=== PATIENT | female | born 1930 | race Caucasian/White ===

== ENCOUNTER 2016-12-23 07:20 | Emergency (ER) | payer MEDICARE, MEDICAID ==
[2016-12-23 08:11] LABS: Urine Bilirubin Negative (NEGATIVE); Urine Ketone 5 mg/dL (NEGATIVE); Urine Nitrite Negative (NEGATIVE); Urine Protein Negative (NEGATIVE); Urine Specific Gravity 1.015 SP.GR. (1.005-1.010); Urine Urobilinogen Normal (NORMAL)
[2016-12-23 08:12] LABS: Hematocrit 51.5 % (37.0-47.0); Hemoglobin 16.8 gm/dL (12.5-16.0); Mean Cell Volume 90.4 fl (78-100); Mean Corpuscular Hemoglobin 29.5 pg (27-31); Mean Corpuscular Hgb Conc 32.6 g/dl (32-36); Mean Platelet Volume 11.5 fl (6.0-9.5); Neutrophil # 8.2 K/mm3 (1.3-6.0); Neutrophil % 77.2 % (42-75.0); Platelet Count 228 K/mm3 (150-450); Red Cell Distribution Width 13.8 % (11.5-14.0); White Blood Count 10.6 K/mm3 (4.0-10.5)
[2016-12-23 08:23] LABS: INR 1.03 INR (0.90-1.10); Partial Thrombolplastin Time 27.4 Seconds (24-32); Prothrombin Time (Patient) 10.7 Seconds (9.4-11.4)
[2016-12-23 08:26] LABS: Albumin * 4.6 gm/dl (3.4-5.0); Anion Gap 12.8 mmol/L (6.8-13.8); BUN/Creatinine Ratio 13.7 (9.0-21.6); Bilirubin, Total 1.1 mg/dL (0.0-1.1); Ca. Corrected For Albumin 8.7 mg/dL (8.4-10.2); Calcium * 9.5 mg/dL (7.9-10.9); Potassium 3.8 mmol/L (3.4-4.6); Total Protein 9.1 gm/dL (6.2-8.2)
[2016-12-23 08:29] LABS: Urine Appearance Clear; Urine Bacteria None Seen; Urine Blood 10 /ul (NEGATIVE); Urine Color Yellow; Urine RBC 0-5 /hpf (0-5); Urine WBC TRACE /hpf (0-5)
--- NOTE | 2016-12-23 08:39 | ERNOTE ---
GI Bleeding/Rectal Pain ER Date of Service: 12/23/16 Presenting Symptoms: rectal bleeding Time Seen by Provider: 12/23/16 08:24 Source: patient, family Exam Limitations: no limitations Immunizations: IMMUNIZATION HX Immunizations Up to Date Yes History of Influenza Vaccine Yes Hx Pneumococcal Vaccination Yes Allergies/Adverse Reactions: Allergies aspirin Allergy (Verified 12/23/16 07:35) ciprofloxacin Allergy (Verified 12/23/16 07:35) codeine Allergy (Verified 12/23/16 07:35) levofloxacin Allergy (Verified 12/23/16 07:35) morphine Allergy (Verified 12/23/16 07:35) Sulfa (Sulfonamide Antibiotics) Allergy (Verified 12/23/16 07:35) amoxicillin trihydrate [From Augmentin] Adverse Reaction (Verified 12/23/16 07: 35) cephalexin Adverse Reaction (Verified 12/23/16 07:35) potassium clavulanate [From Augmentin] Adverse Reaction (Verified 12/23/16 07:35 ) Home Medications: HOME MEDICATIONS Levothyroxine Sodium [Synthroid] 50 mcg PO DAILY 12/11/15 [Last Taken 12/11/15 07:00] Nifedipine [Adalat cc] 60 mg PO DAILY 12/11/15 [Last Taken 12/11/15 07:00] Acetaminophen [Tylenol] 650 mg PO QID PRN #0 tablet 12/16/15 [Last Taken Unknown ] Polyethylene Glycol 3350 [Miralax] 17 gm PO BID #1 btl 12/16/15 [Last Taken Unknown] Promethazine HCl 12.5 mg PO QID PRN #12 tablet 12/23/16 [Last Taken Unknown] Narrative: At about 1400 yesterday began having bowel movements. To begin, normal texture , then became loose and several in number. This morning, three loose bowel movements, each with gross bright red blood. None in the [facility] ER so far. Also , left sided lower abdominal cramps, waxing and waning. No vomiting. No fever. Last colonoscopy over ten years ago. Previous PUD with part of her stomach removed because of it. Timing: intermittent Quality/Severity: Present: moderate Nausea/Vomiting: Present: none Abdominal Pain: Present: LLQ Rectal Bleeding: Present: blood mixed with stool Associated Symptoms: Denies: fainting, dizziness, light headedness, rectal pain Prior Treament: Denies: recently seen, similar symptoms before, currently on antibiotics Review of Systems - Review of Systems Constitutional: Present: no symptoms reported EYE: Present: no symptoms reported ENT: Present: other - chronic post nasal drip and sinus problems. Respiratory: Present: no symptoms reported Cardiology: Present: no symptoms reported Gastrointestinal/Abdominal: Present: See HPI Genitourinary: Present: no symptoms reported Musculoskeletal: Present: no symptoms reported Skin: Present: no symptoms reported Neurological: Present: no symptoms reported Endocrine: Present: no symptoms reported Hematologic/Lymphatic: Present: no symptoms reported Psych: Present: no symptoms reported All Other Systems: All systems neg except as marked - Patient's Past Medical History Patient History - Medical: Cataracts, Headache, Hypothyroidism, UTI'S Patient History - Cardiac/Respiratory: COPD, Hypertension Patient History - Cancer: No Hx of Cancer Patient History - Surgical Procedures: Hysterectomy, Other Patient History - Other: None - Family History Mother Family History - Medical: , Diabetes Type 2 Insulin Dependent Father Family History - Medical: - Social History Living Situations: alone Abuse History: No History of abuse Psych History: No pertinent hx Smoking Status: Former smoker Have you smoked in the past 12 months: No Do you dip or chew tobacco: No Alcohol Use: none Drug Use: none - Immunizations Immunizations Up to Date: Yes Hx Pneumococcal Vaccination: Yes History of Influenza Vaccine: Yes Physical Exam - Physical Exam General Appearance: Present: wd/wn, alert, no apparent distress Eye Exam: Normal inspection: bilateral, PERRL: bilateral, EOMI: bilateral Ears, Nose, Throat: Present: normal ENT inspection, hearing grossly normal Neck: Present: normal inspection, nontender Respiratory: Present: no respiratory distress, normal breath sounds Cardiovascular/Chest: Present: regular rate, rhythm, no murmur Gastrointestinal/Abdominal: Present: normal bowel sounds, nondistended, soft, no organomegaly, tenderness - left colon Back Exam: Present: normal inspection, no CVA tenderness, no vertebral tenderness Extremity Exam: Present: normal inspection, no edema Neurological Exam: Present: alert, oriented, normal mood/affect Skin Exam: Present: normal color, warm/dry ED Progress - Results and Orders Patient's Lab Results:: I have reviewed the patient's lab results. - Vital Signs Patient's Vital Signs:: I have reviewed the patient's vital signs. Vital Signs: Vital Signs 12/23/16 07:24 Temperature 36.0 C L Pulse Rate 99 Respiratory 15 Rate Blood Pressure 164/84 O2 Sat by Pulse 93 Oximetry - CT/Ultrasound CT/Ultrasound Narrative: I have reviewed the CT scan report. COPD lung bases. Pectus Excavatum.. Mild fatty infiltration of liver. Renal cysts. 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 Possible colitis. - Progress/Reassessment Chief Complaint: GI Bleed Progress Note-Subjective: 12/23/16 12:53 Patient in no distress whatsoever. Desats to less than 90% on room air, most likely related to chronic emphysematous change lung, and chronic. Possible colitis from splenic flexure distal. Departure Clinical Impression: Rectal bleeding - Departure Disposition: Home self-care Condition: Good Instructions: Bloody Diarrhea, Clear Liquid Diet, [id number] Additional Instructions: Tomorrow morning call your doctor, see her tomorrow or the next day. Rest. Clear liquids only for 72 hours. Referrals: Ria Schofield MD [Primary Care Provider] - Prescriptions: Promethazine HCl 12.5 mg PO QID PRN #12 tablet PRN Reason: cramps
[2016-12-23] MEDS ORDERED: DIATRIZOATE MEGLU/DIATRIZO SOD 30 ML BTL ONE (09:37)
[2016-12-23] MEDS ORDERED: DIATRIZOATE MEGLU/DIATRIZO SOD 30 ML BTL PO ONE (09:44)
[2016-12-23 12:54] VITALS: BP 164/71
== END 2016-12-23 13:16 | disposition home or self-care (01) ==
LOC: ER 07:20
DX: K62.5 Hemorrhage of anus and rectum (principal); E03.9 Hypothyroidism, unspecified; Z87.891 Personal history of nicotine dependence

== ENCOUNTER 2017-03-21 09:15 | Inpatient (IN) | payer MEDICARE, MEDICAID ==
--- NOTE | 2017-03-21 09:54 | ERNOTE ---
Dyspnea - Date Date of Service: 03/21/17 - General Presenting Symptoms: shortness of breath, difficulty of breathing Time Seen by Provider: 03/21/17 09:43 Source: patient - Immun/Allergies/Home Medications Immunizations: IMMUNIZATION HX Immunizations Up to Date Yes History of Influenza Vaccine Yes Hx Pneumococcal Vaccination Yes Allergies/Adverse Reactions: Allergies aspirin Allergy (Verified 03/21/17 14:54) ciprofloxacin Allergy (Verified 03/21/17 14:54) codeine Allergy (Verified 03/21/17 14:54) levofloxacin Allergy (Verified 03/21/17 14:54) morphine Allergy (Verified 03/21/17 14:54) Sulfa (Sulfonamide Antibiotics) Allergy (Verified 03/21/17 14:54) amoxicillin trihydrate [From Augmentin] Adverse Reaction (Verified 03/21/17 14: 54) cephalexin Adverse Reaction (Verified 03/21/17 14:54) potassium clavulanate [From Augmentin] Adverse Reaction (Verified 03/21/17 14:54 ) Home Medications: HOME MEDICATIONS Levothyroxine Sodium [Synthroid] 50 mcg PO DAILY 12/11/15 [Last Taken 12/11/15 07:00] NIFEdipine [Adalat cc] 60 mg PO DAILY 12/11/15 [Last Taken 12/11/15 07:00] Acetaminophen [Tylenol] 650 mg PO QID PRN #0 tablet 12/16/15 [Last Taken Unknown ] Albuterol Sulfate [Ventolin Hfa] 1 puff IH PRN PRN 03/21/17 [Last Taken Unknown] Atorvastatin Calcium 10 mg PO DAILY 03/21/17 [Last Taken Unknown] Fluticasone Propionate [Flovent Diskus] 100 mcg IH PRN PRN 03/21/17 [Last Taken Unknown] Polyethylene Glycol 3350 [Miralax] 17 gm PO BID PRN 03/21/17 [Last Taken Unknown ] - History of Present Illness Narrative: increased sob x 2 weeks, EVANS, increase BLE swelling last few days Date (Duration): 03/21/17 Severity: mild Treatment [employer]: by patient Initiating event: Reports: none Frequency of episodes: Reports: frequent episodes Modifying Factors - (Improves): Reports: nothing Modifying Factors (Worsens): Reports: nothing Associated Symptoms-Dyspnea: Reports: sweating, cough, ankle/leg swelling, weakness. Denies: fever/chills, muscle spasms, loss of appetite Review of Systems - Review of Systems Constitutional: Present: weakness, fatigue. Absent: recent illness, fever, chills EYE: Present: no symptoms reported ENT: Present: nose congestion, nasal drainage Respiratory: Present: shortness of breath, cough, orthopnea, wheezing Cardiology: Present: edema. Absent: chest pain Gastrointestinal/Abdominal: Present: no symptoms reported Genitourinary: Present: no symptoms reported Musculoskeletal: Present: no symptoms reported Skin: Present: no symptoms reported Neurological: Present: no symptoms reported Endocrine: Present: intolerance to heat Hematologic/Lymphatic: Present: no symptoms reported Psych: Present: no symptoms reported - Patient's Past Medical History Patient History - Medical: Cataracts, Headache, Hypothyroidism, UTI'S Patient History - Cardiac/Respiratory: COPD, Hypertension Patient History - Cancer: No Hx of Cancer Patient History - Surgical Procedures: Hysterectomy, Other Patient History - Other: None - Family History Mother Family History - Medical: , Diabetes Type 2 Insulin Dependent Father Family History - Medical: - Social History Living Situations: home Abuse History: No History of abuse Psych History: No pertinent hx Smoking Status: Former smoker Alcohol Use: none Drug Use: none - Immunizations Immunizations Up to Date: Yes Hx Pneumococcal Vaccination: Yes History of Influenza Vaccine: Yes Physical Exam - Physical Exam Narrative: patient resp rate 30, [id number] retracting, lung sounds diminished. exp wheezing. dropping SPO2 with movement down to 85% on room air, walking and talking at times. General Appearance: Present: wd/wn, alert, mild distress Eye Exam: Normal inspection: bilateral Ears, Nose, Throat: Present: normal ENT inspection, normal pharynx Neck: Present: normal inspection, nontender Respiratory: Present: chest nontender, decreased breath sounds Cardiovascular/Chest: Present: regular rate, rhythm, normal peripheral pulses Gastrointestinal/Abdominal: Present: normal bowel sounds, nontender, soft Back Exam: Present: normal inspection, normal range of motion, no CVA tenderness Extremity Exam: Present: pedal edema Neurological Exam: Present: alert, oriented, normal mood/affect, normal cerebellar test Skin Exam: Present: normal color, warm/dry Lymphatic Exam: Present: no adenopathy ED Progress - Results and Orders Patient's Lab Results:: I have reviewed the patient's lab results. Results and Orders: patient being admitted - Vital Signs Vital Signs: Vital Signs 03/21/17 09:25 Temperature 37.1 C Pulse Rate 92 Respiratory 16 Rate Blood Pressure 145/73 O2 Sat by Pulse 96 Oximetry - X-Ray X-Ray #1 X-Ray: chest Interpretation: Reviewed by me X-ray Comments: Technique: PA and lateral views of the chest are compared to prior dated November 06, 2016 Findings: Diffuse hyperinflation of the lungs bilaterally with flattening of the hemidiaphragm. Extensive chronic scarring and calcified granulomas. The lungs are clear bilaterally. There is no consolidation, pleural effusion or pneumothorax. Cardiac silhouette and pulmonary vasculature are normal. Severe atherosclerosis and elongation of the thoracic aorta. The osseous structures demonstrate degenerative changes of the spine and shoulders. IMPRESSION: NO ACUTE CARDIOPULMONARY ABNORMALITY IDENTIFIED. Electronically signed by Emmanuel Cordero D.O.. - CT/Ultrasound CT/Ultrasound Narrative: Indication: Shortness of breath. COPD. Emphysema. Elevated d-dimer. Technique: Contiguous axial CT images through the chest after administration of intravenous contrast with subsequent coronal reformatted images, utilizing the standard CT pulmonary angiogram protocol. Comparison: Prior chest CT dated December 03, 2011. Findings: There is adequate opacification of the pulmonary arterial system. No intraluminal filling defects to suggest pulmonary embolism. The aorta shows diffuse atherosclerosis but is normal caliber and course without aneurysmal dilation or evidence for dissection. There is extensive severe hyperinflation lungs bilaterally. There is extensive severe centrilobular emphysematous changes and bulla formation. Scattered calcified granulomas. The lungs are clear bilaterally. No consolidation, pleural effusion or pneumothorax. No mediastinal or hilar lymphadenopathy. Calcified mediastinal and hilar lymph nodes are seen. The osseous structures demonstrate extensive degenerative change of the spine and shoulders. Major pectus excavatum deformity. Associated mass effect on the heart. IMPRESSION: NO EVIDENCE FOR PULMONARY EMBOLISM OR ACUTE INTRATHORACIC ABNORMALITY IDENTIFIED. Electronically signed by Emmanuel Cordero D.O.. - Progress/Reassessment Chief Complaint: Dyspnea Progress:: Unchanged Plan - Plan Plan: admission Departure Clinical Impression: Acute exacerbation of chronic obstructive pulmonary disease (COPD) - Departure Disposition: [facility] Condition: Good
[2017-03-21] MEDS ORDERED: ALBUTEROL SULFATE/IPRATROPIUM 3 ML NEBU IH ONE ×2 (09:58→10:25)
[2017-03-21] MEDS ORDERED: ALBUTEROL SULFATE 2.5 MG/0.5 ML VIAL.NEB IH ONE (10:11)
[2017-03-21 10:16] LABS: Urine Appearance Clear; Urine Bacteria TRACE; Urine Bilirubin Negative (NEGATIVE); Urine Blood Negative /ul (NEGATIVE); Urine Color Yellow; Urine Ketone 5 mg/dL (NEGATIVE); Urine Nitrite Negative (NEGATIVE); Urine Protein Negative (NEGATIVE); Urine RBC 0-5 /hpf (0-5); Urine Urobilinogen Normal (NORMAL)
[2017-03-21 10:17] LABS: Hematocrit 42.8 % (37.0-47.0); Hemoglobin 14.1 gm/dL (12.5-16.0); Mean Cell Volume 89.2 fl (78-100); Mean Corpuscular Hemoglobin 29.4 pg (27-31); Mean Corpuscular Hgb Conc 32.9 g/dl (32-36); Mean Platelet Volume 11.3 fl (6.0-9.5); Neutrophil # 4.8 K/mm3 (1.3-6.0); Neutrophil % 73.5 % (42-75.0); Platelet Count 256 K/mm3 (150-450); Red Cell Distribution Width 13.9 % (11.5-14.0); White Blood Count 6.5 K/mm3 (4.0-10.5)
[2017-03-21 10:42] LABS: ALT 45 U/L (19-67); AST 47 U/L (0-48); Alkaline Phosphatase * 164 U/L (50-170); Anion Gap 11.2 mmol/L (6.8-13.8); BNP * 1697 pg/mL (5-550); BUN/Creatinine Ratio 11.4 (9.0-21.6); Bilirubin, Total 0.9 mg/dL (0.0-1.1); Blood Urea Nitrogen 10 mg/dL (3-23); Ca. Corrected For Albumin 8.8 mg/dL (8.4-10.2); Calcium * 9.1 mg/dL (7.9-10.9); Carbon Dioxide 30.6 mmol/L (24-32.6); Chloride 100 mmol/L (97-106); Glucose * 97 mg/dL (70-110); Potassium 3.8 mmol/L (3.4-4.6); Sodium 138 mmol/L (132-142); Troponin I Less than 0.017 ng/ml (0.00-0.10)
[2017-03-21] MEDS ORDERED: FUROSEMIDE 10 MG/ML VIAL IV ONE ×2 (13:00→15:50)
[2017-03-21] MEDS ORDERED: FUROSEMIDE 10 MG/ML VIAL ONE (14:12)
[2017-03-21] MEDS ORDERED: guaiFENesin 100 MG/5 ML BTL PO PRN (15:54)
[2017-03-21] MEDS ORDERED: ACETAMINOPHEN 325 MG TABLET PO PRN (16:06)
[2017-03-21] MEDS ORDERED: POLYETHYLENE GLYCOL 3350 119 GM BTL PO PRN (16:06)
[2017-03-21] MEDS ORDERED: ALBUTEROL SULFATE 2.5 MG/3 ML VIAL.NEB IH PRN (16:11)
[2017-03-21] MEDS ORDERED: BUDESONIDE 0.5 MG/2 ML VIAL.NEB IH PRN (16:15)
[2017-03-21] MEDS: ALBUTEROL SULFATE/IPRATROPIUM 3 ML NEBU IH SCH ×2 (16:18→19:43)
--- NOTE | 2017-03-21 16:27 | HP ---
<Dee Rush - Last Filed: 03/21/17 16:29> Chief Complaint - Chief Complaint Date of Service: 03/21/17 Time of Service: 14:50 Chief Complaint: dyspnea, respiratory failure, lower extremity edema History of Present Illness: Alba is an 86 year old female with a PMH of COPD (not on home O2, on inhaled steroid chronically), hypothyroidism, pulm HTN, HTN, heart murmur who presented to the ER with c/o of severe dyspnea x2 weeks with increasing lower extremity edema x2 days. also c/o weakness, fatigue, body aches, no fever, and productive cough with yellow sputum. ambulation in the ER dropped patient's saturations to 86% on RA. ER eval indicated cxr with hyperinflated lungs but no acute changes. elevated bnp at 1697, negative troponin, UA with positive leukocyte esterase, positive wbc and trace bacteria with culture pending. recent echo 01/15/17 showed normal ef with moderate LVH, mild MV disease, trace AR and pulm HTN with RVSP 38 - 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 Patient will be admitted with copd exac and acute respiratory failure with hypoxia - this constitutes an inpatient admission. - Patient's Past Medical History Patient History - Medical: Cataracts, Headache, Hypothyroidism, UTI'S Patient History - Cardiac/Respiratory: COPD, Hypertension Patient History - Cancer: No Hx of Cancer Patient History - Surgical Procedures: Hysterectomy, Other Patient History - Other: None LMP (females 10-50): Menopausal - Family History Mother Family History - Medical: , Diabetes Type 2 Insulin Dependent Family History - Cardiac/Respiratory: CHF Family History - Cancer: No pertinent family hx Father Family History - Medical: Family History - Cardiac/Respiratory: CHF Family History - Cancer: No pertinent family hx - Social History Living Situations: home Abuse History: No History of abuse Psych History: No pertinent hx Smoking Status: Former smoker Have you smoked in the past 12 months: No Alcohol Use: none Drug Use: none - Immunizations Immunizations Up to Date: Yes Hx Pneumococcal Vaccination: Yes History of Influenza Vaccine: Yes Review Of Systems (GEN) - Review of Systems Generalized/Overall Review: Present: Weakness, Malaise, Fatigue EENTM: Present: No Symptoms Reported Respiratory: Present: Cough, Shortness of Breath Cardiac: Present: Edema. Absent: Chest Pain, Syncope Abdominal: Present: No Symptoms Reported Genitourinary: Present: No Symptoms Reported Musculoskeletal: Present: No Symptoms Reported Neurological: Present: No Symptoms Reported Skin: Present: No Symptoms Reported Endocrine: Present: No Symptoms Reported Misc: All systems neg except as marked Immunizations: IMMUNIZATION HX Immunizations Up to Date Yes History of Influenza Vaccine Yes Hx Pneumococcal Vaccination Yes Allergies/Adverse Reactions: Allergies Allergy/AdvReac Type Severity Reaction Status Date / Time aspirin Allergy Verified 03/21/17 14:54 ciprofloxacin Allergy Verified 03/21/17 14:54 codeine Allergy Verified 03/21/17 14:54 levofloxacin Allergy Verified 03/21/17 14:54 morphine Allergy Verified 03/21/17 14:54 Sulfa (Sulfonamide Allergy Verified 03/21/17 14:54 Antibiotics) amoxicillin trihydrate AdvReac Verified 03/21/17 14:54 [From Augmentin] cephalexin AdvReac Verified 03/21/17 14:54 potassium clavulanate AdvReac Verified 03/21/17 14:54 [From Augmentin] Home Medications: HOME MEDICATIONS Levothyroxine Sodium [Synthroid] 50 mcg PO DAILY 12/11/15 [Last Taken 12/11/15 07:00] NIFEdipine [Adalat cc] 60 mg PO DAILY 12/11/15 [Last Taken 12/11/15 07:00] Acetaminophen [Tylenol] 650 mg PO QID PRN #0 tablet 12/16/15 [Last Taken Unknown ] Albuterol Sulfate [Ventolin Hfa] 1 puff IH PRN PRN 03/21/17 [Last Taken Unknown] Atorvastatin Calcium 10 mg PO DAILY 03/21/17 [Last Taken Unknown] Fluticasone Propionate [Flovent Diskus] 100 mcg IH PRN PRN 03/21/17 [Last Taken Unknown] Polyethylene Glycol 3350 [Miralax] 17 gm PO BID PRN 03/21/17 [Last Taken Unknown ] Exam - Exam Vital Signs: Vital Signs - Last Taken Temp 37.2 C 03/21/17 14:45 Pulse 85 03/21/17 16:18 Resp 20 03/21/17 16:18 BP 145/71 03/21/17 14:45 Pulse Ox 90 03/21/17 16:18 Constitutional: Present: Alert, Oriented x3, Cooperative, No distress - on O2 via nc, Elderly, Thin and frail ENT Exam: Present: hearing grossly normal Eye Exam: bilateral eye: normal inspection Neck: Present: full range of motion, supple Back Exam: Present: no vertebral tenderness Breasts: Present: Exam deferred Respiratory: Present: no respiratory distress, no accessory muscle use, decreased breath sounds Cardiovascular/Chest: Present: normal peripheral pulses, regular rate, rhythm, no chest tenderness, systolic murmur - faint blowing murmur noted, other - pectus ecatvum, edema - +1 lower leg edema bilat; +2 ankle and foot edema bilat. Absent: friction rub Peripheral Pulses: dorsalis-pedis (R): 2+, dorsalis-pedis (L): 2+, radial (R): 2 +, radial (L): 2+ Abdomen: Present: soft, nontender, nondistended /Rectal: Present: Exam deferred Extremity: Present: non-tender, pedal edema - +2 bilat Skin Exam: Present: normal color, warm/dry, no cyanosis Neurologic: Present: alert, oriented x 3 Diagnostic Studies: Laboratory Results WBC 6.5 K/mm3 (4.0-10.5) 03/21/17 10:04 RBC 4.80 M/mm3 (4.2-5.4) 03/21/17 10:04 Hgb 14.1 gm/dL (12.5-16.0) 03/21/17 10:04 Hct 42.8 % (37.0-47.0) 03/21/17 10:04 MCV 89.2 fl (78-100) 03/21/17 10:04 MCH 29.4 pg (27-31) 03/21/17 10:04 MCHC 32.9 g/dl (32-36) 03/21/17 10:04 RDW 13.9 % (11.5-14.0) 03/21/17 10:04 Plt Count 256 K/mm3 (150-450) 03/21/17 10:04 MPV 11.3 fl (6.0-9.5) H 03/21/17 10:04 Immature Gran % (Auto) 0.20 % (0.001-0.429) 03/21/17 10:04 Immature Gran # (Auto) 0.01 K/mm3 (0.000-0.0310) 03/21/17 10:04 Neutrophils % 73.5 % (42-75.0) 03/21/17 10:04 Lymphocytes % 16.3 % (20-51) L 03/21/17 10:04 Monocytes % 8.1 % (0.0-9) 03/21/17 10:04 Eosinophils % 0.8 % (0.0-3.0) 03/21/17 10:04 Basophils % 1.1 % (0.0-1.0) H 03/21/17 10:04 Nucleated RBC % 0.0 k/mm3 (0-1) 03/21/17 10:04 Neutrophils # 4.8 K/mm3 (1.3-6.0) 03/21/17 10:04 Lymphocytes # 1.1 k/mm3 (1.5-3.5) L 03/21/17 10:04 Monocytes # 0.5 k/mm3 (0.0-1.0) 03/21/17 10:04 Eosinophils # 0.1 k/mm3 (0.0-0.7) 03/21/17 10:04 Absolute Basophils 0.1 k/mm3 (0.0-0.1) 03/21/17 10:04 ESR 16 mm/hr (0-15) H 03/21/17 10:04 D-Dimer 1.06 mg/L (0.19-0.49) H 03/21/17 10:04 pCO2 33.4 mmHg (32.0-45.0) 03/21/17 11:33 pO2 51.0 mmHg (83.0-108.0) L 03/21/17 11:33 HCO3 23.2 mmol/L (21.0-28.0) 03/21/17 11:33 Total CO2 24.2 mmol/L (19.0-24.0) H 03/21/17 11:33 Base Excess 0.1 mmol/L (-2.0-3.0) 03/21/17 11:33 ABG pH 7.46 (7.35-7.45) H 03/21/17 11:33 ABG O2 Sat (Measured) 88.4 % (94.0-98.0) L 03/21/17 11:33 Sodium 138 mmol/L (132-142) 03/21/17 10:04 Plasma Sodium 138 mmol/L (130-142) 03/21/17 10:04 Potassium 3.8 mmol/L (3.4-4.6) 03/21/17 10:04 Chloride 100 mmol/L (97-106) 03/21/17 10:04 Carbon Dioxide 30.6 mmol/L (24-32.6) 03/21/17 10:04 Anion Gap 11.2 mmol/L (6.8-13.8) 03/21/17 10:04 BUN 10 mg/dL (3-23) 03/21/17 10:04 Creatinine 0.88 mg/dL (0.4-1.4) 03/21/17 10:04 Est GFR (Non-Af Amer) 65 mL/min (60-130) 03/21/17 10:04 BUN/Creatinine Ratio 11.4 (9.0-21.6) 03/21/17 10:04 Random Glucose 97 mg/dL (70-110) 03/21/17 10:04 Calcium 9.1 mg/dL (7.9-10.9) 03/21/17 10:04 Calcium Adj for Albumin 8.8 mg/dL (8.4-10.2) 03/21/17 10:04 Total Bilirubin 0.9 mg/dL (0.0-1.1) 03/21/17 10:04 AST 47 U/L (0-48) 03/21/17 10:04 ALT 45 U/L (19-67) 03/21/17 10:04 Alkaline Phosphatase 164 U/L (50-170) 03/21/17 10:04 Troponin I Less than 0.017 ng/ml (0.00-0.10) 03/21/17 10:04 B-Natriuretic Peptide 1697 pg/mL (5-550) H 03/21/17 10:04 Total Protein 8.0 gm/dL (6.2-8.2) 03/21/17 10:04 Albumin 4.0 gm/dl (3.4-5.0) 03/21/17 10:04 Procalcitonin Less than 0.05 ng/mL (0.05-0.50) L 03/21/17 10:04 Urine Color Yellow 03/21/17 10:09 Urine Appearance Clear 03/21/17 10:09 Urine pH 7.0 pH (5.0-7.0) 03/21/17 10:09 Ur Specific Leland 1.010 SP.GR. (1.005-1.010) 03/21/17 10:09 Urine Protein Negative mg/dL (NEGATIVE) 03/21/17 10:09 Urine Glucose (UA) Negative mg/dL (NEGATIVE) 03/21/17 10:09 Urine Ketones 5 mg/dL (NEGATIVE) 03/21/17 10:09 Urine Blood Negative /ul (NEGATIVE) 03/21/17 10:09 Urine Nitrate Negative (NEGATIVE) 03/21/17 10:09 Urine Bilirubin Negative mg/dl (NEGATIVE) 03/21/17 10:09 Urine Urobilinogen Normal EU/dl (NORMAL) 03/21/17 10:09 Ur Leukocyte Esterase 100 /ul (NEGATIVE) H 03/21/17 10:09 Urine RBC 0-5 /hpf (0-5) 03/21/17 10:09 Urine WBC 5-10 /hpf (0-5) H 03/21/17 10:09 Ur Epithelial Cells 0-5 /hpf (0-5) 03/21/17 10:09 Urine Bacteria Trace (NONE) 03/21/17 10:09 Urine Culture Comments Culture to follow 03/21/17 10:09 Assessment/Plan - Narrative Narrative: COPD exacerbation - start solumedrol 60 mg iv q 6 hours - Day #1 - Duoneb tx QID - Incentive spirometer q1 hour while awake - cornet q 2 hours while awake - Cover with abx given hypoxia and comorbidities - Rocephin 1 gm iv q 24 hours - Day #1 - Azithromycin 500 mg iv q 24 hours - Day #1 - add probiotic. - check labs in the am. Respiratory failure with hypoxia - likely due to COPD exacerbation - likely to improve with: - iv steroids, iv abx and duoneb treatments - wean O2 as able Pulm Htn - likely contributing to patient's lower extremity edema. - will give pt a total of 80 mg lasix iv x1 today 03/21/17. - daily weights - strict I&Os lower extremity edema - likely due to pulm htn and suspected diastolic dysfunction, which is unable to be fully assessed due to chest abnormality - total of 80 mg lasix iv x1 today 03/21/17 - add KCl 40 mEq PO x1 03/21/17 - bilat lexi hose - strict I&Os - daily weights - CHF teaching - will need to weigh self daily at home and monitor weight at home. - check labs in the am Diastolic dysfunction, suspected - see above UTI, suspected - urine culture pending - await final culture - has been started on rocephin iv for copd exac, which will cover for uti as well. HTN, chronic - cont home meds hypothyroidism, stable - cont home meds - recent tsh check outpatient wnl. Code status: full code VTE: lovenox / knee high lexi hose GI proph: protonix po. - Assessment/Plan (1) Acute exacerbation of chronic obstructive pulmonary disease (COPD) Problem: Acute (2) Acute respiratory failure with hypoxia Problem: Acute (3) Pulmonary HTN Problem: Acute (4) Lower extremity edema Problem: Acute (5) Diastolic dysfunction Problem: Suspected (6) UTI (urinary tract infection) Problem: Suspected QualifierTitle: Urinary tract infection type: acute cystitis Hematuria presence: without hematuria Qualified Code(s): N30.00 - Acute cystitis without hematuria (7) Aortic heart murmur Problem: Chronic (8) HTN (hypertension) Problem: Chronic QualifierTitle: Hypertension type: essential hypertension Qualified Code( s): I10 - Essential (primary) hypertension (9) Hypothyroidism Problem: Chronic QualifierTitle: Hypothyroidism type: acquired Qualified Code(s): E03.9 - Hypothyroidism, unspecified <Jignesh Barragan - Last Filed: 03/21/17 18:50> Immunizations: IMMUNIZATION HX Immunizations Up to Date Yes History of Influenza Vaccine Yes Hx Pneumococcal Vaccination Yes Exam - Exam Vital Signs: Vital Signs - Last Taken Temp 37.2 C 03/21/17 14:45 Pulse 82 03/21/17 16:39 Resp 20 03/21/17 16:28 BP 145/71 03/21/17 16:39 Pulse Ox 90 03/21/17 16:18 Diagnostic Studies: Laboratory Results WBC 6.5 K/mm3 (4.0-10.5) 03/21/17 10:04 RBC 4.80 M/mm3 (4.2-5.4) 03/21/17 10:04 Hgb 14.1 gm/dL (12.5-16.0) 03/21/17 10:04 Hct 42.8 % (37.0-47.0) 03/21/17 10:04 MCV 89.2 fl (78-100) 03/21/17 10:04 MCH 29.4 pg (27-31) 03/21/17 10:04 MCHC 32.9 g/dl (32-36) 03/21/17 10:04 RDW 13.9 % (11.5-14.0) 03/21/17 10:04 Plt Count 256 K/mm3 (150-450) 03/21/17 10:04 MPV 11.3 fl (6.0-9.5) H 03/21/17 10:04 Immature Gran % (Auto) 0.20 % (0.001-0.429) 03/21/17 10:04 Immature Gran # (Auto) 0.01 K/mm3 (0.000-0.0310) 03/21/17 10:04 Neutrophils % 73.5 % (42-75.0) 03/21/17 10:04 Lymphocytes % 16.3 % (20-51) L 03/21/17 10:04 Monocytes % 8.1 % (0.0-9) 03/21/17 10:04 Eosinophils % 0.8 % (0.0-3.0) 03/21/17 10:04 Basophils % 1.1 % (0.0-1.0) H 03/21/17 10:04 Nucleated RBC % 0.0 k/mm3 (0-1) 03/21/17 10:04 Neutrophils # 4.8 K/mm3 (1.3-6.0) 03/21/17 10:04 Lymphocytes # 1.1 k/mm3 (1.5-3.5) L 03/21/17 10:04 Monocytes # 0.5 k/mm3 (0.0-1.0) 03/21/17 10:04 Eosinophils # 0.1 k/mm3 (0.0-0.7) 03/21/17 10:04 Absolute Basophils 0.1 k/mm3 (0.0-0.1) 03/21/17 10:04 ESR 16 mm/hr (0-15) H 03/21/17 10:04 D-Dimer 1.06 mg/L (0.19-0.49) H 03/21/17 10:04 pCO2 33.4 mmHg (32.0-45.0) 03/21/17 11:33 pO2 51.0 mmHg (83.0-108.0) L 03/21/17 11:33 HCO3 23.2 mmol/L (21.0-28.0) 03/21/17 11:33 Total CO2 24.2 mmol/L (19.0-24.0) H 03/21/17 11:33 Base Excess 0.1 mmol/L (-2.0-3.0) 03/21/17 11:33 ABG pH 7.46 (7.35-7.45) H 03/21/17 11:33 ABG O2 Sat (Measured) 88.4 % (94.0-98.0) L 03/21/17 11:33 Sodium 138 mmol/L (132-142) 03/21/17 10:04 Plasma Sodium 138 mmol/L (130-142) 03/21/17 10:04 Potassium 3.8 mmol/L (3.4-4.6) 03/21/17 10:04 Chloride 100 mmol/L (97-106) 03/21/17 10:04 Carbon Dioxide 30.6 mmol/L (24-32.6) 03/21/17 10:04 Anion Gap 11.2 mmol/L (6.8-13.8) 03/21/17 10:04 BUN 10 mg/dL (3-23) 03/21/17 10:04 Creatinine 0.88 mg/dL (0.4-1.4) 03/21/17 10:04 Est GFR (Non-Af Amer) 65 mL/min (60-130) 03/21/17 10:04 BUN/Creatinine Ratio 11.4 (9.0-21.6) 03/21/17 10:04 Random Glucose 97 mg/dL (70-110) 03/21/17 10:04 Calcium 9.1 mg/dL (7.9-10.9) 03/21/17 10:04 Calcium Adj for Albumin 8.8 mg/dL (8.4-10.2) 03/21/17 10:04 Total Bilirubin 0.9 mg/dL (0.0-1.1) 03/21/17 10:04 AST 47 U/L (0-48) 03/21/17 10:04 ALT 45 U/L (19-67) 03/21/17 10:04 Alkaline Phosphatase 164 U/L (50-170) 03/21/17 10:04 Troponin I Less than 0.017 ng/ml (0.00-0.10) 03/21/17 10:04 B-Natriuretic Peptide 1697 pg/mL (5-550) H 03/21/17 10:04 Total Protein 8.0 gm/dL (6.2-8.2) 03/21/17 10:04 Albumin 4.0 gm/dl (3.4-5.0) 03/21/17 10:04 Procalcitonin Less than 0.05 ng/mL (0.05-0.50) L 03/21/17 10:04 Urine Color Yellow 03/21/17 10:09 Urine Appearance Clear 03/21/17 10:09 Urine pH 7.0 pH (5.0-7.0) 03/21/17 10:09 Ur Specific Leland 1.010 SP.GR. (1.005-1.010) 03/21/17 10:09 Urine Protein Negative mg/dL (NEGATIVE) 03/21/17 10:09 Urine Glucose (UA) Negative mg/dL (NEGATIVE) 03/21/17 10:09 Urine Ketones 5 mg/dL (NEGATIVE) 03/21/17 10:09 Urine Blood Negative /ul (NEGATIVE) 03/21/17 10:09 Urine Nitrate Negative (NEGATIVE) 03/21/17 10:09 Urine Bilirubin Negative mg/dl (NEGATIVE) 03/21/17 10:09 Urine Urobilinogen Normal EU/dl (NORMAL) 03/21/17 10:09 Ur Leukocyte Esterase 100 /ul (NEGATIVE) H 03/21/17 10:09 Urine RBC 0-5 /hpf (0-5) 03/21/17 10:09 Urine WBC 5-10 /hpf (0-5) H 03/21/17 10:09 Ur Epithelial Cells 0-5 /hpf (0-5) 03/21/17 10:09 Urine Bacteria Trace (NONE) 03/21/17 10:09 Urine Culture Comments Culture to follow 03/21/17 10:09 Assessment/Plan - Procedures Results: Will treat more as acute exacerbation of COPD with acute hypoxic respiratory failure. I personally directed all of the care provided by our nurse practitioner hospitalist for this patient.
[2017-03-21] MEDS: ENOXAPARIN SODIUM 40 MG/0.4 ML SYRG SC SCH (16:33)
[2017-03-21] MEDS: PANTOPRAZOLE SODIUM 40 MG TABLET.EC PO SCH (16:38)
[2017-03-21] MEDS ORDERED: POTASSIUM CHLORIDE 40 MEQ/15 ML BTL PO ONE (16:45)
[2017-03-21] MEDS: METHYLPREDNISOLONE SOD SUCC 60 MG in WATER FOR INJ.,BACTERIOSTATIC 0 ML IV SCH ×2 (16:45→21:09)
[2017-03-21] MEDS: AZITHROMYCIN 500 MG in DEXTROSE 5 % IN WATER 250 ML IV SCH ×2 (17:30)
[2017-03-21] MEDS: SACCHAROMYCES BOULARDII 250 MG CAPSULE PO SCH (20:29)
[2017-03-21] MEDS ORDERED: KETOROLAC TROMETHAMINE 15 MG/ML VIAL IV PRN (22:33)
[2017-03-22] MEDS: METHYLPREDNISOLONE SOD SUCC 60 MG in WATER FOR INJ.,BACTERIOSTATIC 0 ML IV SCH ×4 (04:36→21:25)
[2017-03-22] MEDS: ALBUTEROL SULFATE/IPRATROPIUM 3 ML NEBU IH SCH ×4 (06:07→18:12)
[2017-03-22 06:22] LABS: Hemoglobin 13.7 gm/dL (12.5-16.0); Mean Cell Volume 88.7 fl (78-100); Mean Corpuscular Hemoglobin 29.7 pg (27-31); Mean Corpuscular Hgb Conc 33.4 g/dl (32-36); Mean Platelet Volume 11.9 fl (6.0-9.5); Neutrophil # 3.4 K/mm3 (1.3-6.0); Neutrophil % 83.6 % (42-75.0); Platelet Count 268 K/mm3 (150-450); Red Blood Count 4.62 M/mm3 (4.2-5.4); Red Cell Distribution Width 13.8 % (11.5-14.0)
[2017-03-22 06:31] LABS: Albumin * 3.5 gm/dl (3.4-5.0); Anion Gap 13.2 mmol/L (6.8-13.8); Bilirubin, Total 0.5 mg/dL (0.0-1.1); Ca. Corrected For Albumin 9.1 mg/dL (8.4-10.2); Carbon Dioxide 28.1 mmol/L (24-32.6); Potassium 4.3 mmol/L (3.4-4.6); Total Protein 7.4 gm/dL (6.2-8.2)
[2017-03-22] MEDS: LEVOTHYROXINE SODIUM 50 MCG TABLET PO SCH (07:03)
[2017-03-22] MEDS: PANTOPRAZOLE SODIUM 40 MG TABLET.EC PO SCH (07:07)
[2017-03-22] MEDS ORDERED: CALCIUM CARBONATE 500 MG TAB.CHEW PO PRN (08:06)
--- NOTE | 2017-03-22 08:40 | PN ---
<Dee Rush - Last Filed: 03/22/17 08:40> Subjective - Date and Time Seen Date: 03/22/17 Time: 07:35 Subjective Narrative: c/o bilat leg cramps overnight. feels that breating is better. still on O2 at 1L via nc. denies any pain with walking. Objective - Review of Systems Generalized/Overall Review: Reports: Weakness, Malaise, Fatigue EENTM: Reports: No Symptoms Reported Respiratory: Reports: Cough, Shortness of Breath, Wheezing Cardiac: Reports: No Symptoms Reported Abdominal: Reports: No Symptoms Reported Genitourinary Symptoms: Reports: No Symptoms Reported Musculoskeletal Complaints: Reports: Muscle Pain Neurological: Reports: No Symptoms Reported Skin: Reports: No Symptoms Reported Endocrine: Reports: No Symptoms Reported Misc: All systems neg except as marked - Vitals Vitals: Last Vital Signs Temp 36.8 C 03/22/17 02:18 Pulse 115 H 03/22/17 06:17 Resp 20 03/22/17 06:17 BP 122/69 03/22/17 02:18 Pulse Ox 95 03/22/17 06:55 - Abnormal Lab Findings Abnormal Lab Findings: Abnormal Lab Results 03/22/17 03/22/17 Range/Units 05:38 05:38 MPV 11.9 H (6.0-9.5) fl Immature Gran % (Auto) 0.00 L (0.001-0.429) % Neutrophils % 83.6 H (42-75.0) % Lymphocytes % 13.9 L (20-51) % Lymphocytes # 0.6 L (1.5-3.5) k/mm3 Est GFR (Non-Af Amer) 46 L D (60-130) mL/min Random Glucose 152 H D (70-110) mg/dL - Exam Constitutional: Present: Alert, Cooperative, No distress ENT Exam: Present: hearing grossly normal Neck: Present: full range of motion, supple Breasts: Present: Exam deferred Respiratory: Present: chest non-tender, no respiratory distress, decreased breath sounds, wheezing Cardiovascular/Chest: Present: normal peripheral pulses, regular rate, rhythm, no chest tenderness, no edema, no JVD, other - pectus excavatum noted; faint blowing aortic murmur noted; slow cap refill in bilat toes Abdomen: Present: Normal bowel sounds, soft, nontender, nondistended /Rectal: Present: Exam deferred Extremity: Present: non-tender, no calf tenderness Skin Exam: Present: normal color, warm/dry, no cyanosis Assessment/Plan Plan Narrative: COPD exacerbation - solumedrol 60 mg iv q 6 hours - Day #2 - Duoneb tx QID - Incentive spirometer q1 hour while awake - cornet q 2 hours while awake - Cover with abx given hypoxia and comorbidities - Rocephin 1 gm iv q 24 hours - Day #2 - Azithromycin 500 mg iv q 24 hours - Day #2 - probiotics ordered as well - check labs in the am. - wean off O2 as able - walk with O2 sat monitor to make sure pt can maintain her sats with ambulation Respiratory failure with hypoxia - likely due to COPD exacerbation - see treatment plan above - likely to improve with: - iv steroids, iv abx and duoneb treatments - wean O2 as able Pulm Htn - likely contributing to patient's lower extremity edema. - Lasix 80 mg given iv x1 03/21/17 - weight down 3.1 kg in 24 hours - lower extremity edema significantly improved lower extremity edema - likely due to pulm htn and suspected diastolic dysfunction, which is unable to be fully assessed due to chest abnormality - lasix 80 mg iv given x1 03/21/17 - KCl 40 mEq PO x1 03/21/17 - bilat lexi hose - strict I&Os - daily weights - CHF teaching - will need to weigh self daily at home and monitor weight at home. - check labs in the am Diastolic dysfunction, suspected - see above UTI - urine culture pending - prelim culture growing gram negative bacilli - Rocephin 1 gm iv q 24 hours - Day #2 - await final urine culture weakness - PT/OT ordered - ensure/boost supplements ordered TID leg cramps - Ca2+ 500 mg QID start 03/22/17 - Mg2+ oxide 400 mg daily start 03/22/17 - aqua K pad as needed for comfort hyperglycemia - likely due to IV steroids - monitor for now - if continues to climb above 200, will need to order sliding scale insulin HTN, chronic - cont home meds hypothyroidism, stable - cont home meds - recent tsh check outpatient wnl. Code status: full code VTE: lovenox / knee high lexi hose GI proph: protonix po. - Problems/Diagnosis (1) Acute exacerbation of chronic obstructive pulmonary disease (COPD) Problem: Acute (2) Acute respiratory failure with hypoxia Problem: Acute (3) Pulmonary HTN Problem: Acute (4) Lower extremity edema Problem: Acute (5) Diastolic dysfunction Problem: Suspected (6) UTI (urinary tract infection) Problem: Acute QualifierTitle: Urinary tract infection type: acute cystitis Hematuria presence: without hematuria Qualified Code(s): N30.00 - Acute cystitis without hematuria (7) Aortic heart murmur Problem: Chronic (8) HTN (hypertension) Problem: Chronic QualifierTitle: Hypertension type: essential hypertension Qualified Code( s): I10 - Essential (primary) hypertension (9) Hypothyroidism Problem: Chronic QualifierTitle: Hypothyroidism type: acquired Qualified Code(s): E03.9 - Hypothyroidism, unspecified (10) Weakness generalized Problem: Acute (11) Bilateral leg cramps Problem: Acute (12) Hyperglycemia Problem: Acute <Jignesh Barragan - Last Filed: 03/22/17 13:03> Subjective Subjective Narrative: Poor cap fill legs and feet. absent pedal pulses. good diuresis since yesterday. calcium and magnesium for cramps. bmp in am. continue current treatment. I personally directed all of our nurse practitioner hospitalist's care for this patient. Objective - Vitals Vitals: Last Vital Signs Temp 37.4 C 03/22/17 10:00 Pulse 94 03/22/17 10:11 Resp 20 03/22/17 10:11 BP 123/65 03/22/17 10:00 Pulse Ox 97 03/22/17 10:46 - Abnormal Lab Findings Abnormal Lab Findings: Abnormal Lab Results 03/22/17 03/22/17 Range/Units 05:38 05:38 MPV 11.9 H (6.0-9.5) fl Immature Gran % (Auto) 0.00 L (0.001-0.429) % Neutrophils % 83.6 H (42-75.0) % Lymphocytes % 13.9 L (20-51) % Lymphocytes # 0.6 L (1.5-3.5) k/mm3 Est GFR (Non-Af Amer) 46 L D (60-130) mL/min Random Glucose 152 H D (70-110) mg/dL
[2017-03-22] MEDS: MAGNESIUM OXIDE 400 MG TABLET PO SCH (09:00)
[2017-03-22] MEDS: NIFEdipine 30 MG TAB.SR.24H PO SCH (09:00)
[2017-03-22] MEDS: SACCHAROMYCES BOULARDII 250 MG CAPSULE PO SCH ×2 (09:01→21:25)
[2017-03-22] MEDS: ROSUVASTATIN CALCIUM 10 MG TABLET PO SCH (09:01)
[2017-03-22] MEDS: ENOXAPARIN SODIUM 40 MG/0.4 ML SYRG SC SCH (15:09)
[2017-03-22] MEDS: AZITHROMYCIN 500 MG in DEXTROSE 5 % IN WATER 250 ML IV SCH ×2 (16:34)
[2017-03-23] MEDS: METHYLPREDNISOLONE SOD SUCC 60 MG in WATER FOR INJ.,BACTERIOSTATIC 0 ML IV SCH ×3 (04:22→20:41)
[2017-03-23 04:32] LABS: Anion Gap 11.3 mmol/L (6.8-13.8); Calcium * 8.7 mg/dL (7.9-10.9); Carbon Dioxide 30.1 mmol/L (24-32.6); Estimated Creat Clear 26.7; Potassium 4.4 mmol/L (3.4-4.6)
[2017-03-23] MEDS: ALBUTEROL SULFATE/IPRATROPIUM 3 ML NEBU IH SCH ×4 (06:10→18:19)
[2017-03-23] MEDS: PANTOPRAZOLE SODIUM 40 MG TABLET.EC PO SCH (06:38)
[2017-03-23] MEDS: LEVOTHYROXINE SODIUM 50 MCG TABLET PO SCH (06:38)
[2017-03-23 07:30] LABS: Hematocrit 37.4 % (37.0-47.0); Hemoglobin 12.6 gm/dL (12.5-16.0); Mean Corpuscular Hgb Conc 33.7 g/dl (32-36); Mean Platelet Volume 12.1 fl (6.0-9.5); Platelet Count 246 K/mm3 (150-450); Red Cell Distribution Width 13.9 % (11.5-14.0); White Blood Count 23.6 K/mm3 (4.0-10.5)
[2017-03-23 07:32] LABS: Total Cells Counted 100
[2017-03-23 07:49] LABS: Lymphocyte 5 % (20-51); Monocyte 2 % (0-9); Neutrophil 93 % (42-75); Neutrophil # 21.9 K/mm3 (1.3-6.0)
[2017-03-23 07:51] LABS: Platelet Estimate Normal (NORMAL)
[2017-03-23] MEDS: MAGNESIUM OXIDE 400 MG TABLET PO SCH (08:56)
[2017-03-23] MEDS: ROSUVASTATIN CALCIUM 10 MG TABLET PO SCH (08:56)
[2017-03-23] MEDS: NIFEdipine 30 MG TAB.SR.24H PO SCH (08:56)
[2017-03-23] MEDS: SACCHAROMYCES BOULARDII 250 MG CAPSULE PO SCH ×2 (08:56→20:41)
[2017-03-23] MEDS: CEFEPIME HCL 2 GM in DEXTROSE 5 % IN WATER 100 ML IV SCH ×2 (08:57)
--- NOTE | 2017-03-23 09:17 | PN ---
<Dee Rush - Last Filed: 03/23/17 08:58> Subjective - Date and Time Seen Date: 03/23/17 Time: 08:34 Subjective Narrative: feeling better. on ra while resting. maintained O2 sats till end of ambulation per PT then dropped to 88% on RA. leg cramps better Objective - Review of Systems Generalized/Overall Review: Reports: Weakness, Fatigue EENTM: Reports: No Symptoms Reported Respiratory: Reports: Cough, Shortness of Breath Cardiac: Reports: No Symptoms Reported Abdominal: Reports: No Symptoms Reported Genitourinary Symptoms: Reports: No Symptoms Reported Musculoskeletal Complaints: Reports: No Symptoms Reported Neurological: Reports: No Symptoms Reported Skin: Reports: No Symptoms Reported Endocrine: Reports: No Symptoms Reported Misc: All systems neg except as marked - Vitals Vitals: Last Vital Signs Temp 36.9 C 03/23/17 06:07 Pulse 90 03/23/17 06:19 Resp 18 03/23/17 06:19 BP 129/59 03/23/17 06:07 Pulse Ox 97 03/23/17 06:10 - Abnormal Lab Findings Abnormal Lab Findings: Abnormal Lab Results 03/23/17 03/23/17 Range/Units 04:21 05:00 WBC 23.6 H D (4.0-10.5) K/mm3 MPV 12.1 H (6.0-9.5) fl Neutrophils % (Manual) 93 H (42-75) % Lymphocytes % (Manual) 5 L (20-51) % Neutrophils # (Manual) 21.9 H (1.3-6.0) K/mm3 Lymphocytes # (Manual) 1.2 L (1.5-3.5) k/mm3 Sodium 131 L (132-142) mmol/L Chloride 94 L (97-106) mmol/L BUN 31 H D (3-23) mg/dL Est GFR (Non-Af Amer) 44 L (60-130) mL/min BUN/Creatinine Ratio 25.0 H (9.0-21.6) Random Glucose 140 H (70-110) mg/dL - Exam Constitutional: Present: Alert, Cooperative, No distress ENT Exam: Present: hearing grossly normal Neck: Present: full range of motion, supple Breasts: Present: Exam deferred Respiratory: Present: chest non-tender, no accessory muscle use, decreased breath sounds Cardiovascular/Chest: Present: regular rate, rhythm, no chest tenderness, no edema Abdomen: Present: Normal bowel sounds, soft, nontender, nondistended /Rectal: Present: Exam deferred Extremity: Present: non-tender, no calf tenderness, other - decreased pedal cap refill Skin Exam: Present: warm/dry, no cyanosis, cool/dry Assessment/Plan Plan Narrative: COPD exacerbation - solumedrol 60 mg iv q 6 hours - stop 03/23/17 after 2 days - wean to 60 mg iv q 8 hours 03/23/17 - Duoneb tx QID - Incentive spirometer q1 hour while awake - cornet q 2 hours while awake - Cover with abx given hypoxia and comorbidities - Rocephin 1 gm iv q 24 hours - stopped 03/23/17 after 2 days - start Cefepime 2 gm iv q 24 hours - Day #1 (Due to UTI sensitivity) - Azithromycin 500 mg iv q 24 hours - Day #3 - probiotics ordered as well - check labs in the am. - wean off O2 as able - walk with O2 sat monitor to make sure pt can maintain her sats with ambulation Respiratory failure with hypoxia - likely due to COPD exacerbation - see treatment plan above - likely to improve with: - iv steroids, iv abx and duoneb treatments - wean O2 as able Pulm Htn - likely contributing to patient's lower extremity edema. - Lasix 80 mg given iv x1 03/21/17 - weight down 3.1 kg in 24 hours - no additional lasix ordered - lower extremity edema significantly improved lower extremity edema - likely due to pulm htn and suspected diastolic dysfunction, which is unable to be fully assessed due to chest abnormality - lasix 80 mg iv given x1 03/21/17 - KCl 40 mEq PO x1 03/21/17 - bilat lexi hose - strict I&Os - daily weights - CHF teaching - will need to weigh self daily at home and monitor weight at home. - check labs in the am Diastolic dysfunction, suspected - see above UTI - urine culture final - grew pseudomonas - Rocephin 1 gm iv q 24 hours - stopped 03/23/17 after 2 days due to indeterminate sensitivity - start cefepime 2 gm iv q 24 hours 03/23/17 - Day #1 - wbc: 4.0 -->23.0 (03/22/17 -->03/23/17) - neutrophils: 73.5 --> 83.6 --> 93 (03/21/17 --> 03/22/17 -->03/23/17) weakness - PT/OT ordered - ensure/boost supplements ordered TID leg cramps - Ca2+ 500 mg QID start 03/22/17 - Mg2+ oxide 400 mg daily start 03/22/17 - aqua K pad as needed for comfort hyperglycemia - likely due to IV steroids - monitor for now - if continues to climb above 200, will need to order sliding scale insulin HTN, chronic - cont home meds hypothyroidism, stable - cont home meds - recent tsh check outpatient wnl. Code status: full code VTE: lovenox / knee high lexi hose GI proph: protonix po. - Problems/Diagnosis (1) Acute exacerbation of chronic obstructive pulmonary disease (COPD) Problem: Acute (2) Acute respiratory failure with hypoxia Problem: Acute (3) Pulmonary HTN Problem: Acute (4) Lower extremity edema Problem: Acute (5) Diastolic dysfunction Problem: Suspected (6) UTI (urinary tract infection) Problem: Acute QualifierTitle: Urinary tract infection type: acute cystitis Hematuria presence: without hematuria Qualified Code(s): N30.00 - Acute cystitis without hematuria (7) Aortic heart murmur Problem: Chronic (8) HTN (hypertension) Problem: Chronic QualifierTitle: Hypertension type: essential hypertension Qualified Code( s): I10 - Essential (primary) hypertension (9) Hypothyroidism Problem: Chronic QualifierTitle: Hypothyroidism type: acquired Qualified Code(s): E03.9 - Hypothyroidism, unspecified (10) Weakness generalized Problem: Acute (11) Bilateral leg cramps Problem: Acute (12) Hyperglycemia Problem: Acute <Jignesh Barragan - Last Filed: 03/23/17 16:39> Subjective Subjective Narrative: In fact, no pain or cramps in her legs at all since starting minerals yesterday. Not very happy about 10 days of IV antibiotics for her Pseudomonas UTI, but she understands the situation, and is willing to take a philosophical accepting approach to the issue. Because of her low sodium on labs today, we will libralize her low salt diet. I personally directed all of our nurse practitioner hospitalist's care for this patient. Objective - Vitals Vitals: Last Vital Signs Temp 36.5 C 03/23/17 14:52 Pulse 95 03/23/17 14:52 Resp 16 03/23/17 14:52 BP 110/54 03/23/17 14:52 Pulse Ox 92 03/23/17 14:52 - Abnormal Lab Findings Abnormal Lab Findings: Abnormal Lab Results 03/23/17 03/23/17 Range/Units 04:21 05:00 WBC 23.6 H D (4.0-10.5) K/mm3 MPV 12.1 H (6.0-9.5) fl Neutrophils % (Manual) 93 H (42-75) % Lymphocytes % (Manual) 5 L (20-51) % Neutrophils # (Manual) 21.9 H (1.3-6.0) K/mm3 Lymphocytes # (Manual) 1.2 L (1.5-3.5) k/mm3 Sodium 131 L (132-142) mmol/L Chloride 94 L (97-106) mmol/L BUN 31 H D (3-23) mg/dL Est GFR (Non-Af Amer) 44 L (60-130) mL/min BUN/Creatinine Ratio 25.0 H (9.0-21.6) Random Glucose 140 H (70-110) mg/dL Assessment/Plan - Problems/Diagnosis (1) Hyponatremia Problem: Acute
[2017-03-23] MEDS: ENOXAPARIN SODIUM 40 MG/0.4 ML SYRG SC SCH (15:39)
[2017-03-23] MEDS: AZITHROMYCIN 500 MG in DEXTROSE 5 % IN WATER 250 ML IV SCH ×2 (16:43)
[2017-03-24] MEDS: METHYLPREDNISOLONE SOD SUCC 60 MG in WATER FOR INJ.,BACTERIOSTATIC 0 ML IV SCH ×3 (03:34→19:13)
[2017-03-24 05:37] LABS: Hematocrit 36.9 % (37.0-47.0); Hemoglobin 12.4 gm/dL (12.5-16.0); Mean Cell Volume 87.4 fl (78-100); Mean Corpuscular Hemoglobin 29.4 pg (27-31); Mean Corpuscular Hgb Conc 33.6 g/dl (32-36); Mean Platelet Volume 11.8 fl (6.0-9.5); Neutrophil # 18.2 K/mm3 (1.3-6.0); Neutrophil % 94.6 % (42-75.0); Platelet Count 169 K/mm3 (150-450); Red Blood Count 4.22 M/mm3 (4.2-5.4); Red Cell Distribution Width 13.8 % (11.5-14.0); White Blood Count 19.2 K/mm3 (4.0-10.5)
[2017-03-24 05:57] LABS: Anion Gap 12.6 mmol/L (6.8-13.8); BUN/Creatinine Ratio 30.9 (9.0-21.6); Calcium * 8.5 mg/dL (7.9-10.9); Carbon Dioxide 28.3 mmol/L (24-32.6); Estimated Creat Clear 26.9; Potassium 4.9 mmol/L (3.4-4.6)
[2017-03-24] MEDS: ALBUTEROL SULFATE/IPRATROPIUM 3 ML NEBU IH SCH ×4 (06:04→18:51)
[2017-03-24] MEDS: PANTOPRAZOLE SODIUM 40 MG TABLET.EC PO SCH (06:22)
[2017-03-24] MEDS: LEVOTHYROXINE SODIUM 50 MCG TABLET PO SCH (06:22)
[2017-03-24] MEDS: CEFEPIME HCL 2 GM in DEXTROSE 5 % IN WATER 100 ML IV SCH ×2 (08:46)
[2017-03-24] MEDS: NIFEdipine 30 MG TAB.SR.24H PO SCH (08:48)
[2017-03-24] MEDS: SACCHAROMYCES BOULARDII 250 MG CAPSULE PO SCH ×2 (08:48→21:27)
[2017-03-24] MEDS: MAGNESIUM OXIDE 400 MG TABLET PO SCH (08:48)
[2017-03-24] MEDS: ROSUVASTATIN CALCIUM 10 MG TABLET PO SCH (08:58)
[2017-03-24] MEDS ORDERED: FUROSEMIDE 10 MG/ML VIAL IV ONE (12:29)
--- NOTE | 2017-03-24 12:41 | PN ---
<Dee Rush - Last Filed: 03/24/17 12:42> Subjective - Date and Time Seen Date: 03/24/17 Time: 08:10 Subjective Narrative: feeling better. bored. gets weak when walking. Objective - Review of Systems Generalized/Overall Review: Reports: Weakness, Fatigue EENTM: Reports: No Symptoms Reported Respiratory: Reports: Shortness of Breath Cardiac: Reports: No Symptoms Reported Abdominal: Reports: No Symptoms Reported Genitourinary Symptoms: Reports: No Symptoms Reported Musculoskeletal Complaints: Reports: No Symptoms Reported Neurological: Reports: No Symptoms Reported Skin: Reports: No Symptoms Reported Endocrine: Reports: No Symptoms Reported Misc: All systems neg except as marked - Vitals Vitals: Last Vital Signs Temp 36.4 C L 03/24/17 09:52 Pulse 84 03/24/17 10:25 Resp 18 03/24/17 10:25 BP 137/66 03/24/17 09:52 Pulse Ox 91 03/24/17 10:25 - Abnormal Lab Findings Abnormal Lab Findings: Abnormal Lab Results 03/24/17 03/24/17 Range/Units 05:05 05:05 WBC 19.2 H (4.0-10.5) K/mm3 Hgb 12.4 L (12.5-16.0) gm/dL Hct 36.9 L (37.0-47.0) % MPV 11.8 H (6.0-9.5) fl Immature Gran % (Auto) 0.50 H (0.001-0.429) % Immature Gran # (Auto) 0.10 H (0.000-0.0310) K/mm3 Neutrophils % 94.6 H (42-75.0) % Lymphocytes % 2.8 L (20-51) % Neutrophils # 18.2 H (1.3-6.0) K/mm3 Lymphocytes # 0.5 L (1.5-3.5) k/mm3 Sodium 127 L (132-142) mmol/L Plasma Sodium 127 L (130-142) mmol/L Potassium 4.9 H (3.4-4.6) mmol/L Chloride 91 L (97-106) mmol/L BUN 38 H (3-23) mg/dL Est GFR (Non-Af Amer) 44 L (60-130) mL/min BUN/Creatinine Ratio 30.9 H (9.0-21.6) Random Glucose 119 H (70-110) mg/dL - Exam Constitutional: Present: Alert, Cooperative, No distress ENT Exam: Present: hearing grossly normal Neck: Present: full range of motion, supple Breasts: Present: Exam deferred Respiratory: Present: no respiratory distress, decreased breath sounds Cardiovascular/Chest: Present: regular rate, rhythm, no chest tenderness, edema - +1 lower extremity edema bilat Abdomen: Present: soft, nontender, nondistended /Rectal: Present: Exam deferred Extremity: Present: non-tender, no calf tenderness Skin Exam: Present: warm/dry, no cyanosis, cool/dry Assessment/Plan Plan Narrative: COPD exacerbation - solumedrol 60 mg iv q 6 hours - stop 03/23/17 after 2 days - currently 60 mg iv q 8 hours - started 03/23/17 - Duoneb tx QID - Incentive spirometer q1 hour while awake - cornet q 2 hours while awake - Cover with abx given hypoxia and comorbidities - Rocephin 1 gm iv q 24 hours - stopped 03/23/17 after 2 days - start Cefepime 2 gm iv q 24 hours - Day #2 (Due to UTI sensitivity) - Azithromycin 500 mg iv q 24 hours - Day #4 - probiotics ordered as well - check labs in the am. - wean off O2 as able - walk with O2 sat monitor to make sure pt can maintain her sats with ambulation - increased need for O2 with ambulation - likely from fluid overload as weight is up 2 kg in 48 hours - lasix 40 mg iv x1 today 03/24/17 Respiratory failure with hypoxia - likely due to COPD exacerbation - see treatment plan above - likely to improve with: - iv steroids, iv abx and duoneb treatments - wean O2 as able Pulm Htn - likely contributing to patient's lower extremity edema. - Lasix 80 mg given iv x1 03/21/17 - weight down 3.1 kg in 24 hours - lower extremity edema significantly improved - weight up 2 kg from 03/22/17 to 03/24/17 - lasix 40 mg iv x1 given 03/24/17 - strict I&Os, daily weights lower extremity edema - likely due to pulm htn and suspected diastolic dysfunction, which is unable to be fully assessed due to chest abnormality - lasix 80 mg iv given x1 03/21/17 - KCl 40 mEq PO x1 03/21/17 - lasix 40 mg iv given x1 03/24/17 - bilat lexi hose - strict I&Os - daily weights - CHF teaching - will need to weigh self daily at home and monitor weight at home. - check labs in the am Diastolic dysfunction, suspected - see above UTI - urine culture final - grew pseudomonas - Rocephin 1 gm iv q 24 hours - stopped 03/23/17 after 2 days due to indeterminate sensitivity - started cefepime 2 gm iv q 24 hours 03/23/17 - Day #2 - wbc: 23.6 -->19.2 (03/23/17 -->03/24/17) weakness - PT/OT ordered - ensure/boost supplements ordered TID leg cramps - Ca2+ 500 mg QID start 03/22/17 - Mg2+ oxide 400 mg daily start 03/22/17 - aqua K pad as needed for comfort hyperglycemia - likely due to IV steroids - monitor for now - if continues to climb above 200, will need to order sliding scale insulin HTN, chronic - cont home meds hypothyroidism, stable - cont home meds - recent tsh check outpatient wnl. Code status: full code VTE: lovenox / knee high lexi hose GI proph: protonix po. - Problems/Diagnosis (1) Acute exacerbation of chronic obstructive pulmonary disease (COPD) Problem: Acute (2) Acute respiratory failure with hypoxia Problem: Acute (3) Pulmonary HTN Problem: Acute (4) Lower extremity edema Problem: Acute (5) Diastolic dysfunction Problem: Suspected (6) UTI (urinary tract infection) Problem: Acute QualifierTitle: Urinary tract infection type: acute cystitis Hematuria presence: without hematuria Qualified Code(s): N30.00 - Acute cystitis without hematuria (7) Aortic heart murmur Problem: Chronic (8) HTN (hypertension) Problem: Chronic QualifierTitle: Hypertension type: essential hypertension Qualified Code( s): I10 - Essential (primary) hypertension (9) Hypothyroidism Problem: Chronic QualifierTitle: Hypothyroidism type: acquired Qualified Code(s): E03.9 - Hypothyroidism, unspecified (10) Weakness generalized Problem: Acute (11) Bilateral leg cramps Problem: Acute (12) Hyperglycemia Problem: Acute <Jignesh Barragan - Last Filed: 03/24/17 13:26> Subjective Subjective Narrative: Legs don't hurt, sob and cough are better, bladder symptoms are better, arms are weak. WBC count is slightly lower, but neutrophil percentage is slightly higher. Tailbone is slightly bruised, non tender, non painfule, cause is unknown. Objective - Vitals Vitals: Last Vital Signs Temp 36.4 C L 03/24/17 09:52 Pulse 84 03/24/17 10:25 Resp 18 03/24/17 10:25 BP 137/66 03/24/17 09:52 Pulse Ox 91 03/24/17 10:25 - Abnormal Lab Findings Abnormal Lab Findings: Abnormal Lab Results 03/24/17 03/24/17 Range/Units 05:05 05:05 WBC 19.2 H (4.0-10.5) K/mm3 Hgb 12.4 L (12.5-16.0) gm/dL Hct 36.9 L (37.0-47.0) % MPV 11.8 H (6.0-9.5) fl Immature Gran % (Auto) 0.50 H (0.001-0.429) % Immature Gran # (Auto) 0.10 H (0.000-0.0310) K/mm3 Neutrophils % 94.6 H (42-75.0) % Lymphocytes % 2.8 L (20-51) % Neutrophils # 18.2 H (1.3-6.0) K/mm3 Lymphocytes # 0.5 L (1.5-3.5) k/mm3 Sodium 127 L (132-142) mmol/L Plasma Sodium 127 L (130-142) mmol/L Potassium 4.9 H (3.4-4.6) mmol/L Chloride 91 L (97-106) mmol/L BUN 38 H (3-23) mg/dL Est GFR (Non-Af Amer) 44 L (60-130) mL/min BUN/Creatinine Ratio 30.9 H (9.0-21.6) Random Glucose 119 H (70-110) mg/dL Assessment/Plan - Problems/Diagnosis (1) Hyponatremia Problem: Acute
[2017-03-24] MEDS: ENOXAPARIN SODIUM 40 MG/0.4 ML SYRG SC SCH (17:08)
[2017-03-24] MEDS: AZITHROMYCIN 500 MG in DEXTROSE 5 % IN WATER 250 ML IV SCH ×2 (17:08)
[2017-03-25] MEDS: METHYLPREDNISOLONE SOD SUCC 60 MG in WATER FOR INJ.,BACTERIOSTATIC 0 ML IV SCH ×3 (04:01→19:55)
[2017-03-25 06:00] LABS: Hematocrit 36.8 % (37.0-47.0); Hemoglobin 12.5 gm/dL (12.5-16.0); Mean Cell Volume 90.2 fl (78-100); Mean Corpuscular Hemoglobin 30.6 pg (27-31); Platelet Count 236 K/mm3 (150-450); Red Blood Count 4.08 M/mm3 (4.2-5.4); Red Cell Distribution Width 13.7 % (11.5-14.0); White Blood Count 12.4 K/mm3 (4.0-10.5)
[2017-03-25] MEDS: ALBUTEROL SULFATE/IPRATROPIUM 3 ML NEBU IH SCH ×4 (06:10→18:23)
[2017-03-25 06:12] LABS: Total Cells Counted 100
[2017-03-25 06:14] LABS: Anion Gap 10.7 mmol/L (6.8-13.8); BUN/Creatinine Ratio 28.5 (9.0-21.6); Calcium * 8.6 mg/dL (7.9-10.9); Carbon Dioxide 30.3 mmol/L (24-32.6); Estimated Creat Clear 26.9
[2017-03-25 06:59] LABS: Lymphocyte 11 % (20-51); Monocyte 4 % (0-9); Neutrophil 85 % (42-75); Neutrophil # 10.5 K/mm3 (1.3-6.0); Platelet Estimate Normal (NORMAL)
[2017-03-25 07:00] LABS: RBC Morphology Normal (NORMAL)
[2017-03-25] MEDS: PANTOPRAZOLE SODIUM 40 MG TABLET.EC PO SCH (07:03)
[2017-03-25] MEDS: LEVOTHYROXINE SODIUM 50 MCG TABLET PO SCH (07:03)
[2017-03-25] MEDS: CEFEPIME HCL 2 GM in DEXTROSE 5 % IN WATER 100 ML IV SCH ×2 (07:03)
[2017-03-25] MEDS: NIFEdipine 30 MG TAB.SR.24H PO SCH (09:14)
[2017-03-25] MEDS: ROSUVASTATIN CALCIUM 10 MG TABLET PO SCH (09:14)
[2017-03-25] MEDS: MAGNESIUM OXIDE 400 MG TABLET PO SCH (09:14)
[2017-03-25] MEDS: SACCHAROMYCES BOULARDII 250 MG CAPSULE PO SCH ×2 (09:14→20:27)
[2017-03-25] MEDS ORDERED: FUROSEMIDE 10 MG/ML VIAL IV ONE (14:19)
--- NOTE | 2017-03-25 14:21 | PN ---
<Dee Rush - Last Filed: 03/25/17 14:40> Subjective - Date and Time Seen Date: 03/25/17 Time: 08:05 Subjective Narrative: c/o sinus headache. feels better when walking. Objective - Review of Systems Generalized/Overall Review: Reports: Fatigue EENTM: Reports: No Symptoms Reported Respiratory: Reports: Shortness of Breath Cardiac: Reports: No Symptoms Reported Abdominal: Reports: No Symptoms Reported Genitourinary Symptoms: Reports: No Symptoms Reported Musculoskeletal Complaints: Reports: No Symptoms Reported Neurological: Reports: Headache Skin: Reports: No Symptoms Reported Endocrine: Reports: No Symptoms Reported Misc: All systems neg except as marked - Vitals Vitals: Last Vital Signs Temp 36.8 C 03/25/17 11:17 Pulse 88 03/25/17 11:17 Resp 18 03/25/17 11:17 BP 134/76 03/25/17 11:17 Pulse Ox 91 03/25/17 11:17 - Abnormal Lab Findings Abnormal Lab Findings: Abnormal Lab Results 03/25/17 03/25/17 Range/Units 05:55 05:55 WBC 12.4 H D (4.0-10.5) K/mm3 RBC 4.08 L (4.2-5.4) M/mm3 Hct 36.8 L (37.0-47.0) % Neutrophils % (Manual) 85 H (42-75) % Lymphocytes % (Manual) 11 L (20-51) % Neutrophils # (Manual) 10.5 H (1.3-6.0) K/mm3 Lymphocytes # (Manual) 1.4 L (1.5-3.5) k/mm3 Sodium 130 L (132-142) mmol/L Potassium 5.0 H (3.4-4.6) mmol/L Chloride 94 L (97-106) mmol/L BUN 35 H (3-23) mg/dL Est GFR (Non-Af Amer) 44 L (60-130) mL/min BUN/Creatinine Ratio 28.5 H (9.0-21.6) - Exam Constitutional: Present: Alert, Cooperative, No distress ENT Exam: Present: hearing grossly normal Neck: Present: full range of motion, supple Breasts: Present: Exam deferred Respiratory: Present: lungs clear, normal breath sounds Cardiovascular/Chest: Present: normal peripheral pulses, regular rate, rhythm, no chest tenderness Abdomen: Present: soft, nontender, nondistended /Rectal: Present: Exam deferred Extremity: Present: non-tender, lower extremity edema - +1 lower extremity edema bilat Skin Exam: Present: warm/dry, no cyanosis, cool/dry Assessment/Plan Plan Narrative: COPD exacerbation - solumedrol 60 mg iv q 6 hours - stop 03/23/17 after 2 days - currently 60 mg iv q 8 hours - started 03/23/17 - Duoneb tx QID - Incentive spirometer q1 hour while awake - cornet q 2 hours while awake - Cover with abx given hypoxia and comorbidities - Rocephin 1 gm iv q 24 hours - stopped 03/23/17 after 2 days - start Cefepime 2 gm iv q 24 hours - Day #3 (Due to UTI sensitivity) - Azithromycin 500 mg iv q 24 hours - Day #5 - done as of Day #5 - probiotics ordered as well - check labs in the am. - wean off O2 as able - walk with O2 sat monitor to make sure pt can maintain her sats with ambulation - increased need for O2 with ambulation - likely from fluid overload as weight is up 2 kg in 48 hours - lasix 40 mg iv x1 today 03/24/17 - weight down 1 kg - lasix 40 mg iv x1 today 03/25/17 Respiratory failure with hypoxia - likely due to COPD exacerbation - see treatment plan above - likely to improve with: - iv steroids, iv abx and duoneb treatments - wean O2 as able Pulm Htn - likely contributing to patient's lower extremity edema. - Lasix 80 mg given iv x1 03/21/17 - weight down 3.1 kg in 24 hours - lower extremity edema significantly improved - weight up 2 kg from 03/22/17 to 03/24/17 - lasix 40 mg iv x1 given 03/24/17 - weight down 1 kg in 24 hours - lasix 40 mg iv x1 given 03/25/17 - strict I&Os, daily weights lower extremity edema - likely due to pulm htn and suspected diastolic dysfunction, which is unable to be fully assessed due to chest abnormality - lasix 80 mg iv given x1 03/21/17 - KCl 40 mEq PO x1 03/21/17 - lasix 40 mg iv given x1 03/24/17 - lasix 40 mg iv given x1 03/25/17 - bilat lexi hose - strict I&Os - daily weights - CHF teaching - will need to weigh self daily at home and monitor weight at home. - check labs in the am Diastolic dysfunction, suspected - see above UTI - urine culture final - grew pseudomonas - Rocephin 1 gm iv q 24 hours - stopped 03/23/17 after 2 days due to indeterminate sensitivity - started cefepime 2 gm iv q 24 hours 03/23/17 - Day #2 - wbc: 19.2-->12.4 (03/24/17 -->03/25/17) weakness - PT/OT ordered - ensure/boost supplements ordered TID leg cramps - Ca2+ 500 mg QID start 03/22/17 - Mg2+ oxide 400 mg daily start 03/22/17 - aqua K pad as needed for comfort hyperglycemia - likely due to IV steroids - monitor for now - if continues to climb above 200, will need to order sliding scale insulin HTN, chronic - cont home meds hypothyroidism, stable - cont home meds - recent tsh check outpatient wnl. Code status: full code VTE: lovenox / knee high lexi hose GI proph: protonix po. - Problems/Diagnosis (1) Acute exacerbation of chronic obstructive pulmonary disease (COPD) Problem: Acute (2) Acute respiratory failure with hypoxia Problem: Acute (3) Pulmonary HTN Problem: Acute (4) Lower extremity edema Problem: Acute (5) Diastolic dysfunction Problem: Suspected (6) UTI (urinary tract infection) Problem: Acute QualifierTitle: Urinary tract infection type: acute cystitis Hematuria presence: without hematuria Qualified Code(s): N30.00 - Acute cystitis without hematuria (7) Aortic heart murmur Problem: Chronic (8) HTN (hypertension) Problem: Chronic QualifierTitle: Hypertension type: essential hypertension Qualified Code( s): I10 - Essential (primary) hypertension (9) Hypothyroidism Problem: Chronic QualifierTitle: Hypothyroidism type: acquired Qualified Code(s): E03.9 - Hypothyroidism, unspecified (10) Weakness generalized Problem: Acute (11) Bilateral leg cramps Problem: Acute (12) Hyperglycemia Problem: Acute <Jignesh Barragan - Last Filed: 03/25/17 20:32> Subjective Subjective Narrative: Slow improvement. BMI is 16. Malnutrition, severe. Sodium better. Potassium on the high side. We will follow labs and continue with antibiotics. I directly supervised our nurse practitioner hospitalist's care for this patient. Objective - Vitals Vitals: Last Vital Signs Temp 36.5 C 03/25/17 18:47 Pulse 96 03/25/17 18:47 Resp 18 03/25/17 18:47 BP 129/53 03/25/17 18:47 Pulse Ox 96 03/25/17 18:47 - Abnormal Lab Findings Abnormal Lab Findings: Abnormal Lab Results 03/25/17 03/25/17 Range/Units 05:55 05:55 WBC 12.4 H D (4.0-10.5) K/mm3 RBC 4.08 L (4.2-5.4) M/mm3 Hct 36.8 L (37.0-47.0) % Neutrophils % (Manual) 85 H (42-75) % Lymphocytes % (Manual) 11 L (20-51) % Neutrophils # (Manual) 10.5 H (1.3-6.0) K/mm3 Lymphocytes # (Manual) 1.4 L (1.5-3.5) k/mm3 Sodium 130 L (132-142) mmol/L Potassium 5.0 H (3.4-4.6) mmol/L Chloride 94 L (97-106) mmol/L BUN 35 H (3-23) mg/dL Est GFR (Non-Af Amer) 44 L (60-130) mL/min BUN/Creatinine Ratio 28.5 H (9.0-21.6) Assessment/Plan - Problems/Diagnosis (1) Hyponatremia Problem: Acute
[2017-03-25] MEDS: ENOXAPARIN SODIUM 40 MG/0.4 ML SYRG SC SCH (14:46)
[2017-03-25] MEDS: FLUTICASONE PROPIONATE 120 SPRAY INHALER NS SCH (14:46)
[2017-03-25] MEDS: AZITHROMYCIN 500 MG in DEXTROSE 5 % IN WATER 250 ML IV SCH ×2 (16:57)
[2017-03-26] MEDS: METHYLPREDNISOLONE SOD SUCC 60 MG in WATER FOR INJ.,BACTERIOSTATIC 0 ML IV SCH ×2 (04:30→11:53)
[2017-03-26] MEDS: ALBUTEROL SULFATE/IPRATROPIUM 3 ML NEBU IH SCH ×4 (06:06→20:29)
[2017-03-26 06:15] LABS: Anion Gap 8.9 mmol/L (6.8-13.8); BUN/Creatinine Ratio 27.8 (9.0-21.6); Calcium * 8.8 mg/dL (7.9-10.9); Carbon Dioxide 32.1 mmol/L (24-32.6); Estimated Creat Clear 28.8
[2017-03-26 06:37] LABS: Hemoglobin 12.7 gm/dL (12.5-16.0); Mean Corpuscular Hemoglobin 30.1 pg (27-31); Mean Corpuscular Hgb Conc 33.4 g/dl (32-36); Platelet Count 238 K/mm3 (150-450); Red Blood Count 4.22 M/mm3 (4.2-5.4); Red Cell Distribution Width 13.7 % (11.5-14.0); White Blood Count 9.9 K/mm3 (4.0-10.5)
[2017-03-26] MEDS: PANTOPRAZOLE SODIUM 40 MG TABLET.EC PO SCH (06:38)
[2017-03-26] MEDS: LEVOTHYROXINE SODIUM 50 MCG TABLET PO SCH (06:39)
[2017-03-26 06:53] LABS: Total Cells Counted 100
[2017-03-26 07:12] LABS: Band 2 % (0-2.0); Lymphocyte 14 % (20-51); Monocyte 1 % (0-9); Neutrophil 83 % (42-75); Neutrophil # 8.2 K/mm3 (1.3-6.0); Platelet Estimate Normal (NORMAL); RBC Morphology Normal (NORMAL)
[2017-03-26] MEDS: CEFEPIME HCL 2 GM in DEXTROSE 5 % IN WATER 100 ML IV SCH ×2 (07:23)
[2017-03-26] MEDS: FLUTICASONE PROPIONATE 120 SPRAY INHALER NS SCH (09:13)
[2017-03-26] MEDS: SODIUM CHLORIDE 1 GM TABLET PO SCH ×3 (09:14→16:17)
[2017-03-26] MEDS: SACCHAROMYCES BOULARDII 250 MG CAPSULE PO SCH ×2 (09:14→20:32)
[2017-03-26] MEDS: ROSUVASTATIN CALCIUM 10 MG TABLET PO SCH (09:14)
[2017-03-26] MEDS: MAGNESIUM OXIDE 400 MG TABLET PO SCH (09:14)
[2017-03-26] MEDS: NIFEdipine 30 MG TAB.SR.24H PO SCH (09:14)
--- NOTE | 2017-03-26 13:00 | PN ---
Subjective - Date and Time Seen Date: 03/26/17 Time: 07:00 Subjective Narrative: Slow improvement. BMI is 16. Malnutrition, severe. Sodium better, but low. Potassium on the high side. We will follow labs and continue with antibiotics. I directly supervised our nurse practitioner hospitalist's care for this patient. Will add sodium tablets po. Plan is full 10 days of IV antibiotics. C /O hand weakness and stiffness, trouble grasping due to arthritis. PT OT also thinks, at least for a while, she might benefit at home from a simple two wheeled walker. Objective - Review of Systems Generalized/Overall Review: Reports: Weakness EENTM: Reports: No Symptoms Reported Respiratory: Reports: Shortness of Breath Cardiac: Reports: No Symptoms Reported Abdominal: Reports: No Symptoms Reported Genitourinary Symptoms: Reports: Hesitancy Musculoskeletal Complaints: Reports: Joint Pain Neurological: Reports: Weakness, Pre-existing Deficit Skin: Reports: No Symptoms Reported Endocrine: Reports: No Symptoms Reported Misc: All systems neg except as marked - Vitals Vitals: Last Vital Signs Selected Entries 03/26/17 03/26/17 03:15 06:16 Temperature 37.2 C Temperature Temporal Artery Source Scan Pulse Rate 89 84 Pulse Rhythm Regular Respiratory 18 20 Rate Respiratory Normal Depth Respiratory Normal Effort Non-Labored Blood Pressure 110/55 Blood Pressure Supine Position O2 Sat by Pulse 91 Oximetry Oxygen Delivery Room Air Room Air Method - Abnormal Lab Findings Abnormal Lab Findings: Abnormal Lab Results 03/26/17 03/26/17 Range/Units 06:01 06:01 Neutrophils % (Manual) 83 H (42-75) % Lymphocytes % (Manual) 14 L (20-51) % Neutrophils # (Manual) 8.2 H (1.3-6.0) K/mm3 Lymphocytes # (Manual) 1.4 L (1.5-3.5) k/mm3 Sodium 130 L (132-142) mmol/L Potassium 5.0 H (3.4-4.6) mmol/L Chloride 94 L (97-106) mmol/L BUN 32 H (3-23) mg/dL Est GFR (Non-Af Amer) 48 L (60-130) mL/min BUN/Creatinine Ratio 27.8 H (9.0-21.6) - Exam Constitutional: Present: Alert, Oriented x3, Cooperative, Well developed, No distress, Elderly, Thin and frail ENT Exam: Present: normal ENT inspection, hearing grossly normal Neck: Present: normal inspection Respiratory: Present: lungs clear, decreased breath sounds Cardiovascular/Chest: Present: regular rate, rhythm, no edema Abdomen: Present: Normal bowel sounds, soft, nontender, nondistended, no rebound tenderness, no hepatospenomegaly, no masses Extremity: Present: non-tender, no pedal edema Skin Exam: Present: no cyanosis, cool/dry Neurologic: Present: alert, oriented x 3 Appearance: Present: appropriate appearance, neat Eye contact: Present: cooperative, good eye contact, normal speech Thoughts: Present: normal thought pattern Assessment/Plan - Problems/Diagnosis (1) Hyponatremia Problem: Acute (2) Acute exacerbation of chronic obstructive pulmonary disease (COPD) Problem: Acute (3) Bilateral leg cramps Problem: Acute (4) Pulmonary HTN Problem: Chronic (5) UTI (urinary tract infection) Problem: Acute Qualifiers: Urinary tract infection type: acute cystitis Hematuria presence: without hematuria Qualified Code(s): N30.00 - Acute cystitis without hematuria (6) Weakness generalized Problem: Acute (7) HTN (hypertension) Problem: Chronic Qualifiers: Hypertension type: essential hypertension Qualified Code(s): I10 - Essential (primary) hypertension (8) Hypothyroidism Problem: Chronic Qualifiers: Hypothyroidism type: acquired Qualified Code(s): E03.9 - Hypothyroidism, unspecified (9) Diastolic dysfunction Problem: Suspected (10) Acute respiratory failure with hypoxia Problem: Acute (11) 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
[2017-03-26] MEDS: ENOXAPARIN SODIUM 40 MG/0.4 ML SYRG SC SCH (14:37)
[2017-03-27 06:05] LABS: Anion Gap 8.3 mmol/L (6.8-13.8); BUN/Creatinine Ratio 27.9 (9.0-21.6); Calcium * 8.7 mg/dL (7.9-10.9); Carbon Dioxide 31.6 mmol/L (24-32.6); Estimated Creat Clear 31.8; Potassium 4.9 mmol/L (3.4-4.6)
[2017-03-27] MEDS: ALBUTEROL SULFATE/IPRATROPIUM 3 ML NEBU IH SCH ×3 (06:14→14:20)
[2017-03-27] MEDS: PANTOPRAZOLE SODIUM 40 MG TABLET.EC PO SCH (06:26)
[2017-03-27] MEDS: LEVOTHYROXINE SODIUM 50 MCG TABLET PO SCH (06:27)
[2017-03-27] MEDS ORDERED: DIMETHICONE APPL TP PRN (08:36)
[2017-03-27] MEDS ORDERED: PSEUDOEPHEDRINE HCL 30 MG TAB PO PRN (08:38)
[2017-03-27] MEDS: SODIUM CHLORIDE 45 SPRAY BTL NS SCH ×7 (08:57→16:13)
[2017-03-27] MEDS: CEFEPIME HCL 2 GM in DEXTROSE 5 % IN WATER 100 ML IV SCH ×2 (08:57)
[2017-03-27] MEDS ORDERED: LORATADINE 10 MG TABLET PO SCH (09:00)
[2017-03-27] MEDS ORDERED: FLUTICASONE PROPIONATE 120 SPRAY INHALER NS SCH (09:00)
[2017-03-27] MEDS: MAGNESIUM OXIDE 400 MG TABLET PO SCH (09:01)
[2017-03-27] MEDS: ROSUVASTATIN CALCIUM 10 MG TABLET PO SCH (09:01)
[2017-03-27] MEDS: SACCHAROMYCES BOULARDII 250 MG CAPSULE PO SCH (09:01)
[2017-03-27] MEDS: NIFEdipine 30 MG TAB.SR.24H PO SCH (09:02)
[2017-03-27] MEDS: SODIUM CHLORIDE 1 GM TABLET PO SCH ×3 (09:02→16:13)
[2017-03-27 10:43] VITALS: BP 120/68
--- NOTE | 2017-03-27 12:50 | DS ---
(1) Hyponatremia Problem: Acute (2) Acute exacerbation of chronic obstructive pulmonary disease (COPD) Problem: Resolved (3) Bilateral leg cramps Problem: Resolved (4) Pulmonary HTN Problem: Chronic (5) UTI (urinary tract infection) Diagnosis(s): Pseudomonas Problem: Acute Qualifiers: Urinary tract infection type: acute cystitis Hematuria presence: without hematuria Qualified Code(s): N30.00 - Acute cystitis without hematuria (6) Weakness generalized Problem: Acute (7) HTN (hypertension) Problem: Chronic Qualifiers: Hypertension type: essential hypertension Qualified Code(s): I10 - Essential (primary) hypertension (8) Hypothyroidism Problem: Chronic Qualifiers: Hypothyroidism type: acquired Qualified Code(s): E03.9 - Hypothyroidism, unspecified (9) Diastolic dysfunction Problem: Suspected (10) Acute respiratory failure with hypoxia Problem: Resolved (11) Body mass index less than 16.5 Diagnosis(s): with severe malnutrition Problem: Chronic (12) Edema extremities Problem: Acute (13) Hyperkalemia Problem: Resolved (14) Osteoarthritis Problem: Chronic Qualifiers: Osteoarthritis location: unspecified site Osteoarthritis type: primary Qualified Code(s): M19.91 - Primary osteoarthritis, unspecified site Description of Stay: Slow improvement with respiratory flare, but Pseudomonas UTI identified. Pseudomonas required particular antibiotic treatment, further defined by patients antibiotic allergies. Is now doing quite well. Supplements given to also address her malnutritions. Prognosis is fair to good. Further treatment will be given in the annex as an outpatient. Electrolyte imbalance was also addressed while hospitalized. Procedures Performed: none Discharge Disposition: Home self care Disposition: Home self-care Condition: Good Discharge Activity: Activity as tolerated Referrals: Ria Schofield MD [Primary Care Provider] - Problem Oriented Discharge Instructions to Patient/Family: Chronic Obstructive Pulmonary Disease Exacerbation, [id number], Urinary Tract Infection, Adult, [id number], Lactose Intolerance, Adult Additional Patient Instructions (free text): TCM appt, please call Mariann at [phone]. IV antibiotics daily in the annex starting tomorrow, through SaturdayApril 01. Follow up with Ria Schofield 1 week. CBC and BMP blood test in 1 week. Eat three snacks daily between meals and at bedtime. Prescriptions (Any new or edited meds): Albuterol Sulfate/Ipratropium [Duoneb 2.5-0.5MG/3ML Soln] 3 ml IH QIDRT #120 dose Budesonide [Pulmicort Respules] 0.5 mg IH BID 30 Days Cefepime HCl [Maxipime] 2 gm IV Q24H #5 vial Dimethicone [Proshield Plus] 1 appl TP Q1H PRN #1 tube PRN Reason: Dry Lips Fluticasone Propionate [Flonase] 2 spray NS BID #1 inhaler Loratadine [Claritin] 10 mg PO DAILY #30 tablet Magnesium Oxide [Mag-Ox 400] 400 mg PO DAILY #30 tablet Pantoprazole Sodium [Protonix] 40 mg PO DAILY@0700 #30 tablet. Pseudoephedrine HCl [Sudafed] 30 mg PO Q6H PRN #120 tab PRN Reason: Congestion Saccharomyces Boulardii [Florastor] 250 mg PO BID #60 capsule Sodium Chloride [Saline Mist] 1 spray NS Q1H #1 btl Sodium Chloride 1 gm PO TID #90 tablet Complete Home Medications List: Complete Home Medication List: Levothyroxine Sodium [Synthroid] 50 mcg PO DAILY 12/11/15 NIFEdipine [Adalat cc] 60 mg PO DAILY 12/11/15 Acetaminophen [Tylenol] 650 mg PO QID PRN #0 tablet 12/16/15 Albuterol Sulfate [Ventolin Hfa] 1 puff IH PRN PRN 03/21/17 Atorvastatin Calcium 10 mg PO DAILY 03/21/17 Polyethylene Glycol 3350 [Miralax] 17 gm PO BID PRN 03/21/17 Albuterol Sulfate/Ipratropium [Duoneb 2.5-0.5MG/3ML Soln] 3 ml IH QIDRT #120 dose 03/27/17 Budesonide [Pulmicort Respules] 0.5 mg IH BID 30 Days 03/27/17 Cefepime HCl [Maxipime] 2 gm IV Q24H #5 vial 03/27/17 Dimethicone [Proshield Plus] 1 appl TP Q1H PRN #1 tube 03/27/17 Fluticasone Propionate [Flonase] 2 spray NS BID #1 inhaler 03/27/17 Loratadine [Claritin] 10 mg PO DAILY #30 tablet 03/27/17 Magnesium Oxide [Mag-Ox 400] 400 mg PO DAILY #30 tablet 03/27/17 Pantoprazole Sodium [Protonix] 40 mg PO DAILY@0700 #30 tablet. 03/27/17 Pseudoephedrine HCl [Sudafed] 30 mg PO Q6H PRN #120 tab 03/27/17 Saccharomyces Boulardii [Florastor] 250 mg PO BID #60 capsule 03/27/17 Sodium Chloride 1 gm PO TID #90 tablet 03/27/17 Sodium Chloride [Saline Mist] 1 spray NS Q1H #1 btl 03/27/17
[2017-03-27] MEDS: ENOXAPARIN SODIUM 40 MG/0.4 ML SYRG SC SCH (16:13)
== END 2017-03-27 18:00 | disposition home or self-care (01) | DRG 189 ==
LOC: ER 09:15 → MS 11:34
PROVIDERS: ADMIT Nurse Practitioner Critical Care Medicine; ATTEND Allergy & Immunology
PROC: 4A033R1 Measurement of Arterial Saturation, Peripheral, Percutaneous Approach (ICD-10-PCS; principal; 2017-03-21)
DX: J96.01 Acute respiratory failure with hypoxia (principal); E43 Unspecified severe protein-calorie malnutrition; J44.1 Chronic obstructive pulmonary disease with (acute) exacerbation; I50.32 Chronic diastolic (congestive) heart failure; N30.00 Acute cystitis without hematuria; E87.1 Hypo-osmolality and hyponatremia; Z68.1 Body mass index [BMI] 19.9 or less, adult; R53.1 Weakness; I27.2 Other secondary pulmonary hypertension; I10 Essential (primary) hypertension; E03.9 Hypothyroidism, unspecified

== ENCOUNTER 2017-09-26 21:11 | Inpatient (IN) | payer MEDICARE, MEDICAID ==
[2017-09-26] MEDS ORDERED: METHYLPREDNISOLONE SOD SUCC/PF 125 MG/2 ML VIAL IV ONE (21:28)
--- NOTE | 2017-09-26 21:28 | ERNOTE ---
Dyspnea - Date Date of Service: 09/26/17 - General Presenting Symptoms: shortness of breath, difficulty of breathing Time Seen by Provider: 09/26/17 21:23 Source: patient, family - Immun/Allergies/Home Medications Immunizations: IMMUNIZATION HX Immunizations Up to Date Yes History of Influenza Vaccine Yes Hx Pneumococcal Vaccination Yes Allergies/Adverse Reactions: Allergies aspirin Allergy (Verified 09/26/17 21:23) ciprofloxacin Allergy (Verified 09/26/17 21:23) codeine Allergy (Verified 09/26/17 21:23) levofloxacin Allergy (Verified 09/26/17 21:23) morphine Allergy (Verified 09/26/17 21:23) Sulfa (Sulfonamide Antibiotics) Allergy (Verified 09/26/17 21:23) amoxicillin trihydrate [From Augmentin] Adverse Reaction (Verified 09/26/17 21: 23) cephalexin Adverse Reaction (Verified 09/26/17 21:23) potassium clavulanate [From Augmentin] Adverse Reaction (Verified 09/26/17 21:23 ) Home Medications: HOME MEDICATIONS Levothyroxine Sodium [Synthroid] 25 mcg PO DAILY 12/11/15 [Last Taken 12/11/15 07:00] NIFEdipine [Adalat cc] 60 mg PO DAILY 12/11/15 [Last Taken 12/11/15 07:00] Albuterol Sulfate [Ventolin Hfa] 1 puff IH PRN PRN 03/21/17 [Last Taken Unknown] Albuterol Sulfate/Ipratropium [Duoneb 2.5-0.5MG/3ML Soln] 3 ml IH QIDRT #120 dose 03/27/17 [Last Taken Unknown] Loratadine [Claritin] 10 mg PO DAILY #30 tablet 03/27/17 [Last Taken Unknown] Magnesium Oxide [Mag-Ox 400] 400 mg PO DAILY #30 tablet 03/27/17 [Last Taken Unknown] Pantoprazole Sodium [Protonix] 40 mg PO DAILY@0700 #30 tablet. 03/27/17 [Last Taken Unknown] Ergocalciferol (Vitamin D2) [Vitamin D2] 50,000 unit PO Q7D 09/26/17 [Last Taken Unknown] Saccharomyces Boulardii [Florastor] 250 mg PO BID 09/26/17 [Last Taken Unknown] Atorvastatin Calcium 10 mg PO DAILY 09/27/17 [Last Taken Unknown] Fluticasone/Salmeterol [Advair 250-50 Diskus] 1 puff IH BID 09/27/17 [Last Taken Unknown] Trolamine Salicylate [Aspercreme] 1 appl TP Q2H PRN 09/27/17 [Last Taken Unknown ] - History of Present Illness Narrative: This is an 87-year-old female who was brought to the emergency department by her granddaughter. She was over at their house eating Thanksgiving dinner today. When she was getting ready to leave the granddaughter noted that the patient was exceptionally short of breath. She had to stop several times when walking less than 20 feet. The patient says that she's actually been like this for several weeks. She does have a history of COPD. She does not have oxygen for home. She has not had any fever. She has not had any coughing. Blood tests done by her family doctor a week ago showed that her thyroid was slightly elevated. The patient has developed some swelling in her legs over the last couple of weeks. She says that she has never been diagnosed with congestive heart failure. She has no other somatic complaints Review of Systems - Review of Systems Constitutional: Present: no symptoms reported EYE: Present: no symptoms reported ENT: Present: no symptoms reported Respiratory: Present: shortness of breath, other Cardiology: Present: no symptoms reported - dyspnea on exertion Gastrointestinal/Abdominal: Present: no symptoms reported Genitourinary: Present: no symptoms reported Musculoskeletal: Present: no symptoms reported Skin: Present: no symptoms reported Neurological: Present: no symptoms reported Endocrine: Present: no symptoms reported Hematologic/Lymphatic: Present: no symptoms reported Psych: Present: no symptoms reported All Other Systems: All systems neg except as marked - Patient's Past Medical History Patient History - Medical: Cataracts, Headache, Hypothyroidism, UTI'S Patient History - Cardiac/Respiratory: Coronary Heart Disease, COPD, Hypertension Patient History - Cancer: No Hx of Cancer Patient History - Surgical Procedures: Hysterectomy Patient History - Other: None - Family History Mother Family History - Medical: , Diabetes Type 2 Insulin Dependent Family History - Cardiac/Respiratory: CHF Family History - Cancer: No pertinent family hx Father Family History - Medical: Family History - Cardiac/Respiratory: CHF Family History - Cancer: No pertinent family hx - Social History Living Situations: home Abuse History: No History of abuse Psych History: No pertinent hx Smoking Status: Former smoker Alcohol Use: none Drug Use: none - Immunizations Immunizations Up to Date: Yes Hx Pneumococcal Vaccination: Yes History of Influenza Vaccine: Yes Physical Exam - Physical Exam General Appearance: Present: wd/wn, alert, other - patient is in mild respiratory distress. Tachypneic. Able to speak in 3 to forward sentences Head Exam: Present: normal inspection, no evidence of injury Eye Exam: Normal inspection: bilateral - arcus senilis bilateral, PERRL: bilateral Ears, Nose, Throat: Present: normal ENT inspection, normal pharynx Neck: Present: normal inspection, nontender Respiratory: Present: normal breath sounds, lungs clear, other - decreased breath sounds throughout Cardiovascular/Chest: Present: regular rate, rhythm, tachycardia, other - patient has a 2/6 systolic murmur in the right upper sternal border radiating to the right neck Gastrointestinal/Abdominal: Present: normal bowel sounds, nontender, nondistended, soft Back Exam: Present: normal inspection - pretibial to the knee, normal range of motion Extremity Exam: Present: non-tender, other - 1+ edema Skin Exam: Present: normal color, warm/dry Lymphatic Exam: Present: no adenopathy ED Progress - Results and Orders Patient's Lab Results:: I have reviewed the patient's lab results. - Vital Signs Patient's Vital Signs:: I have reviewed the patient's vital signs. Vital Signs: Vital Signs 09/26/17 21:17 Temperature 37.1 C Pulse Rate 95 Respiratory 29 H Rate Blood Pressure 166/64 O2 Sat by Pulse 71 L Oximetry - EKG EKG: NSR, other - normal sinus rhythm normal axis normal intervals no acute ST segment changes. Perhaps less than [address] segment depression in 2 and 3 and aVF EKG read: Interp. by me - X-Ray X-Ray #1 X-Ray: chest Interpretation: Interp. by me X-ray Comments: Hyperinflation granulomas - Progress/Reassessment Chief Complaint: Dyspnea Progress:: Improved Departure Clinical Impression: Hypoxemia - Departure Disposition: [facility] Condition: Fair
[2017-09-26] MEDS ORDERED: METHYLPREDNISOLONE SOD SUCC/PF 125 MG/2 ML VIAL ONE (21:38)
[2017-09-26 21:42] LABS: Hemoglobin 13.6 gm/dL (12.5-16.0); Mean Cell Volume 88.9 fl (78-100); Mean Corpuscular Hemoglobin 29.5 pg (27-31); Mean Corpuscular Hgb Conc 33.2 g/dl (32-36); Mean Platelet Volume 11.1 fl (6.0-9.5); Neutrophil % 64.6 % (42-75.0); Platelet Count 253 K/mm3 (150-450); Red Blood Count 4.61 M/mm3 (4.2-5.4); Red Cell Distribution Width 13.9 % (11.5-14.0); White Blood Count 7.8 K/mm3 (4.0-10.5)
[2017-09-26 21:58] LABS: Urine Bilirubin Negative (NEGATIVE); Urine Blood Negative /ul (NEGATIVE); Urine Ketone 5 mg/dL (NEGATIVE); Urine Nitrite Negative (NEGATIVE); Urine Protein Negative (NEGATIVE); Urine Urobilinogen Normal (NORMAL)
[2017-09-26 21:59] LABS: Urine Appearance Cloudy; Urine Color Yellow
[2017-09-26 22:03] LABS: ALT 37 U/L (19-67); AST 41 U/L (0-48); Alkaline Phosphatase * 148 U/L (50-170); Anion Gap 15.2 mmol/L (6.8-13.8); BNP * 2134 pg/mL (5-550); BUN/Creatinine Ratio 17.1 (9.0-21.6); Bilirubin, Total 0.5 mg/dL (0.0-1.1); Blood Urea Nitrogen 19 mg/dL (3-23); Ca. Corrected For Albumin 8.8 mg/dL (8.4-10.2); Calcium * 9.1 mg/dL (7.9-10.9); Carbon Dioxide 25.1 mmol/L (24-32.6); Chloride 95 mmol/L (97-106); Glucose * 109 mg/dL (70-110); Potassium 5.3 mmol/L (3.4-4.6); Sodium 130 mmol/L (132-142); TSH * 9.397 uIU/mL (0.358-3.74); Total Protein 7.8 gm/dL (6.2-8.2); Troponin I Less than 0.017 ng/ml (0.00-0.10)
[2017-09-26 22:06] LABS: Urine Bacteria TRACE; Urine RBC None Seen /hpf (0-5); Urine WBC None Seen /hpf (0-5)
[2017-09-26] MEDS: LEVOFLOXACIN/D5W 500 MG/100 ML BAG IV SCH (23:40)
--- NOTE | 2017-09-27 00:42 | HP ---
Chief Complaint - Chief Complaint Date of Service: 09/26/17 Time of Service: 23:45 Chief Complaint: Dyspnea, BLE edema History of Present Illness: 87 years old female adm to the hospital with reports of dyspnea, BLE pitting edema. PMH significant for COPD (not on home O2, on inhaled steroid chronically) , hypothyroidism, pulm HTN, HTN, recurrent UTI and sinusitis. pt stated she have noticed increased shortness of breath with exertions going on 2-3 weeks, BLE pitting edema that have gotten worst over the past 2-3 days and Orthopnea which forces her to use 3 pillows while sleeping. She denies chest pain, palpitation, cough, fever, chills. per family pt was visiting for the holidays and they noticed she have increased shortness of breath even with sitting. They were concerned and brought her to the hospital. In ER spo2 71% on RA, at 3L it gradually increased to 92%. CXR: No acute cardiopulmonary process. tropo negative. D-Dimer 0.84 and initiated on neb treatments and IV steriods. Plan of care discussed with pt ad family they verbalized understanding and agrees. - Patient's Past Medical History Patient History - Medical: Cataracts, Headache, Hypothyroidism, UTI'S, Other - sinusitis Patient History - Cardiac/Respiratory: Coronary Heart Disease, CHF, COPD, Hypertension Patient History - Cancer: No Hx of Cancer Patient History - Surgical Procedures: Hysterectomy Patient History - Other: None - Family History Mother Family History - Medical: , Diabetes Type 2 Insulin Dependent Family History - Cardiac/Respiratory: CHF Family History - Cancer: No pertinent family hx Father Family History - Medical: Family History - Cardiac/Respiratory: CHF Family History - Cancer: No pertinent family hx - Social History Living Situations: alone Abuse History: No History of abuse Psych History: No pertinent hx Smoking Status: Former smoker Alcohol Use: none Drug Use: none - Immunizations Immunizations Up to Date: Yes Hx Pneumococcal Vaccination: Yes History of Influenza Vaccine: Yes Review Of Systems (GEN) - Review of Systems Generalized/Overall Review: Present: No Symptoms Reported EENTM: Present: No Symptoms Reported Respiratory: Present: Shortness of Breath, Orthopnea Cardiac: Present: Edema Abdominal: Present: No Symptoms Reported Genitourinary: Present: No Symptoms Reported Musculoskeletal: Present: Other - BLLE edema Neurological: Present: No Symptoms Reported Skin: Present: No Symptoms Reported Endocrine: Present: No Symptoms Reported Allergies/Adverse Reactions: Allergies Allergy/AdvReac Type Severity Reaction Status Date / Time aspirin Allergy Verified 09/26/17 21:23 ciprofloxacin Allergy Verified 09/26/17 21:23 codeine Allergy Verified 09/26/17 21:23 levofloxacin Allergy Verified 09/26/17 21:23 morphine Allergy Verified 09/26/17 21:23 Sulfa (Sulfonamide Allergy Verified 09/26/17 21:23 Antibiotics) amoxicillin trihydrate AdvReac Verified 09/26/17 21:23 [From Augmentin] cephalexin AdvReac Verified 09/26/17 21:23 potassium clavulanate AdvReac Verified 09/26/17 21:23 [From Augmentin] Home Medications: HOME MEDICATIONS Levothyroxine Sodium [Synthroid] 25 mcg PO DAILY 12/11/15 [Last Taken 12/11/15 07:00] NIFEdipine [Adalat cc] 60 mg PO DAILY 12/11/15 [Last Taken 12/11/15 07:00] Albuterol Sulfate [Ventolin Hfa] 1 puff IH PRN PRN 03/21/17 [Last Taken Unknown] Albuterol Sulfate/Ipratropium [Duoneb 2.5-0.5MG/3ML Soln] 3 ml IH QIDRT #120 dose 03/27/17 [Last Taken Unknown] Loratadine [Claritin] 10 mg PO DAILY #30 tablet 03/27/17 [Last Taken Unknown] Magnesium Oxide [Mag-Ox 400] 400 mg PO DAILY #30 tablet 03/27/17 [Last Taken Unknown] Pantoprazole Sodium [Protonix] 40 mg PO DAILY@0700 #30 tablet. 03/27/17 [Last Taken Unknown] Ergocalciferol (Vitamin D2) [Vitamin D2] 50,000 unit PO Q7D 09/26/17 [Last Taken Unknown] Saccharomyces Boulardii [Florastor] 250 mg PO BID 09/26/17 [Last Taken Unknown] Atorvastatin Calcium 10 mg PO DAILY 09/27/17 [Last Taken Unknown] Fluticasone/Salmeterol [Advair 250-50 Diskus] 1 puff IH BID 09/27/17 [Last Taken Unknown] Exam - Exam Vital Signs: Vital Signs - Last Taken Temp 37.5 C 09/27/17 00:01 Pulse 107 H 09/27/17 00:01 Resp 28 H 09/27/17 00:01 BP 133/31 09/27/17 00:01 Pulse Ox 93 09/27/17 00:01 Constitutional: Present: Alert, Oriented x3, Cooperative, Well developed ENT Exam: Present: normal ENT inspection, hearing grossly normal Eye Exam: bilateral eye: normal inspection Neck: Present: full range of motion Back Exam: Present: normal inspection Breasts: Present: Exam deferred Respiratory: Present: chest non-tender, normal breath sounds, no respiratory distress, decreased breath sounds Cardiovascular/Chest: Present: normal peripheral pulses, regular rate, rhythm, no chest tenderness, systolic murmur, edema Peripheral Pulses: dorsalis-pedis (R): 2+, dorsalis-pedis (L): 2+ Abdomen: Present: Normal bowel sounds, soft, nontender, nondistended /Rectal: Present: Exam deferred Extremity: Present: normal range of motion, non-tender, lower extremity edema, slow capillary refill Skin Exam: Present: normal color, warm/dry Neurologic: Present: oriented x 3 Appearance: Present: appropriate appearance, appropriate insight Eye contact: Present: cooperative, good eye contact Thoughts: Present: normal thought pattern, no apparent hallucination Diagnostic Studies: Laboratory Results WBC 7.8 K/mm3 (4.0-10.5) 09/26/17 21:34 RBC 4.61 M/mm3 (4.2-5.4) 09/26/17 21:34 Hgb 13.6 gm/dL (12.5-16.0) 09/26/17 21:34 Hct 41.0 % (37.0-47.0) 09/26/17 21:34 MCV 88.9 fl (78-100) 09/26/17 21:34 MCH 29.5 pg (27-31) 09/26/17 21:34 MCHC 33.2 g/dl (32-36) 09/26/17 21:34 RDW 13.9 % (11.5-14.0) 09/26/17 21:34 Plt Count 253 K/mm3 (150-450) 09/26/17 21:34 MPV 11.1 fl (6.0-9.5) H 09/26/17 21:34 Immature Gran % (Auto) 0.40 % (0.001-0.429) 09/26/17 21:34 Immature Gran # (Auto) 0.03 K/mm3 (0.000-0.0310) 09/26/17 21:34 Neutrophils % 64.6 % (42-75.0) 09/26/17 21:34 Lymphocytes % 18.2 % (20-51) L 09/26/17 21:34 Monocytes % 12.9 % (0.0-9) H 09/26/17 21:34 Eosinophils % 2.7 % (0.0-3.0) 09/26/17 21:34 Basophils % 1.2 % (0.0-1.0) H 09/26/17 21:34 Nucleated RBC % 0.0 k/mm3 (0-1) 09/26/17 21:34 Neutrophils # 5.0 K/mm3 (1.3-6.0) 09/26/17 21:34 Lymphocytes # 1.4 k/mm3 (1.5-3.5) L 09/26/17 21:34 Monocytes # 1.0 k/mm3 (0.0-1.0) 09/26/17 21:34 Eosinophils # 0.2 k/mm3 (0.0-0.7) 09/26/17 21:34 Absolute Basophils 0.1 k/mm3 (0.0-0.1) 09/26/17 21:34 pCO2 40.5 mmHg (32.0-45.0) 09/26/17 21:40 pO2 52.4 mmHg (83.0-108.0) L 09/26/17 21:40 HCO3 24.4 mmol/L (21.0-28.0) 09/26/17 21:40 Total CO2 25.7 mmol/L (19.0-24.0) H 09/26/17 21:40 Base Excess -0.4 mmol/L (-2.0-3.0) 09/26/17 21:40 ABG pH 7.40 (7.35-7.45) 09/26/17 21:40 ABG O2 Sat (Measured) 87.1 % (94.0-98.0) L 09/26/17 21:40 Sodium 130 mmol/L (132-142) L 09/26/17 21:34 Plasma Sodium 130 mmol/L (130-142) 09/26/17 21:34 Potassium 5.3 mmol/L (3.4-4.6) H D 09/26/17 21:34 Chloride 95 mmol/L (97-106) L 09/26/17 21:34 Carbon Dioxide 25.1 mmol/L (24-32.6) 09/26/17 21:34 Anion Gap 15.2 mmol/L (6.8-13.8) H 09/26/17 21:34 BUN 19 mg/dL (3-23) D 09/26/17 21:34 Creatinine 1.11 mg/dL (0.4-1.4) 09/26/17 21:34 Est GFR (Non-Af Amer) 50 mL/min (60-130) L D 09/26/17 21:34 BUN/Creatinine Ratio 17.1 (9.0-21.6) 09/26/17 21:34 Random Glucose 109 mg/dL (70-110) 09/26/17 21:34 Calcium 9.1 mg/dL (7.9-10.9) 09/26/17 21:34 Calcium Adj for Albumin 8.8 mg/dL (8.4-10.2) 09/26/17 21:34 Total Bilirubin 0.5 mg/dL (0.0-1.1) 09/26/17 21:34 AST 41 U/L (0-48) 09/26/17 21:34 ALT 37 U/L (19-67) 09/26/17 21:34 Alkaline Phosphatase 148 U/L (50-170) 09/26/17 21:34 Troponin I Less than 0.017 ng/ml (0.00-0.10) 09/26/17 21:34 B-Natriuretic Peptide 2134 pg/mL (5-550) H 09/26/17 21:34 Total Protein 7.8 gm/dL (6.2-8.2) 09/26/17 21:34 Albumin 4.0 gm/dl (3.4-5.0) 09/26/17 21:34 TSH 9.397 uIU/mL (0.358-3.74) H 09/26/17 21:34 Urine Color Yellow 09/26/17 21:51 Urine Appearance Cloudy 09/26/17 21:51 Urine pH 6.0 pH (5.0-7.0) 09/26/17 21:51 Ur Specific Freeman 1.020 SP.GR. (1.005-1.010) 09/26/17 21:51 Urine Protein Negative mg/dL (NEGATIVE) 09/26/17 21:51 Urine Glucose (UA) Negative mg/dL (NEGATIVE) 09/26/17 21:51 Urine Ketones 5 mg/dL (NEGATIVE) 09/26/17 21:51 Urine Blood Negative /ul (NEGATIVE) 09/26/17 21:51 Urine Nitrate Negative (NEGATIVE) 09/26/17 21:51 Urine Bilirubin Negative mg/dl (NEGATIVE) 09/26/17 21:51 Urine Urobilinogen Normal EU/dl (NORMAL) 09/26/17 21:51 Ur Leukocyte Esterase Negative /ul (NEGATIVE) 09/26/17 21:51 Urine RBC None seen /hpf (0-5) 09/26/17 21:51 Urine WBC None seen /hpf (0-5) 09/26/17 21:51 Ur Epithelial Cells 0-5 /hpf (0-5) 09/26/17 21:51 Urine Bacteria Trace (NONE) 09/26/17 21:51 Urine Culture Comments Culture to follow 09/26/17 21:51 Assessment/Plan - Narrative Narrative: Acute on chronic COPD exacerbation pt stated she is having increased SOB with exertion Family stated pt have not been using her maintenance medications as prescribed Continue with Levaquin, duoneb treatment and solumedrol Per ERP CXR: No acute cardiopulmonary process ABG noted and will repeat in the [facility] Supplemented oxygen and plan for oxygen walk before discharge Encourage use of I/S and cornet D- Dimer 0.84 CT chest pending CHF pt stated he BLE edema has gotten worst over the past 2-3 days and uses 3 pillows to sleep 01/15/17 Echo:showed normal ef with moderate LVH, mild MV disease, trace AR and pulm HTN with RVSP 38 - 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 On ADM bnp >2134----> trending Lasix 20mg x1 CXR: No acute cardiopulmonary process Strict I/O Weight pt daily Low sodium diet Hypoxic On adm spo2 71% on RA Supplemented with 3L oxygen and improved 92% ABG noted and will repeated in the morning Continue with neb treatments and continue with home dose of medications Chronic conditions Hyponatremia- on adm Na+ 130, pt stated she has not been using the sodium tabs Hypokalemia- anticpating improving after lasix Hypertension- stable On adm BP 138/66 Recurrent UTI and sinusitis- pt was recently treated with antbx for sinusitis Hypothyroidism- TSH >9, pt on synthroid will repeat TSH and potentially adjust home dose of medication Code status: Full code with restrictions GI ppx: protonix VTE ppx: Ambulate and SCD Time 45 minutes and case discussed with Dr Rodarte - Assessment/Plan (1) Hypoxemia Problem: Acute (2) Edema extremities Problem: Chronic (3) Hyponatremia Problem: Chronic (4) HTN (hypertension) Problem: Chronic Qualifiers: Hypertension type: essential hypertension Qualified Code(s): I10 - Essential (primary) hypertension (5) Hypothyroidism Problem: Chronic Qualifiers: Hypothyroidism type: acquired Qualified Code(s): E03.9 - Hypothyroidism, unspecified (6) Acute exacerbation of chronic obstructive pulmonary disease (COPD) Problem: Acute (7) Hyperkalemia Problem: Acute
[2017-09-27] MEDS ORDERED: FUROSEMIDE 10 MG/ML VIAL IV ONE (01:15)
[2017-09-27] MEDS: METHYLPREDNISOLONE SOD SUCC 60 MG in WATER FOR INJ.,BACTERIOSTATIC 0 ML IV SCH ×4 (01:41→19:02)
[2017-09-27] MEDS: ALBUTEROL SULFATE/IPRATROPIUM 3 ML NEBU IH SCH ×5 (02:04→18:03)
[2017-09-27] MEDS ORDERED: ALBUTEROL SULFATE 2.5 MG/0.5 ML VIAL.NEB IH PRN (03:00)
[2017-09-27 07:04] LABS: Anion Gap 12.4 mmol/L (6.8-13.8); BUN/Creatinine Ratio 17.8 (9.0-21.6); Calcium * 8.9 mg/dL (7.9-10.9); Estimated Creat Clear 38.1; Potassium 4.4 mmol/L (3.4-4.6); TSH * 2.797 uIU/mL (0.358-3.74)
[2017-09-27] MEDS: LEVOTHYROXINE SODIUM 25 MCG TABLET PO SCH (07:06)
[2017-09-27] MEDS: PANTOPRAZOLE SODIUM 40 MG TABLET.EC PO SCH (07:06)
[2017-09-27] MEDS: FLUTICASONE/SALMETEROL 14 PUFF DISK.W.DEV IH SCH ×2 (07:40→19:02)
[2017-09-27] MEDS: LORATADINE 10 MG TABLET PO SCH (08:45)
[2017-09-27] MEDS: NIFEdipine 30 MG TAB.SR.24H PO SCH (08:45)
[2017-09-27] MEDS: MAGNESIUM OXIDE 400 MG TABLET PO SCH (08:45)
[2017-09-27] MEDS: SACCHAROMYCES BOULARDII 250 MG CAPSULE PO SCH ×2 (08:45→20:08)
[2017-09-27] MEDS ORDERED: FUROSEMIDE 40 MG TABLET PO ONE (14:12)
[2017-09-27] MEDS: ROSUVASTATIN CALCIUM 10 MG TABLET PO SCH (20:08)
[2017-09-27] MEDS: LEVOFLOXACIN/D5W 500 MG/100 ML BAG IV SCH (22:36)
[2017-09-28] MEDS: METHYLPREDNISOLONE SOD SUCC 60 MG in WATER FOR INJ.,BACTERIOSTATIC 0 ML IV SCH ×4 (02:34→19:19)
[2017-09-28 05:37] LABS: Hematocrit 37.7 % (37.0-47.0); Hemoglobin 12.7 gm/dL (12.5-16.0); Mean Cell Volume 87.3 fl (78-100); Mean Corpuscular Hemoglobin 29.4 pg (27-31); Mean Corpuscular Hgb Conc 33.7 g/dl (32-36); Neutrophil # 15.2 K/mm3 (1.3-6.0); Neutrophil % 93.9 % (42-75.0); Platelet Count 263 K/mm3 (150-450); Red Blood Count 4.32 M/mm3 (4.2-5.4); Red Cell Distribution Width 14.3 % (11.5-14.0); White Blood Count 16.2 K/mm3 (4.0-10.5)
[2017-09-28 05:56] LABS: Albumin * 3.3 gm/dl (3.4-5.0); Anion Gap 10.7 mmol/L (6.8-13.8); BUN/Creatinine Ratio 17.9 (9.0-21.6); Bilirubin, Total 0.4 mg/dL (0.0-1.1); Ca. Corrected For Albumin 9.1 mg/dL (8.4-10.2); Calcium * 8.9 mg/dL (7.9-10.9); Carbon Dioxide 28.9 mmol/L (24-32.6); Potassium 4.6 mmol/L (3.4-4.6); Total Protein 6.6 gm/dL (6.2-8.2)
[2017-09-28] MEDS: ALBUTEROL SULFATE/IPRATROPIUM 3 ML NEBU IH SCH ×4 (06:02→18:21)
--- NOTE | 2017-09-28 06:43 | PN ---
Subjective - Date and Time Seen Date: 09/28/17 Time: 06:34 Subjective Narrative: Patient seen today AOX3 no acute distress, pt stated swelling to BLE improved and she is able to breath comfortable without use of supplemented oxygen. However when she gets up to use the bathroom she get short of breath. Pt anticipate oxygen walk test later today.She denies cough, fever, chills, orthopnea and chest pain. Objective - Review of Systems Generalized/Overall Review: Reports: No Symptoms Reported EENTM: Reports: No Symptoms Reported Respiratory: Reports: Shortness of Breath Cardiac: Reports: No Symptoms Reported Abdominal: Reports: No Symptoms Reported Genitourinary Symptoms: Reports: No Symptoms Reported Musculoskeletal Complaints: Reports: No Symptoms Reported Neurological: Reports: No Symptoms Reported Skin: Reports: No Symptoms Reported - Vitals Vitals: Last Vital Signs Temp 36.7 C 09/28/17 01:00 Pulse 94 09/28/17 06:12 Resp 16 09/28/17 06:12 BP 106/48 09/28/17 01:00 Pulse Ox 94 09/28/17 06:02 - Abnormal Lab Findings Abnormal Lab Findings: Abnormal Lab Results 09/27/17 09/28/17 09/28/17 Range/Units 06:10 05:34 05:34 WBC 16.2 H D (4.0-10.5) K/mm3 RDW 14.3 H (11.5-14.0) % MPV 11.0 H (6.0-9.5) fl Immature Gran % (Auto) 0.60 H (0.001-0.429) % Immature Gran # (Auto) 0.10 H (0.000-0.0310) K/mm3 Neutrophils % 93.9 H (42-75.0) % Lymphocytes % 3.3 L (20-51) % Neutrophils # 15.2 H (1.3-6.0) K/mm3 Lymphocytes # 0.5 L (1.5-3.5) k/mm3 Sodium 131 L 131 L (132-142) mmol/L Chloride 96 L 96 L (97-106) mmol/L Est GFR (Non-Af Amer) 55 L 47 L (60-130) mL/min Random Glucose 133 H 129 H (70-110) mg/dL B-Natriuretic Peptide 2241 H (5-550) pg/mL Albumin 3.3 L (3.4-5.0) gm/dl - Exam Constitutional: Present: Alert, Oriented x3, Cooperative, Well developed, No distress, Thin and frail ENT Exam: Present: hard of hearing Neck: Present: full range of motion Respiratory: Present: chest non-tender, normal breath sounds, no respiratory distress, decreased breath sounds Cardiovascular/Chest: Present: normal peripheral pulses, regular rate, rhythm, no chest tenderness, no gallop, systolic murmur, edema Abdomen: Present: Normal bowel sounds, soft, nontender, nondistended, no rebound tenderness Extremity: Present: normal capillary refill Skin Exam: Present: normal color, warm/dry Neurologic: Present: oriented x 3 Appearance: Present: appropriate appearance Eye contact: Present: cooperative, good eye contact Thoughts: Present: normal thought pattern Assessment/Plan Plan Narrative: Acute on chronic COPD exacerbation- Improved Pt stated she feels much better since adm and only have the shortness of breath occasionally with exertion Continue with Levaquin, duoneb treatment and solumedrol Per ERP CXR: No acute cardiopulmonary process Pt was weaned off oxygen yesterday oxygen walk before discharge Encourage use of I/S and cornet D- Dimer 0.84 CT chest negative for PE CHF pt stated he BLE edema has gotten worst over the past 2-3 days and uses 3 pillows to sleep 01/15/17 Echo:showed normal ef with moderate LVH, mild MV disease, trace AR and pulm HTN with RVSP 38 - 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 On ADM bnp >2134----> >2200 Additional Lasix 40mg x1 was given and swelling in legs resolving CXR: No acute cardiopulmonary process, o pulmonary congestion Strict I/O Weight pt daily Low sodium diet Chronic conditions Hyponatremia- on adm Na+ 130, pt stated she has not been using the sodium tabs Hypokalemia- anticpating improving after lasix Hypertension- stable On adm BP 138/66 Recurrent UTI and sinusitis- pt was recently treated with antbx for sinusitis Hypothyroidism- TSH >9--->2 pt on synthroid will continue home dose of medication Hypoxic- resolved On adm spo2 71% on RA----> Today 94% on RA Pt weaned off oxygen Continue with neb treatments and continue with home dose of medications Code status: Full code with restrictions GI ppx: protonix VTE ppx: Ambulate and SCD Time 15 minutes and case discussed with Dr Calzada - Problems/Diagnosis (1) Hypoxemia Problem: Acute (2) Edema extremities Problem: Chronic (3) Hyponatremia Problem: Chronic (4) HTN (hypertension) Problem: Chronic Qualifiers: Hypertension type: essential hypertension Qualified Code(s): I10 - Essential (primary) hypertension (5) Hypothyroidism Problem: Chronic Qualifiers: Hypothyroidism type: acquired Qualified Code(s): E03.9 - Hypothyroidism, unspecified (6) Acute exacerbation of chronic obstructive pulmonary disease (COPD) Problem: Acute (7) Hyperkalemia Problem: Acute (8) CHF (congestive heart failure) Problem: Chronic Qualifiers: Congestive heart failure type: diastolic (9) Aortic heart murmur Problem: Chronic
[2017-09-28] MEDS: FLUTICASONE/SALMETEROL 14 PUFF DISK.W.DEV IH SCH ×2 (06:53→19:19)
[2017-09-28] MEDS: PANTOPRAZOLE SODIUM 40 MG TABLET.EC PO SCH (06:58)
[2017-09-28] MEDS: LEVOTHYROXINE SODIUM 25 MCG TABLET PO SCH (06:58)
[2017-09-28] MEDS: MAGNESIUM OXIDE 400 MG TABLET PO SCH (09:00)
[2017-09-28] MEDS: SACCHAROMYCES BOULARDII 250 MG CAPSULE PO SCH ×2 (09:00→20:06)
[2017-09-28] MEDS: NIFEdipine 30 MG TAB.SR.24H PO SCH (09:00)
[2017-09-28] MEDS: LORATADINE 10 MG TABLET PO SCH (09:01)
[2017-09-28] MEDS: ROSUVASTATIN CALCIUM 10 MG TABLET PO SCH (20:06)
[2017-09-28] MEDS: LEVOFLOXACIN/D5W 500 MG/100 ML BAG IV SCH (21:42)
[2017-09-29] MEDS: METHYLPREDNISOLONE SOD SUCC 60 MG in WATER FOR INJ.,BACTERIOSTATIC 0 ML IV SCH (01:31)
[2017-09-29] MEDS: ALBUTEROL SULFATE/IPRATROPIUM 3 ML NEBU IH SCH ×4 (06:01→18:14)
[2017-09-29] MEDS: FLUTICASONE/SALMETEROL 14 PUFF DISK.W.DEV IH SCH ×2 (06:30→18:29)
[2017-09-29] MEDS: LEVOTHYROXINE SODIUM 25 MCG TABLET PO SCH (06:31)
[2017-09-29] MEDS: PANTOPRAZOLE SODIUM 40 MG TABLET.EC PO SCH (06:31)
--- NOTE | 2017-09-29 08:23 | PN ---
Progess Note - Interim Narrative: 09/29/17 08:18 complaint of some tingling in both fingers and some PND discharge and stomach upset, otherwise feels good. PE: Thin, alert, no distress Fair AE haleigh, no accessory muscle use or signs of respiratory distress at rest. Stomach is soft NT, NABS. 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 A/P COPD with exacerbation - stable, ok for discharge - changed to PO prednisone today Acute respiratory failure - Sats ok at rest, awaiting ambulatory O2 to see if she needs O2. Yesterday did drop to 80% when ambulating with 90's being achieved 1 liter O2. Will see if things are same today. weakness - most likely due to COPD exacerbation and steroids. expect improvement, but can ambulate so does not need PT here. Discharge planning: anticipate d/c home later today.
[2017-09-29] MEDS: NIFEdipine 30 MG TAB.SR.24H PO SCH (09:04)
[2017-09-29] MEDS: LORATADINE 10 MG TABLET PO SCH (09:04)
[2017-09-29] MEDS: MAGNESIUM OXIDE 400 MG TABLET PO SCH (09:06)
[2017-09-29] MEDS: predniSONE 20 MG TABLET PO SCH (09:08)
[2017-09-29] MEDS: SACCHAROMYCES BOULARDII 250 MG CAPSULE PO SCH ×2 (09:08→20:43)
--- NOTE | 2017-09-29 15:21 | PN ---
Subjective - Date and Time Seen Date: 09/29/17 Time: 15:18 Subjective Narrative: pt. still having significant EVANS and dropping into the upper 70's with ambulation. 2 LNC required to keep sats in the low 90's, is 88-90 on 1LNC but acts very EVANS on 1LNC. Objective - Review of Systems Generalized/Overall Review: Reports: Weakness, Malaise, Fatigue. Denies: Chills , Fever EENTM: Reports: No Symptoms Reported Respiratory: Reports: Shortness of Breath, Wheezing Cardiac: Denies: Edema Abdominal: Reports: No Symptoms Reported Genitourinary Symptoms: Reports: No Symptoms Reported Musculoskeletal Complaints: Reports: No Symptoms Reported Neurological: Reports: Weakness Skin: Reports: No Symptoms Reported Endocrine: Reports: No Symptoms Reported - Vitals Vitals: Last Vital Signs Temp 37.1 C 09/29/17 10:32 Pulse 100 09/29/17 14:10 Resp 18 09/29/17 14:10 BP 122/48 09/29/17 10:32 Pulse Ox 93 09/29/17 14:10 - Exam Constitutional: Present: Alert, Oriented x3, Cooperative, Elderly, Thin and frail ENT Exam: Present: hearing grossly normal Neck: Present: supple Respiratory: Present: no respiratory distress - but was at rest, no accessory muscle use, decreased breath sounds, expiration (prolonged) Cardiovascular/Chest: Present: regular rate, rhythm, systolic murmur Abdomen: Present: Normal bowel sounds, soft, nontender, nondistended, no rebound tenderness, no hepatospenomegaly Extremity: Present: no calf tenderness. Absent: lower extremity edema Skin Exam: Present: normal color Neurologic: Present: normal mood/affect, oriented x 3 Appearance: Present: appropriate appearance, appropriate insight, neat Eye contact: Present: cooperative, good eye contact, normal speech Thoughts: Present: normal thought pattern, no apparent hallucination Assessment/Plan - Problems/Diagnosis (1) Hypoxemia Problem: Acute Narrative: ok off O2 at rest but needs O2 when ambulating. Due to needing O2 and inability to get it set up prior to d/c today will keep her here until tomorrow (2) Acute exacerbation of chronic obstructive pulmonary disease (COPD) Problem: Acute Narrative: improving. (3) Weakness generalized Problem: Acute Narrative: better (4) Osteoarthritis Problem: Chronic Qualifiers: Osteoarthritis location: unspecified site Osteoarthritis type: primary Qualified Code(s): M19.91 - Primary osteoarthritis, unspecified site Narrative: stable (5) Acute respiratory failure with hypoxia Problem: Acute Narrative: needing O2 at time of discharge, at least while ambulating. (6) Discharge planning issues Problem: Acute Narrative: Due to needing O2 and inability to get it set up today, she will have to remain in hospital until tomorrow.
[2017-09-29] MEDS: ROSUVASTATIN CALCIUM 10 MG TABLET PO SCH (20:43)
[2017-09-29] MEDS ORDERED: LEVOFLOXACIN/D5W 500 MG/100 ML BAG IV SCH (22:15)
[2017-09-30] MEDS: ALBUTEROL SULFATE/IPRATROPIUM 3 ML NEBU IH SCH ×2 (06:11→10:12)
[2017-09-30] MEDS: FLUTICASONE/SALMETEROL 14 PUFF DISK.W.DEV IH SCH (06:45)
[2017-09-30] MEDS: PANTOPRAZOLE SODIUM 40 MG TABLET.EC PO SCH (06:45)
[2017-09-30] MEDS: LEVOTHYROXINE SODIUM 25 MCG TABLET PO SCH (06:45)
[2017-09-30 06:55] VITALS: BP 148/72
[2017-09-30] MEDS: NIFEdipine 30 MG TAB.SR.24H PO SCH (08:32)
[2017-09-30] MEDS: LORATADINE 10 MG TABLET PO SCH (08:32)
[2017-09-30] MEDS: SACCHAROMYCES BOULARDII 250 MG CAPSULE PO SCH (08:32)
[2017-09-30] MEDS: MAGNESIUM OXIDE 400 MG TABLET PO SCH (08:32)
[2017-09-30] MEDS: predniSONE 20 MG TABLET PO SCH (08:32)
--- NOTE | 2017-09-30 09:13 | DS ---
(1) Hypoxemia Problem: Acute (2) Acute exacerbation of chronic obstructive pulmonary disease (COPD) Problem: Acute (3) Weakness generalized Problem: Acute (4) Osteoarthritis Problem: Chronic Qualifiers: Osteoarthritis location: unspecified site Osteoarthritis type: primary Qualified Code(s): M19.91 - Primary osteoarthritis, unspecified site (5) Acute respiratory failure with hypoxia Problem: Acute (6) Discharge planning issues Problem: Acute Description of Stay: Pt. admitted for COPD exacerbation with acute respiratory failure. Was tx with IV steroids and abx, transitioned to po meds and weaned off O2 at rest, but sats dropped to upper 70's, low 80's with ambulation, requiring O2 1-2 liters NC to keep sats > 88%. She will discharged home on O2 to use when ambulating and will continue Abx and steroid taper. Pt. had levaquin listed as allergy, but was given levaquin in hospital and tolerated well, so will continue outpt. Procedures Performed: none Discharge Disposition: Home self care Disposition: Home self-care Condition: Fair Discharge Activity: Activity as tolerated Discharge Diet: General/regular food Referrals: Ria Schofield MD [Primary Care Provider] - One Week Problem Oriented Discharge Instructions to Patient/Family: Chronic Obstructive Pulmonary Disease Exacerbation, [id number] Additional Patient Instructions (free text): Follow up with Dr. Schofield 10/07 at 1:30 Prescriptions (Any new or edited meds): Levofloxacin [Levaquin] 250 mg PO DAILY #7 tablet predniSONE [Prednisone] See Taper PO DAILY #21 tablet Complete Home Medications List: Complete Home Medication List: Levothyroxine Sodium [Synthroid] 25 mcg PO DAILY 12/11/15 NIFEdipine [Adalat cc] 60 mg PO DAILY 12/11/15 Albuterol Sulfate [Ventolin Hfa] 1 puff IH PRN PRN 03/21/17 Albuterol Sulfate/Ipratropium [Duoneb 2.5-0.5MG/3ML Soln] 3 ml IH QIDRT #120 dose 03/27/17 Loratadine [Claritin] 10 mg PO DAILY #30 tablet 03/27/17 Magnesium Oxide [Mag-Ox 400] 400 mg PO DAILY #30 tablet 03/27/17 Pantoprazole Sodium [Protonix] 40 mg PO DAILY@0700 #30 tablet. 03/27/17 Ergocalciferol (Vitamin D2) [Vitamin D2] 50,000 unit PO Q7D 09/26/17 Saccharomyces Boulardii [Florastor] 250 mg PO BID 09/26/17 Atorvastatin Calcium 10 mg PO DAILY 09/27/17 Fluticasone/Salmeterol [Advair 250-50 Diskus] 1 puff IH BID 09/27/17 Trolamine Salicylate [Aspercreme] 1 appl TP Q2H PRN 09/27/17 Levofloxacin [Levaquin] 250 mg PO DAILY #7 tablet 09/30/17 predniSONE [Prednisone] See Taper PO DAILY #21 tablet 09/30/17 Amb Orders for Discharge: Home Oxygen Discharge Order Time Frame: 1 Day, Location: Determined By Patient
[2017-09-30] MEDS ORDERED: LEVOFLOXACIN/D5W 250 MG/50 ML BAG IV SCH (22:00)
[2017-10-02] MEDS ORDERED: ERGOCALCIFEROL 50000 UNIT TABLET PO SCH (09:00)
== END 2017-09-30 13:15 | disposition home or self-care (01) | DRG 189 ==
LOC: ER 21:11 → MS 23:45 → OBSVTOIN 09-27 01:17
PROVIDERS: ADMIT Nurse Practitioner; ATTEND Allergy & Immunology
PROC: 4A033R1 Measurement of Arterial Saturation, Peripheral, Percutaneous Approach (ICD-10-PCS; principal; 2017-09-26)
DX: J96.01 Acute respiratory failure with hypoxia (principal); J44.1 Chronic obstructive pulmonary disease with (acute) exacerbation; E87.1 Hypo-osmolality and hyponatremia; I50.9 Heart failure, unspecified; E87.5 Hyperkalemia; I27.22 Pulmonary hypertension due to left heart disease; I08.0 Rheumatic disorders of both mitral and aortic valves; I10 Essential (primary) hypertension; E03.9 Hypothyroidism, unspecified; R53.1 Weakness; Z87.891 Personal history of nicotine dependence
CPT/HCPCS: 36415; 36600; 71010; 71275; 80048; 80053; 81001; 82803; 83880; 84443; 84484; 85025; 85379; 87086; 93005; 94640; 96374; 97116; 97162; 97165; 99285; G0378

== ENCOUNTER 2017-10-14 08:14 | Inpatient (IN) | payer MEDICARE, MEDICAID ==
[2017-10-14] MEDS ORDERED: ALBUTEROL SULFATE 2.5 MG/0.5 ML VIAL.NEB IH ONE ×2 (08:40→08:43)
--- NOTE | 2017-10-14 08:46 | ERNOTE ---
Dyspnea - General Presenting Symptoms: shortness of breath Time Seen by Provider: 10/14/17 08:26 Source: patient, family Exam Limitations: no limitations - Immun/Allergies/Home Medications Immunizations: IMMUNIZATION HX Immunizations Up to Date Yes History of Influenza Vaccine Yes Hx Pneumococcal Vaccination Yes Allergies/Adverse Reactions: Allergies aspirin Allergy (Verified 10/14/17 08:41) ciprofloxacin Allergy (Verified 10/14/17 08:41) codeine Allergy (Verified 10/14/17 08:41) levofloxacin Allergy (Verified 10/14/17 08:41) morphine Allergy (Verified 10/14/17 08:41) Sulfa (Sulfonamide Antibiotics) Allergy (Verified 10/14/17 08:41) amoxicillin trihydrate [From Augmentin] Adverse Reaction (Verified 10/14/17 08: 41) cephalexin Adverse Reaction (Verified 10/14/17 08:41) potassium clavulanate [From Augmentin] Adverse Reaction (Verified 10/14/17 08:41 ) Home Medications: HOME MEDICATIONS Albuterol Sulfate [Ventolin Hfa] 1 puff IH DAILY 10/14/17 [Last Taken Unknown] Budesonide [Pulmicort Flexhaler] 180 mcg IH DAILY 10/14/17 [Last Taken Unknown] Ergocalciferol (Vitamin D2) [Vitamin D2] 50,000 unit PO DAILY 10/14/17 [Last Taken Unknown] Levothyroxine Sodium [Synthroid] 25 mcg PO DAILY 10/14/17 [Last Taken Unknown] Magnesium Oxide [Magnesium] 400 mg PO BID 10/14/17 [Last Taken Unknown] NIFEdipine [Adalat cc] 60 mg PO DAILY 10/14/17 [Last Taken Unknown] RX: Atorvastatin Calcium 10 mg PO DAILY 10/14/17 [Last Taken Unknown] RX: Loratadine 10 mg PO DAILY 10/14/17 [Last Taken Unknown] RX: Pantoprazole Sodium 40 mg PO TID 10/14/17 [Last Taken Unknown] Saccharomyces Boulardii [Florastor] 250 mg PO BID 10/14/17 [Last Taken Unknown] - History of Present Illness Narrative: Patient has a history of COPD, was admitted to [facility] on 09/27/17 for COPD exacerbation, treated with levaquin and steroids and discharged on O2 as she continued to be hypoxic. She has not smoked in 17 years (50py), followed up with her PCP last week and states that she has been getting worse again, yellow sputum, worsening cough and shortness of breath, worse with exertion Initiating event: Denies: out of meds, exposure to smoke Frequency of episodes: Reports: chronic episodes Modifying Factors - (Improves): Reports: albuterol, rest Modifying Factors (Worsens): Reports: activity, coughing Associated Symptoms-Dyspnea: Reports: cough, wheezing. Denies: fever/chills, chest pain/discomfort Prior Treatment: Reports: recently seen, recently hospitalized. Denies: currently on antibiotics Review of Systems - Review of Systems Constitutional: Present: recent illness, malaise. Absent: fever ENT: Present: sore throat - occasionally. Absent: nose congestion, nasal drainage Respiratory: Present: See HPI, shortness of breath, cough Cardiology: Absent: chest pain Gastrointestinal/Abdominal: Absent: nausea, vomiting, abdominal pain Genitourinary: Present: no symptoms reported Skin: Absent: rash Neurological: Absent: headache, weakness, numbness - Patient's Past Medical History Patient History - Medical: Cataracts, Headache, Hypothyroidism, UTI'S Patient History - Cardiac/Respiratory: Coronary Heart Disease, COPD, Hypertension Patient History - Cancer: No Hx of Cancer Patient History - Surgical Procedures: Cholecystectomy, Hysterectomy Patient History - Other: None - Family History Mother Family History - Medical: , Diabetes Type 2 Insulin Dependent Family History - Cardiac/Respiratory: CHF Family History - Cancer: No pertinent family hx Father Family History - Medical: Family History - Cardiac/Respiratory: CHF Family History - Cancer: No pertinent family hx - Social History Living Situations: home Abuse History: No History of abuse Psych History: No pertinent hx Smoking Status: Former smoker - quit 1999 - Immunizations Immunizations Up to Date: Yes Hx Pneumococcal Vaccination: Yes History of Influenza Vaccine: Yes Physical Exam - Physical Exam General Appearance: Present: wd/wn, alert, mild distress, anxious, thin Head Exam: Present: normal inspection Eye Exam: Normal inspection: bilateral, PERRL: bilateral Ears, Nose, Throat: Present: normal pharynx Respiratory: Present: no respiratory distress, no accessory muscle use, lungs clear, decreased breath sounds, expiration (prolonged) Cardiovascular/Chest: Present: tachycardia, systolic murmur Gastrointestinal/Abdominal: Present: normal bowel sounds, nontender, nondistended, soft Extremity Exam: Present: pedal edema - trace Neurological Exam: Present: alert, oriented, normal mood/affect Skin Exam: Present: normal color, warm/dry ED Progress - Results and Orders Patient's Lab Results:: I have reviewed the patient's lab results. - Vital Signs Patient's Vital Signs:: I have reviewed the patient's vital signs. - O2 sat 80% on RA - EKG EKG: NSR, other - 1st degree AV block, poor quality EKG read: Interp. by me - X-Ray X-Ray #1 X-Ray: chest - chronic changes, no infiltrate Interpretation: Reviewed by me - Progress/Reassessment Progress Note-Subjective: 10/14/17 10:23 discussed test results with patient and family, recommended admission, patient agreed 10/14/17 10:33 discussed with pa Blanco to admit, start rocephin and zithromax ( aware of augmentin allergy), give steroids Departure Clinical Impression: Hyponatremia, Acute exacerbation of chronic obstructive pulmonary disease (COPD ) - Departure Disposition: [facility] Condition: Stable
[2017-10-14 09:14] LABS: Hemoglobin 14.1 gm/dL (12.5-16.0); Mean Cell Volume 86.8 fl (78-100); Mean Corpuscular Hemoglobin 29.1 pg (27-31); Mean Corpuscular Hgb Conc 33.6 g/dl (32-36); Mean Platelet Volume 11.7 fl (6.0-9.5); Neutrophil # 8.3 K/mm3 (1.3-6.0); Neutrophil % 84.1 % (42-75.0); Platelet Count 258 K/mm3 (150-450); Red Blood Count 4.84 M/mm3 (4.2-5.4); Red Cell Distribution Width 13.9 % (11.5-14.0); White Blood Count 9.8 K/mm3 (4.0-10.5)
[2017-10-14 09:20] LABS: ALT 39 U/L (19-67); AST 47 U/L (0-48); Albumin * 4.1 gm/dl (3.4-5.0); Alkaline Phosphatase * 152 U/L (50-170); Anion Gap 14.9 mmol/L (6.8-13.8); BNP * 1870 pg/mL (5-550); BUN/Creatinine Ratio 18.7 (9.0-21.6); Bilirubin, Total 1.5 mg/dL (0.0-1.1); Blood Urea Nitrogen 14 mg/dL (3-23); Ca. Corrected For Albumin 9.3 mg/dL (8.4-10.2); Calcium * 9.7 mg/dL (7.9-10.9); Carbon Dioxide 26.8 mmol/L (24-32.6); Chloride 89 mmol/L (97-106); Glucose * 83 mg/dL (70-110); Potassium 4.7 mmol/L (3.4-4.6); Sodium 126 mmol/L (132-142); Total Protein 8.4 gm/dL (6.2-8.2); Troponin I Less than 0.017 ng/ml (0.00-0.10)
[2017-10-14] MEDS ORDERED: METHYLPREDNISOLONE SOD SUCC/PF 125 MG/2 ML VIAL IV ONE (10:35)
[2017-10-14] MEDS ORDERED: METHYLPREDNISOLONE SOD SUCC/PF 40 MG/ML VIAL IV ONE (10:35)
[2017-10-14] MEDS ORDERED: METHYLPREDNISOLONE SOD SUCC/PF 40 MG/ML VIAL ONE (10:40)
[2017-10-14] MEDS ORDERED: AZITHROMYCIN 250 MG TABLET PO STA (10:48)
[2017-10-14] MEDS ORDERED: AZITHROMYCIN 250 MG TABLET ONE (11:00)
[2017-10-14] MEDS: NORMAL SALINE 1,000 ML IV PRN (11:56)
--- NOTE | 2017-10-14 12:48 | HP ---
Chief Complaint - Chief Complaint Date of Service: 10/14/17 Time of Service: 12:48 Chief Complaint: Shortness of breath History of Present Illness: Alba is an 87 yo female presenting to the [facility] ER with 1 week worsening shortness of breath. She was previously treated for COPD exacerbation and sent home on oxygen. She has been using 2lpm at home continuously but still getting short of breath. In the ER she was 70% and increased to 3lpm. She was also found to have a low sodium of 126. She believes she has been eating and drinking like normal. She has not changed any medications, no recent travel, and no sick contacts. - Patient's Past Medical History Patient History - Medical: Cataracts, Headache, Hypothyroidism, UTI'S Patient History - Cardiac/Respiratory: Coronary Heart Disease, COPD, Hypertension Patient History - Cancer: No Hx of Cancer Patient History - Surgical Procedures: Cholecystectomy, Hysterectomy Patient History - Other: None - Family History Mother Family History - Medical: , Diabetes Type 2 Insulin Dependent Family History - Cardiac/Respiratory: CHF Family History - Cancer: No pertinent family hx Father Family History - Medical: Family History - Cardiac/Respiratory: CHF Family History - Cancer: No pertinent family hx - Social History Living Situations: alone Abuse History: No History of abuse Psych History: No pertinent hx Smoking Status: Former smoker Have you smoked in the past 12 months: No Do you dip or chew tobacco: No Alcohol Use: none Drug Use: none - Immunizations Immunizations Up to Date: Yes Hx Pneumococcal Vaccination: Yes History of Influenza Vaccine: Yes Review Of Systems (GEN) - Review of Systems Generalized/Overall Review: Present: Weakness. Absent: Chills, Fever EENTM: Present: No Symptoms Reported Respiratory: Present: Cough, Shortness of Breath Cardiac: Absent: Chest Pain, Edema Abdominal: Absent: Nausea, Vomiting Genitourinary: Present: No Symptoms Reported Musculoskeletal: Present: No Symptoms Reported Neurological: Present: No Symptoms Reported Skin: Present: No Symptoms Reported Endocrine: Present: No Symptoms Reported Misc: All systems neg except as marked Immunizations: IMMUNIZATION HX Immunizations Up to Date Yes History of Influenza Vaccine Yes Hx Pneumococcal Vaccination Yes Allergies/Adverse Reactions: Allergies Allergy/AdvReac Type Severity Reaction Status Date / Time aspirin Allergy Verified 10/14/17 08:41 ciprofloxacin Allergy Verified 10/14/17 08:41 codeine Allergy Verified 10/14/17 08:41 levofloxacin Allergy Verified 10/14/17 08:41 morphine Allergy Verified 10/14/17 08:41 Sulfa (Sulfonamide Allergy Verified 10/14/17 08:41 Antibiotics) amoxicillin trihydrate AdvReac Verified 10/14/17 08:41 [From Augmentin] cephalexin AdvReac Verified 10/14/17 08:41 potassium clavulanate AdvReac Verified 10/14/17 08:41 [From Augmentin] Home Medications: HOME MEDICATIONS Albuterol Sulfate [Ventolin Hfa] 1 puff IH DAILY 10/14/17 [Last Taken Unknown] Atorvastatin Calcium 10 mg PO DAILY 10/14/17 [Last Taken Unknown] Budesonide [Pulmicort Flexhaler] 180 mcg IH BID 10/14/17 [Last Taken Unknown] Ergocalciferol (Vitamin D2) [Vitamin D2] 50,000 unit PO DAILY 10/14/17 [Last Taken Unknown] Levothyroxine Sodium [Synthroid] 25 mcg PO DAILY 10/14/17 [Last Taken Unknown] Loratadine 10 mg PO DAILY 10/14/17 [Last Taken Unknown] Magnesium Oxide [Magnesium] 400 mg PO BID 10/14/17 [Last Taken Unknown] NIFEdipine [Adalat cc] 60 mg PO DAILY 10/14/17 [Last Taken Unknown] Pantoprazole Sodium 40 mg PO DAILY 10/14/17 [Last Taken Unknown] Saccharomyces Boulardii [Florastor] 250 mg PO BID 10/14/17 [Last Taken Unknown] Exam - Exam Vital Signs: Vital Signs - Last Taken Temp 36.6 C 10/14/17 11:26 Pulse 70 10/14/17 11:26 Resp 21 H 10/14/17 11:26 BP 149/76 10/14/17 11:26 Pulse Ox 91 10/14/17 11:26 Constitutional: Present: Alert, Oriented x3, Cooperative ENT Exam: Present: hearing grossly normal Eye Exam: bilateral eye: normal inspection Respiratory: Present: decreased breath sounds - Bilateral bases Cardiovascular/Chest: Present: regular rate, rhythm, systolic murmur - 2+ Peripheral Pulses: dorsalis-pedis (R): 2+, dorsalis-pedis (L): 2+ Abdomen: Present: Normal bowel sounds, soft, nontender, nondistended Skin Exam: Present: normal color, warm/dry, no cyanosis Appearance: Present: appropriate appearance, appropriate insight Eye contact: Present: cooperative, good eye contact, normal speech Thoughts: Present: normal thought pattern, no apparent hallucination Diagnostic Studies: Laboratory Results WBC 9.8 K/mm3 (4.0-10.5) 10/14/17 09:00 RBC 4.84 M/mm3 (4.2-5.4) 10/14/17 09:00 Hgb 14.1 gm/dL (12.5-16.0) 10/14/17 09:00 Hct 42.0 % (37.0-47.0) 10/14/17 09:00 MCV 86.8 fl (78-100) 10/14/17 09:00 MCH 29.1 pg (27-31) 10/14/17 09:00 MCHC 33.6 g/dl (32-36) 10/14/17 09:00 RDW 13.9 % (11.5-14.0) 10/14/17 09:00 Plt Count 258 K/mm3 (150-450) 10/14/17 09:00 MPV 11.7 fl (6.0-9.5) H 10/14/17 09:00 Immature Gran % (Auto) 0.50 % (0.001-0.429) H 10/14/17 09:00 Immature Gran # (Auto) 0.05 K/mm3 (0.000-0.0310) H 10/14/17 09:00 Neutrophils % 84.1 % (42-75.0) H 10/14/17 09:00 Lymphocytes % 5.9 % (20-51) L 10/14/17 09:00 Monocytes % 7.8 % (0.0-9) 10/14/17 09:00 Eosinophils % 0.9 % (0.0-3.0) 10/14/17 09:00 Basophils % 0.8 % (0.0-1.0) 10/14/17 09:00 Nucleated RBC % 0.0 k/mm3 (0-1) 10/14/17 09:00 Neutrophils # 8.3 K/mm3 (1.3-6.0) H 10/14/17 09:00 Lymphocytes # 0.6 k/mm3 (1.5-3.5) L 10/14/17 09:00 Monocytes # 0.8 k/mm3 (0.0-1.0) 10/14/17 09:00 Eosinophils # 0.1 k/mm3 (0.0-0.7) 10/14/17 09:00 Absolute Basophils 0.1 k/mm3 (0.0-0.1) 10/14/17 09:00 pCO2 37.3 mmHg (32.0-45.0) 10/14/17 10:10 pO2 54.7 mmHg (83.0-108.0) L 10/14/17 10:10 HCO3 25.6 mmol/L (21.0-28.0) 10/14/17 10:10 Total CO2 26.8 mmol/L (19.0-24.0) H 10/14/17 10:10 Base Excess 1.9 mmol/L (-2.0-3.0) 10/14/17 10:10 ABG pH 7.46 (7.35-7.45) H 10/14/17 10:10 ABG O2 Sat (Measured) 90.1 % (94.0-98.0) L 10/14/17 10:10 Sodium 126 mmol/L (132-142) L 10/14/17 09:00 Plasma Sodium 126 mmol/L (130-142) L 10/14/17 09:00 Potassium 4.7 mmol/L (3.4-4.6) H 10/14/17 09:00 Chloride 89 mmol/L (97-106) L 10/14/17 09:00 Carbon Dioxide 26.8 mmol/L (24-32.6) 10/14/17 09:00 Anion Gap 14.9 mmol/L (6.8-13.8) H 10/14/17 09:00 BUN 14 mg/dL (3-23) 10/14/17 09:00 Creatinine 0.75 mg/dL (0.4-1.4) 10/14/17 09:00 Est GFR (Non-Af Amer) 78 mL/min (60-130) D 10/14/17 09:00 BUN/Creatinine Ratio 18.7 (9.0-21.6) 10/14/17 09:00 Random Glucose 83 mg/dL (70-110) 10/14/17 09:00 Calcium 9.7 mg/dL (7.9-10.9) 10/14/17 09:00 Calcium Adj for Albumin 9.3 mg/dL (8.4-10.2) 10/14/17 09:00 Total Bilirubin 1.5 mg/dL (0.0-1.1) H 10/14/17 09:00 AST 47 U/L (0-48) 10/14/17 09:00 ALT 39 U/L (19-67) 10/14/17 09:00 Alkaline Phosphatase 152 U/L (50-170) 10/14/17 09:00 Troponin I Less than 0.017 ng/ml (0.00-0.10) 10/14/17 09:00 B-Natriuretic Peptide 1870 pg/mL (5-550) H 10/14/17 09:00 Total Protein 8.4 gm/dL (6.2-8.2) H 10/14/17 09:00 Albumin 4.1 gm/dl (3.4-5.0) 10/14/17 09:00 Influenza Type A Ag Negative (NEGATIVE) 10/14/17 09:10 Influenza Type B Ag Negative (NEGATIVE) 10/14/17 09:10 Assessment/Plan - Narrative Narrative: Alba is an 87 yo female with: 1) Hyponatremia of 126 - No evidence of hypervolemia. Will give gentle fluids at normal saline at 75ml/hr. 2) Acute on chronic respiratory failure secondary to COPD exacerbation. She has been on 2lpm continuous at home. Requiring 3lpm in the ER to keep oxygen >90%. Will attempt to wean to baseline oxygen while we treat with nebulizers per RT, steroids, and rocephin/azithromycin. Expect >2 midnights for correction of sodium and treatment of COPD. - Assessment/Plan (1) Acute and chronic respiratory failure Problem: Acute (2) Acute exacerbation of chronic obstructive pulmonary disease (COPD) Problem: Acute (3) Hyponatremia Problem: Chronic
[2017-10-14] MEDS: LORATADINE 10 MG TABLET PO SCH (13:16)
[2017-10-14] MEDS: SACCHAROMYCES BOULARDII 250 MG CAPSULE PO SCH ×2 (13:16→20:25)
[2017-10-14] MEDS: NIFEdipine 30 MG TAB.SR.24H PO SCH (13:16)
[2017-10-14] MEDS: PANTOPRAZOLE SODIUM 40 MG TABLET.EC PO SCH (13:17)
[2017-10-14] MEDS: ALBUTEROL SULFATE/IPRATROPIUM 3 ML NEBU IH SCH (18:00)
[2017-10-14] MEDS: ROSUVASTATIN CALCIUM 10 MG TABLET PO SCH (20:25)
[2017-10-14] MEDS: MAGNESIUM OXIDE 400 MG TABLET PO SCH (20:25)
[2017-10-15] MEDS: NORMAL SALINE 1,000 ML IV PRN ×2 (01:58→15:28)
[2017-10-15] MEDS: ALBUTEROL SULFATE/IPRATROPIUM 3 ML NEBU IH SCH ×4 (06:11→18:29)
[2017-10-15] MEDS: LEVOTHYROXINE SODIUM 25 MCG TABLET PO SCH (07:20)
[2017-10-15] MEDS: PANTOPRAZOLE SODIUM 40 MG TABLET.EC PO SCH (07:22)
[2017-10-15 08:09] LABS: Hematocrit 40.9 % (37.0-47.0); Hemoglobin 13.7 gm/dL (12.5-16.0); Mean Cell Volume 86.5 fl (78-100); Mean Corpuscular Hgb Conc 33.5 g/dl (32-36); Mean Platelet Volume 11.2 fl (6.0-9.5); Neutrophil # 8.5 K/mm3 (1.3-6.0); Neutrophil % 81.9 % (42-75.0); Platelet Count 238 K/mm3 (150-450); Red Blood Count 4.73 M/mm3 (4.2-5.4); Red Cell Distribution Width 13.8 % (11.5-14.0); White Blood Count 10.4 K/mm3 (4.0-10.5)
[2017-10-15] MEDS: LORATADINE 10 MG TABLET PO SCH (08:19)
[2017-10-15] MEDS: SACCHAROMYCES BOULARDII 250 MG CAPSULE PO SCH ×2 (08:19→20:04)
[2017-10-15] MEDS: NIFEdipine 30 MG TAB.SR.24H PO SCH (08:20)
[2017-10-15] MEDS: MAGNESIUM OXIDE 400 MG TABLET PO SCH ×2 (08:20→20:04)
[2017-10-15 08:21] LABS: Albumin * 3.7 gm/dl (3.4-5.0); Anion Gap 11.6 mmol/L (6.8-13.8); BUN/Creatinine Ratio 13.5 (9.0-21.6); Bilirubin, Total 0.6 mg/dL (0.0-1.1); Calcium * 9.1 mg/dL (7.9-10.9); Carbon Dioxide 27.5 mmol/L (24-32.6); Potassium 4.1 mmol/L (3.4-4.6); Total Protein 7.8 gm/dL (6.2-8.2)
[2017-10-15] MEDS: AZITHROMYCIN 250 MG TABLET PO SCH (09:54)
[2017-10-15 12:21] LABS: BUN/Creatinine Ratio 14.3 (9.0-21.6); Calcium * 8.7 mg/dL (7.9-10.9); Estimated Creat Clear 45.8
[2017-10-15] MEDS ORDERED: predniSONE 20 MG TABLET PO ONE (16:20)
[2017-10-15] MEDS ORDERED: BENZONATATE 100 MG CAPSULE PO PRN (16:30)
[2017-10-15 18:35] LABS: Anion Gap 9.3 mmol/L (6.8-13.8); BUN/Creatinine Ratio 13.1 (9.0-21.6); Calcium * 8.5 mg/dL (7.9-10.9); Carbon Dioxide 27.1 mmol/L (24-32.6); Estimated Creat Clear 45.8; Potassium 4.4 mmol/L (3.4-4.6)
[2017-10-15] MEDS ORDERED: FUROSEMIDE 10 MG/ML VIAL IV ONE (19:27)
[2017-10-15] MEDS: ROSUVASTATIN CALCIUM 10 MG TABLET PO SCH (20:04)
[2017-10-16] MEDS: NORMAL SALINE 1,000 ML IV PRN ×2 (01:31→12:39)
--- NOTE | 2017-10-16 06:00 | PN ---
Subjective - Date and Time Seen Date: 10/16/17 Time: 05:58 Subjective Narrative: Pt seen this am. Complains of constant productive coughing. Has not ambulated much. Na level this am up to 130. No other issues according to nursing. Objective - Vitals Vitals: Last Vital Signs Temp 36.4 C L 10/16/17 03:01 Pulse 91 10/16/17 03:01 Resp 20 10/16/17 03:01 BP 129/61 10/16/17 03:01 Pulse Ox 94 10/16/17 03:01 - Abnormal Lab Findings Abnormal Lab Findings: Abnormal Lab Results 10/15/17 10/15/17 10/15/17 Range/Units 08:05 08:05 12:05 MPV 11.2 H (6.0-9.5) fl Immature Gran # (Auto) 0.04 H (0.000-0.0310) K/mm3 Neutrophils % 81.9 H (42-75.0) % Lymphocytes % 9.9 L (20-51) % Neutrophils # 8.5 H (1.3-6.0) K/mm3 Lymphocytes # 1.0 L (1.5-3.5) k/mm3 Sodium 125 L 126 L (132-142) mmol/L Plasma Sodium 125 L 126 L (130-142) mmol/L Chloride 90 L 91 L (97-106) mmol/L 10/15/17 Range/Units 18:15 MPV (6.0-9.5) fl Immature Gran # (Auto) (0.000-0.0310) K/mm3 Neutrophils % (42-75.0) % Lymphocytes % (20-51) % Neutrophils # (1.3-6.0) K/mm3 Lymphocytes # (1.5-3.5) k/mm3 Sodium 125 L (132-142) mmol/L Plasma Sodium 125 L (130-142) mmol/L Chloride 93 L (97-106) mmol/L - Exam Constitutional: Present: Alert, Oriented x3, Cooperative, No distress, Elderly, Thin and frail ENT Exam: Present: muffled/hoarse voice Neck: Present: non-tender, full range of motion, supple Breasts: Present: Exam deferred Respiratory: Present: decreased breath sounds, No wheezing Cardiovascular/Chest: Present: normal peripheral pulses, regular rate, rhythm, no chest tenderness Abdomen: Present: Normal bowel sounds, soft, nontender /Rectal: Present: Exam deferred Extremity: Present: normal range of motion, non-tender, normal inspection, no pedal edema Skin Exam: Present: normal color, warm/dry, no cyanosis Lymphatic: Present: no adenopathy Neurologic: Present: no motor/sensory deficits, alert, normal mood/affect, oriented x 3 Appearance: Present: appropriate appearance, appropriate insight Eye contact: Present: cooperative, good eye contact, normal speech Thoughts: Present: normal thought pattern, no apparent hallucination Assessment/Plan - Problems/Diagnosis (1) Acute and chronic respiratory failure Problem: Acute Narrative: She is O2 dependent at home and requires 2 L of Oxygen 24/. Pt presented with POX level in the 70s on admission, and required 3 L to maintain > 90%. Has been weaned to her usual oxygen. Continue nebs, antibiotics and steroids. (2) Hyponatremia Problem: Acute Narrative: Likely Euvolemic hyponatremia. Received treatment with Loop diuretics on 10/15 to help excrete free water. Laboratory Tests 10/14/17 10/15/17 10/16/17 09:00 08:05 05:53 Sodium 126 L 125 L 130 L (3) COPD exacerbation Problem: Acute Narrative: Plan as above. steroids, nebs, IV ax.
[2017-10-16 06:08] LABS: Anion Gap 10.5 mmol/L (6.8-13.8); BUN/Creatinine Ratio 13.4 (9.0-21.6); Calcium * 8.6 mg/dL (7.9-10.9); Carbon Dioxide 27.8 mmol/L (24-32.6); Potassium 4.3 mmol/L (3.4-4.6)
[2017-10-16] MEDS: ALBUTEROL SULFATE/IPRATROPIUM 3 ML NEBU IH SCH ×4 (06:08→19:58)
[2017-10-16] MEDS: PANTOPRAZOLE SODIUM 40 MG TABLET.EC PO SCH (06:35)
[2017-10-16] MEDS: LEVOTHYROXINE SODIUM 25 MCG TABLET PO SCH (06:35)
--- NOTE | 2017-10-16 07:43 | PN ---
Subjective - Date and Time Seen Date: 10/15/17 Time: 18:00 Subjective Narrative: Alba reports a little better. Still weak and short of breath with movement. Sodium remains low at 126. No fever, chills, n/v. Objective - Vitals Vitals: Last Vital Signs Temp 37.1 C 10/16/17 07:08 Pulse 87 10/16/17 07:08 Resp 22 H 10/16/17 07:08 BP 109/49 10/16/17 07:08 Pulse Ox 96 10/16/17 07:08 - Abnormal Lab Findings Abnormal Lab Findings: Abnormal Lab Results 10/15/17 10/15/17 10/15/17 Range/Units 08:05 08:05 12:05 MPV 11.2 H (6.0-9.5) fl Immature Gran # (Auto) 0.04 H (0.000-0.0310) K/mm3 Neutrophils % 81.9 H (42-75.0) % Lymphocytes % 9.9 L (20-51) % Neutrophils # 8.5 H (1.3-6.0) K/mm3 Lymphocytes # 1.0 L (1.5-3.5) k/mm3 Sodium 125 L 126 L (132-142) mmol/L Plasma Sodium 125 L 126 L (130-142) mmol/L Chloride 90 L 91 L (97-106) mmol/L Random Glucose (70-110) mg/dL 10/15/17 10/16/17 Range/Units 18:15 05:53 MPV (6.0-9.5) fl Immature Gran # (Auto) (0.000-0.0310) K/mm3 Neutrophils % (42-75.0) % Lymphocytes % (20-51) % Neutrophils # (1.3-6.0) K/mm3 Lymphocytes # (1.5-3.5) k/mm3 Sodium 125 L 130 L (132-142) mmol/L Plasma Sodium 125 L (130-142) mmol/L Chloride 93 L 96 L (97-106) mmol/L Random Glucose 126 H (70-110) mg/dL - Exam Constitutional: Present: Alert, Oriented x3, Cooperative ENT Exam: Present: hearing grossly normal Respiratory: Present: decreased breath sounds - bilateral base Cardiovascular/Chest: Present: regular rate, rhythm, systolic murmur - 2+ Abdomen: Present: Normal bowel sounds, soft, nontender, nondistended Skin Exam: Present: normal color, warm/dry, no cyanosis Assessment/Plan Plan Narrative: Alba is an 87 yo female with: 1) Hyponatremia of 126 - Will continue IVF of NS 100ml/hr but give lasix to diurese free water. 2) Acute on chronic respiratory failure secondary to COPD exacerbation. She was sent home on 2lpm with activity. Admitted on 3lpm continuous, but has now been weaned down to 2lpm continuous to keep sats >90%. Will attempt to wean to baseline oxygen while we treat with nebulizers per RT, steroids, and rocephin/ azithromycin. 3) Will work on strengthening. - Problems/Diagnosis (1) Acute and chronic respiratory failure Problem: Acute (2) Acute exacerbation of chronic obstructive pulmonary disease (COPD) Problem: Acute (3) Hyponatremia Problem: Acute
[2017-10-16] MEDS: AZITHROMYCIN 250 MG TABLET PO SCH (08:12)
[2017-10-16] MEDS: LORATADINE 10 MG TABLET PO SCH (08:13)
[2017-10-16] MEDS: SACCHAROMYCES BOULARDII 250 MG CAPSULE PO SCH ×2 (08:13→20:33)
[2017-10-16] MEDS: predniSONE 20 MG TABLET PO SCH (08:14)
[2017-10-16] MEDS: MAGNESIUM OXIDE 400 MG TABLET PO SCH ×2 (08:14→20:33)
[2017-10-16] MEDS: NIFEdipine 30 MG TAB.SR.24H PO SCH (08:45)
[2017-10-16] MEDS ORDERED: FUROSEMIDE 20 MG TABLET PO ONE (16:29)
[2017-10-16] MEDS: CEFDINIR 300 MG CAPSULE PO SCH (20:33)
[2017-10-16] MEDS: ROSUVASTATIN CALCIUM 10 MG TABLET PO SCH (20:33)
[2017-10-17 05:57] LABS: Hematocrit 40.3 % (37.0-47.0); Hemoglobin 13.4 gm/dL (12.5-16.0); Mean Cell Volume 85.6 fl (78-100); Mean Corpuscular Hemoglobin 28.5 pg (27-31); Mean Corpuscular Hgb Conc 33.3 g/dl (32-36); Mean Platelet Volume 10.3 fl (6.0-9.5); Neutrophil # 8.1 K/mm3 (1.3-6.0); Neutrophil % 80.4 % (42-75.0); Platelet Count 299 K/mm3 (150-450); Red Blood Count 4.71 M/mm3 (4.2-5.4); White Blood Count 10.1 K/mm3 (4.0-10.5)
[2017-10-17] MEDS: ALBUTEROL SULFATE/IPRATROPIUM 3 ML NEBU IH SCH ×2 (06:05→11:16)
[2017-10-17 06:21] LABS: Albumin * 3.3 gm/dl (3.4-5.0); Anion Gap 9.5 mmol/L (6.8-13.8); BUN/Creatinine Ratio 12.3 (9.0-21.6); Bilirubin, Total 0.3 mg/dL (0.0-1.1); Ca. Corrected For Albumin 9.4 mg/dL (8.4-10.2); Calcium * 9.2 mg/dL (7.9-10.9); Carbon Dioxide 29.6 mmol/L (24-32.6); Potassium 4.1 mmol/L (3.4-4.6); Total Protein 6.8 gm/dL (6.2-8.2)
[2017-10-17] MEDS: LEVOTHYROXINE SODIUM 25 MCG TABLET PO SCH (07:34)
[2017-10-17] MEDS: PANTOPRAZOLE SODIUM 40 MG TABLET.EC PO SCH (07:34)
[2017-10-17] MEDS: LORATADINE 10 MG TABLET PO SCH (08:44)
[2017-10-17] MEDS: AZITHROMYCIN 250 MG TABLET PO SCH (08:45)
[2017-10-17] MEDS: MAGNESIUM OXIDE 400 MG TABLET PO SCH (08:45)
[2017-10-17] MEDS: SACCHAROMYCES BOULARDII 250 MG CAPSULE PO SCH (08:45)
[2017-10-17] MEDS: predniSONE 20 MG TABLET PO SCH (08:45)
[2017-10-17] MEDS: CEFDINIR 300 MG CAPSULE PO SCH (08:45)
[2017-10-17] MEDS: NIFEdipine 30 MG TAB.SR.24H PO SCH (08:45)
[2017-10-17 10:12] VITALS: BP 138/75
--- NOTE | 2017-10-17 10:32 | DS ---
(1) Acute and chronic respiratory failure Problem: Resolved (2) Acute exacerbation of chronic obstructive pulmonary disease (COPD) Problem: Acute (3) Hyponatremia Problem: Resolved (4) Malnutrition Problem: Acute (5) Lower extremity edema Problem: Acute Description of Stay: Alba is an 87 yo female with chronic respiratory failure on a baseline of 2lpm. She was admitted with acute on chronic respiratory failure as she was 70% initially and required increase oxygen need to 3lpm to keep sats >90 % She was treated with breathing treatments, antibiotics, and steroid. Her oxygen was gradually weaned back to her baseline. She also had hyponatremia due to hypovolemia. This was corrected with fluid replacement and normalized. She was discharged to home. Procedures Performed: none Discharge Disposition: Home self care Disposition: Home self-care Condition: Stable Discharge Activity: Activity as tolerated Discharge Diet: General/regular food Referrals: Ria Schofield MD [Primary Care Provider] - One Week Problem Oriented Discharge Instructions to Patient/Family: Hyponatremia, Chronic Obstructive Pulmonary Disease, [id number] Additional Patient Instructions (free text): [facility]. Please fax orders upon discharge [phone]. [facility] will see you Saturday at 10-10:30am. Please call Gayatri @ [phone] prior to discharge. Thank you! (Possible CCM candidate) Follow up appointment with Edwin Arnett on 10/22/17 at 1:00pm. Oxygen 2lpm continuous. Prescriptions (Any new or edited meds): Azithromycin [Zithromax] 250 mg PO DAILY #3 tablet Benzonatate [Tessalon] 200 mg PO TID PRN #60 capsule PRN Reason: Cough Cefdinir [Omnicef] 300 mg PO BID #20 capsule Furosemide [Lasix] 20 mg PO DAILY PRN #30 tablet PRN Reason: leg swelling predniSONE [Prednisone] 40 mg PO DAILY #25 tablet Complete Home Medications List: Complete Home Medication List: Albuterol Sulfate [Ventolin Hfa] 1 puff IH DAILY 10/14/17 Atorvastatin Calcium 10 mg PO DAILY 10/14/17 Budesonide [Pulmicort Flexhaler] 180 mcg IH BID 10/14/17 Ergocalciferol (Vitamin D2) [Vitamin D2] 50,000 unit PO DAILY 10/14/17 Levothyroxine Sodium [Synthroid] 25 mcg PO DAILY 10/14/17 Loratadine 10 mg PO DAILY 10/14/17 Magnesium Oxide [Magnesium] 400 mg PO BID 10/14/17 NIFEdipine [Adalat cc] 60 mg PO DAILY 10/14/17 Pantoprazole Sodium 40 mg PO DAILY 10/14/17 Saccharomyces Boulardii [Florastor] 250 mg PO BID 10/14/17 Azithromycin [Zithromax] 250 mg PO DAILY #3 tablet 10/17/17 Benzonatate [Tessalon] 200 mg PO TID PRN #60 capsule 10/17/17 Cefdinir [Omnicef] 300 mg PO BID #20 capsule 10/17/17 Furosemide [Lasix] 20 mg PO DAILY PRN #30 tablet 10/17/17 predniSONE [Prednisone] 40 mg PO DAILY #25 tablet 10/17/17 Amb Orders for Discharge: Basic Metabolic Panel Time Frame: 10/21/17, Facility: [facility], Location: Laboratory
== END 2017-10-17 14:20 | disposition home health service (06) | DRG 189 ==
LOC: ER 08:14 → MS 10:43 → OBSVTOIN 12:45
PROVIDERS: ADMIT Family Medicine; ATTEND Family Medicine
PROC: 4A033R1 Measurement of Arterial Saturation, Peripheral, Percutaneous Approach (ICD-10-PCS; principal; 2017-10-14)
DX: J96.20 Acute and chronic respiratory failure, unspecified whether with hypoxia or hypercapnia (principal); J44.1 Chronic obstructive pulmonary disease with (acute) exacerbation; E87.1 Hypo-osmolality and hyponatremia; E46 Unspecified protein-calorie malnutrition; Z68.1 Body mass index [BMI] 19.9 or less, adult; J02.9 Acute pharyngitis, unspecified; R60.9 Edema, unspecified; I10 Essential (primary) hypertension; E03.9 Hypothyroidism, unspecified; I25.10 Atherosclerotic heart disease of native coronary artery without angina pectoris; Z99.81 Dependence on supplemental oxygen; Z87.891 Personal history of nicotine dependence

== ENCOUNTER 2018-10-27 21:51 | Observation (INO) ==
[2018-10-27 22:26] LABS: Urine Bilirubin Negative (NEGATIVE); Urine Blood Negative /ul (NEGATIVE); Urine Ketone 5 mg/dL (NEGATIVE); Urine Nitrite Negative (NEGATIVE); Urine Protein Negative (NEGATIVE); Urine Specific Gravity 1.025 SP.GR. (1.005-1.010); Urine Urobilinogen Normal (NORMAL); Urine pH 5.5 pH (5.0-7.0)
--- NOTE | 2018-10-27 22:35 | ERNOTE ---
Medical Problem HPI - Narrative Date of Service: 10/27/18 - generalized weakness - General Chief Complaint: General Assessment Time Seen by Provider: 10/28/18 00:49 Source: patient, family Exam Limitations: no limitations - Immun/Allergies/Home Medications Immunizations: IMMUNIZATION HX Immunizations Up to Date Yes History of Influenza Vaccine Yes Hx Pneumococcal Vaccination No Allergies/Adverse Reactions: Allergies aspirin Allergy (Verified 10/27/18 22:10) ciprofloxacin Allergy (Verified 10/27/18 22:10) codeine Allergy (Verified 10/27/18 22:10) levofloxacin Allergy (Verified 10/27/18 22:10) morphine Allergy (Verified 10/27/18 22:10) Sulfa (Sulfonamide Antibiotics) Allergy (Verified 10/27/18 22:10) amoxicillin trihydrate [From Augmentin] Adverse Reaction (Verified 10/27/18 22:10) cephalexin Adverse Reaction (Verified 10/27/18 22:10) potassium clavulanate [From Augmentin] Adverse Reaction (Verified 10/27/18 22:10) Home Medications: HOME MEDICATIONS RX: Atorvastatin Calcium 10 mg PO DAILY 10/14/17 [Last Taken Unknown] RX: Ergocalciferol (Vitamin D2) [Vitamin D2] 50,000 unit PO DAILY 10/14/17 [Last Taken Unknown] RX: Loratadine 10 mg PO DAILY 10/14/17 [Last Taken Unknown] RX: Pantoprazole Sodium 40 mg PO DAILY 10/14/17 [Last Taken Unknown] acetaminophen ER 650 mg tablet,extended release 650 mg PO Q8H PRN 05/13/18 [Last Taken Unknown] albuterol sulfate HFA 90 mcg/actuation aerosol inhaler 2 puff IH Q4H PRN 05/13/18 [Last Taken Unknown] dimethicone 1 % topical ointment % TP DAILY g 05/13/18 [Last Taken Unknown] pantoprazole 40 mg tablet,delayed release 40 mg PO DAILY 05/13/18 [Last Taken Unknown] polyethylene glycol 3350 17 gram/dose oral powder 17 g PO DAILY g 05/13/18 [Last Taken Unknown] sodium chloride 0.65 % nasal spray aerosol 1 spray WILIAN DAILY PRN ml 05/13/18 [Last Taken Unknown] umeclidinium 62.5 mcg-vilanterol 25 mcg/actuation powdr for inhalation 1 inh IH Q24H 05/13/18 [Last Taken Unknown] torsemide 20 mg tablet 20 mg PO DAILY 05/14/18 [Last Taken Unknown] nifedipine ER 60 mg tablet,extended release 60 mg PO DAILY #90 tab 05/27/18 [Last Taken Unknown] magnesium oxide 400 mg (241.3 mg magnesium) tablet 400 mg PO DAILY #90 tab 06/03/18 [Last Taken Unknown] Saccharomyces boulardii 250 mg capsule 250 mg PO BID #60 cap 07/08/18 [Last Taken Unknown] levothyroxine 88 mcg tablet 88 mcg PO DAILY #90 tab 08/13/18 [Last Taken Unknown] ipratropium-albuterol 0.5 mg-3 mg(2.5 mg base)/3 mL nebulization soln 3 ml IH QID PRN #3 ml 10/13/18 [Last Taken Unknown] Levofloxacin [Levaquin] 500 mg PO DAILY #10 tab 10/23/18 [Last Taken Unknown] RX: Azithromycin 250 mg PO DAILY 10/27/18 [Last Taken Unknown] [id number]/Sod Sulf,Bicarb,Cl/KCl [Golytely Solution] 4,000 ml PO ONCE #1 soln.recon 10/28/18 [Last Taken Unknown] - History of Present History Narrative: Patient is an 88 year old female, she has not had a bowel movement for the past week. She has been diagnosed with metastatic ovarian cancer, according to family. She is currently on levaquin for sinus infection. She has been eating ok, but is more weak. She is chronically on two liters of oxygen, and is requiring 3 liters lately. Denies chest pain, no nausea or vomiting. She states that she is more weak with activity. Date (Duration): 10/27/18 Time (Timing): 07:30 Timing: constant Severity: mild Modifying Factors - (Improves): Present: rest Modifying Factors - (Worsens): Present: cold therapy Review of Systems - Narrative Narrative: in general no acute distress - Review of Systems Constitutional: Present: recent illness, weakness, fatigue, malaise, decreased activity level. Absent: fever, chills, diaphoresis EYE: Present: no symptoms reported ENT: Present: nose congestion Respiratory: Present: shortness of breath Cardiology: Present: no symptoms reported Gastrointestinal/Abdominal: Present: constipation Genitourinary: Present: no symptoms reported Musculoskeletal: Present: no symptoms reported Skin: Present: no symptoms reported Neurological: Present: no symptoms reported Endocrine: Present: no symptoms reported Hematologic/Lymphatic: Present: no symptoms reported Psych: Present: no symptoms reported Medical History (Last Reviewed 10/27/18 @ 22:34 by Nella Rosales MD) Carcinoma of ovary, stage 4 Arthritis Onset Date: Unknown CHF (congestive heart failure) Onset Date: ~01/15/18 COPD (chronic obstructive pulmonary disease) Onset Date: ~11/19/13 Hypertension Onset Date: Unknown Hypothyroidism Onset Date: ~10/20/15 Peptic ulcer Onset Date: Unknown Peripheral edema Onset Date: ~01/15/18 Surgical History: Surgical History (Last Reviewed 10/27/18 @ 22:34 by Nella Rosales MD) History of cholecystectomy Onset Date: Unknown History of gastric surgery Onset Date: Unknown History of total abdominal hysterectomy and bilateral salpingo-oophorectomy Onset Date: Unknown Family History: Family History (Last Reviewed 10/27/18 @ 22:34 by Nella Rosales MD) Father CAD (coronary artery disease) Mother CAD (coronary artery disease) Diabetes Social History: Preferred Language Nepali Smoking Status Former smoker Abuse History No History of abuse Psych History No pertinent hx Alcohol Use none Drug Use none (Last Updated 10/15/18 @ 11:45 by Ria Schofield MD) No Social History Section defined Physical Exam - Physical Exam General Appearance: Present: wd/wn, alert, no apparent distress Head Exam: Present: normal inspection, no evidence of injury Eye Exam: Normal inspection: bilateral, PERRL: bilateral, EOMI: bilateral Ears, Nose, Throat: Present: normal ENT inspection, normal pharynx Neck: Present: normal inspection, nontender Respiratory: Present: no respiratory distress, no accessory muscle use, chest nontender, crackles Cardiovascular/Chest: Present: regular rate, rhythm, normal peripheral pulses, systolic murmur Peripheral Pulses: N=norm/S=strong/W=weak/B=bound/A=absent: Carotid (R): Normal, Carotid (L): Normal, Radial (R): Normal, Radial (L): Normal Gastrointestinal/Abdominal: Present: normal bowel sounds, nontender, nondistended, soft, no organomegaly Back Exam: Present: normal inspection, normal range of motion, no CVA tenderness, no vertebral tenderness Extremity Exam: Present: normal inspection, non-tender, normal range of motion, no edema Neurological Exam: Present: alert, oriented, normal mood/affect, no motor /sensory deficits Skin Exam: Present: normal color, warm/dry Lymphatic Exam: Present: no adenopathy Progress - Results and Orders Patient's Lab Results:: I have reviewed the patient's lab results. - Vital Signs Patient's Vital Signs:: I have reviewed the patient's vital signs. Vital Signs: Vital Signs 10/27/18 22:02 Temperature 36.9 C Pulse Rate 87 Respiratory Rate 16 Blood Pressure 118/55 O2 Sat by Pulse Oximetry 95 - X-Ray X-Ray #1 X-Ray: abdomen - cxr abdomen constipation, no acute changes Interpretation: Interp. by me - Progress/Reassessment Chief Complaint: General Assessment Progress:: Re-examined - Transfer of Care Additional Notes: offered admission for weakness, discussed possible etiologies, patient is constipated also. Family would rather take Alba home. Alba does not wish to stay in the hospital. Plan - Plan Plan: admitted to Dr. Perez, weakness failure to thrive Departure Clinical Impression: Edema extremities, Mild dehydration - Departure Disposition: Short Term Hospital Inpatient Condition: Good Prescriptions: [id number]/Sod Sulf,Bicarb,Cl/KCl [Golytely Solution] 4,000 ml PO ONCE #1 soln.recon
[2018-10-27 22:38] LABS: Urine Amorphous Sediment Moderate - 2+ (NONE-FEW); Urine Appearance Slightly Cloudy (CLEAR); Urine Bacteria TRACE; Urine Color Yellow; Urine RBC None Seen /hpf (0-5); Urine WBC None Seen /hpf (0-5)
[2018-10-27 22:52] LABS: Hematocrit 32.5 % (37.0-47.0); Hemoglobin 10.3 gm/dL (12.5-16.0); Mean Cell Volume 97.3 fl (78-100); Mean Corpuscular Hemoglobin 30.8 pg (27-31); Mean Corpuscular Hgb Conc 31.7 g/dl (32-36); Mean Platelet Volume 10.8 fl (8-12.5); Neutrophil # 5.7 K/mm3 (1.3-6.0); Neutrophil % 82.3 % (42-75.0); Platelet Count 279 K/mm3 (150-450); Red Blood Count 3.34 M/mm3 (4.2-5.4); Red Cell Distribution Width 13.5 % (11.5-14.0)
[2018-10-27 23:21] LABS: Albumin * 2.8 gm/dl (3.4-5.0); Anion Gap 13.7 mmol/L (6.8-13.8); BUN/Creatinine Ratio 39.2 (9.0-21.6); Bilirubin, Total 0.2 mg/dL (0.0-1.1); Ca. Corrected For Albumin 9.3 mg/dL (8.4-10.2); Calcium * 8.7 mg/dL (7.9-10.9); Carbon Dioxide 30.7 mmol/L (24-32.6); Potassium 4.4 mmol/L (3.4-4.6); Total Protein 6.1 gm/dL (6.2-8.2)
[2018-10-28] MEDS ORDERED: SODIUM CHLORIDE 45 SPRAY BTL NS PRN (05:00)
[2018-10-28] MEDS ORDERED: ALBUTEROL SULFATE/IPRATROPIUM 3 ML NEBU IH PRN (05:00)
[2018-10-28] MEDS ORDERED: ALBUTEROL SULFATE 200 PUFF INHALER IH PRN (05:00)
[2018-10-28] MEDS ORDERED: ALBUTEROL SULFATE 2.5 MG/0.5 ML VIAL.NEB IH PRN (07:15)
[2018-10-28] MEDS: LEVOTHYROXINE SODIUM 88 MCG TABLET PO SCH (09:48)
[2018-10-28] MEDS: TORSEMIDE 20 MG TABLET PO SCH (09:48)
[2018-10-28] MEDS: NIFEdipine 30 MG TAB.SR.24H PO SCH (09:48)
[2018-10-28] MEDS: POLYETHYLENE GLYCOL 3350 119 GM BTL PO SCH (09:49)
[2018-10-28] MEDS: Umeclidinium Brm/Vilanterol Tr [Anoro Ellipta 62.5-25 Mcg Inh IH SCH (09:49)
[2018-10-28] MEDS: SACCHAROMYCES BOULARDII 250 MG CAPSULE PO SCH ×2 (09:49→21:10)
--- NOTE | 2018-10-28 09:58 | HP ---
Chief Complaint - Chief Complaint Date of Service: 10/28/18 Time of Service: 09:47 Chief Complaint: weakness History of Present Illness: Patient with PMHx of recently diagnosed endometrial cancer, HTN, COPD on 2-3 L O2, CHF, Pulmonary HTN, and chronic sinusitis presented to the ED with increased weakness. She was seen in the ED for sinusitis recently, and given levaquin, which has caused her to have weakness in the past. She has no sinus pressure currently, and does not think she's had a fever. She's had some throat burning, which she feels like is secondary to reflux. She also reports having some problems with constipation. Has not had much of a bowel movement in 5 days. She denies chest pain, increased oxygen requirements, increased shortness of breath, urinary complaints, current lower extremity swelling. Medical History (Last Reviewed 10/28/18 @ 01:48 by Daisy Arriaza RN) Carcinoma of ovary, stage 4 Arthritis Onset Date: Unknown CHF (congestive heart failure) Onset Date: ~01/15/18 COPD (chronic obstructive pulmonary disease) Onset Date: ~11/19/13 Hypertension Onset Date: Unknown Hypothyroidism Onset Date: ~10/20/15 Peptic ulcer Onset Date: Unknown Peripheral edema Onset Date: ~01/15/18 Surgical History: Surgical History (Last Reviewed 10/28/18 @ 01:48 by Daisy Arriaza RN) History of cholecystectomy Onset Date: Unknown History of gastric surgery Onset Date: Unknown History of total abdominal hysterectomy and bilateral salpingo-oophorectomy Onset Date: Unknown Family History: Family History (Last Reviewed 10/28/18 @ 01:48 by Daisy Arriaza RN) Father CAD (coronary artery disease) Mother CAD (coronary artery disease) Diabetes Social History: Patient Lives/Resources Home Utilized Occupation retired Preferred Language Faroese Do you have any synagogue or No cultural preference? Smoking Status Former smoker Have you smoked in the past 12 No months Do you dip or chew tobacco No Abuse History No History of abuse Psych History No pertinent hx Alcohol Use none Drug Use none (Last Updated 10/15/18 @ 11:45 by Ria Schofield MD) No Social History Section defined Review Of Systems (GEN) - Review of Systems Generalized/Overall Review: Present: Weakness, Weight loss - has been losing weight for months EENTM: Present: Other - burning sensation in throat Respiratory: Absent: Cough, Shortness of Breath, Wheezing Cardiac: Present: Edema - feels like her fluid pills are not always helpful. Absent: Chest Pain Abdominal: Present: Constipation. Absent: Vomiting, Bright blood from rectum Genitourinary: Absent: Dysuria Immunizations: IMMUNIZATION HX Immunizations Up to Date Yes History of Influenza Vaccine Yes Hx Pneumococcal Vaccination No Allergies/Adverse Reactions: Allergies Allergy/AdvReac Type Severity Reaction Status Date / Time aspirin Allergy Verified 10/27/18 22:10 ciprofloxacin Allergy Verified 10/27/18 22:10 codeine Allergy Verified 10/27/18 22:10 levofloxacin Allergy Verified 10/27/18 22:10 morphine Allergy Verified 10/27/18 22:10 Sulfa (Sulfonamide Allergy Verified 10/27/18 22:10 Antibiotics) amoxicillin trihydrate AdvReac Verified 10/27/18 22:10 [From Augmentin] cephalexin AdvReac Verified 10/27/18 22:10 potassium clavulanate AdvReac Verified 10/27/18 22:10 [From Augmentin] Home Medications: HOME MEDICATIONS Atorvastatin Calcium 10 mg PO DAILY 10/14/17 [Last Taken 10/27/18 07:00] Ergocalciferol (Vitamin D2) [Vitamin D2] 50,000 unit PO DAILY 10/14/17 [Last Taken 10/27/18 07:00] Loratadine 10 mg PO DAILY 10/14/17 [Last Taken 10/27/18 07:00] acetaminophen ER 650 mg tablet,extended release 650 mg PO Q8H PRN 05/13/18 [Last Taken Unknown] albuterol sulfate HFA 90 mcg/actuation aerosol inhaler 2 puff IH Q4H PRN 05/13/18 [Last Taken Unknown] dimethicone 1 % topical ointment % TP DAILY g 05/13/18 [Last Taken Unknown] pantoprazole 40 mg tablet,delayed release 40 mg PO DAILY 05/13/18 [Last Taken 10/27/18 07:00] polyethylene glycol 3350 17 gram/dose oral powder 17 g PO DAILY g 05/13/18 [Last Taken 10/27/18 07:00] sodium chloride 0.65 % nasal spray aerosol 1 spray WILIAN DAILY PRN ml 05/13/18 [Last Taken Unknown] umeclidinium 62.5 mcg-vilanterol 25 mcg/actuation powdr for inhalation 1 inh IH Q24H 05/13/18 [Last Taken 10/27/18 07:00] torsemide 20 mg tablet 20 mg PO DAILY 05/14/18 [Last Taken 10/27/18 07:00] nifedipine ER 60 mg tablet,extended release 60 mg PO DAILY #90 tab 05/27/18 [Last Taken 10/27/18 07:00] magnesium oxide 400 mg (241.3 mg magnesium) tablet 400 mg PO DAILY #90 tab 06/03/18 [Last Taken 10/27/18 07:00] Saccharomyces boulardii 250 mg capsule 250 mg PO BID #60 cap 07/08/18 [Last Taken 10/27/18 07:00] levothyroxine 88 mcg tablet 88 mcg PO DAILY #90 tab 08/13/18 [Last Taken 10/27/18 07:00] ipratropium-albuterol 0.5 mg-3 mg(2.5 mg base)/3 mL nebulization soln 3 ml IH QID PRN #3 ml 10/13/18 [Last Taken Unknown] Levofloxacin [Levaquin] 500 mg PO DAILY #10 tab 10/23/18 [Last Taken 10/27/18 17:00] Azithromycin 250 mg PO DAILY 10/27/18 [Last Taken 10/27/18 07:00] Zem2018/Sod Sulf,Bicarb,Cl/KCl [Golytely Solution] 4,000 ml PO ONCE #1 soln.recon 10/28/18 [Last Taken Unknown] Exam - Exam Vital Signs: Vital Signs - Last Taken Temp 36.4 C 10/28/18 08:03 Pulse 85 10/28/18 08:03 Resp 16 10/28/18 08:03 BP 113/52 10/28/18 08:03 Pulse Ox 24 L 10/28/18 08:03 Constitutional: Present: Alert, Oriented x3, Cooperative, No distress, Thin and frail ENT Exam: Present: dry mucous membranes. Absent: pharyngeal erythema Neck: Absent: lymphadenopathy (R), lymphadenopathy (L) Respiratory: Present: normal breath sounds, no respiratory distress, No wheezing Cardiovascular/Chest: Present: systolic murmur. Absent: edema Abdomen: Present: distended. Absent: firm Extremity: Absent: lower extremity edema Eye contact: Present: cooperative, good eye contact Thoughts: Present: normal thought pattern Diagnostic Studies: Abnormal Lab Results 10/27/18 10/27/18 10/27/18 Range/Units 22:22 22:44 22:44 RBC 3.34 L (4.2-5.4) M/mm3 Hgb 10.3 L (12.5-16.0) gm/dL Hct 32.5 L (37.0-47.0) % MCHC 31.7 L (32-36) g/dl Immature Gran % (Auto) 0.60 H (0.001-0.429) % Immature Gran # (Auto) 0.04 H (0.000-0.0310) K/mm3 Neutrophils % 82.3 H (42-75.0) % Lymphocytes % 8.3 L (20-51) % Lymphocytes # 0.58 L (1.5-3.5) k/mm3 BUN 71 H (3-23) mg/dL Creatinine 1.81 H (0.4-1.4) mg/dL Est GFR (Non-Af Amer) 28 L (60-130) mL/min BUN/Creatinine Ratio 39.2 H (9.0-21.6) AST 61 H (0-48) U/L ALT 17 L (19-67) U/L Total Protein 6.1 L (6.2-8.2) gm/dL Albumin 2.8 L (3.4-5.0) gm/dl Amorphous Sediment Moderate - 2+ H (NONE-FEW) Laboratory Results WBC 7.0 K/mm3 (4.0-10.5) 10/27/18 22:44 RBC 3.34 M/mm3 (4.2-5.4) L 10/27/18 22:44 Hgb 10.3 gm/dL (12.5-16.0) L 10/27/18 22:44 Hct 32.5 % (37.0-47.0) L 10/27/18 22:44 MCV 97.3 fl (78-100) 10/27/18 22:44 MCH 30.8 pg (27-31) 10/27/18 22:44 MCHC 31.7 g/dl (32-36) L 10/27/18 22:44 RDW 13.5 % (11.5-14.0) 10/27/18 22:44 Plt Count 279 K/mm3 (150-450) 10/27/18 22:44 MPV 10.8 fl (8-12.5) 10/27/18 22:44 Immature Gran % (Auto) 0.60 % (0.001-0.429) H 10/27/18 22:44 Immature Gran # (Auto) 0.04 K/mm3 (0.000-0.0310) H 10/27/18 22:44 Neutrophils % 82.3 % (42-75.0) H 10/27/18 22:44 Lymphocytes % 8.3 % (20-51) L 10/27/18 22:44 Monocytes % 8.0 % (0.0-9) 10/27/18 22:44 Eosinophils % 0.4 % (0.0-3.0) 10/27/18 22:44 Basophils % 0.4 % (0.0-1.0) 10/27/18 22:44 Nucleated RBC % 0.0 k/mm3 (0-1) 10/27/18 22:44 Neutrophils # 5.7 K/mm3 (1.3-6.0) 10/27/18 22:44 Lymphocytes # 0.58 k/mm3 (1.5-3.5) L 10/27/18 22:44 Monocytes # 0.6 k/mm3 (0.0-1.0) 10/27/18 22:44 Eosinophils # 0.0 k/mm3 (0.0-0.7) 10/27/18 22:44 Absolute Basophils 0.0 k/mm3 (0.0-0.1) 10/27/18 22:44 Sodium 140 mmol/L (132-142) 10/27/18 22:44 Plasma Sodium 140 mmol/L (130-142) 10/27/18 22:44 Potassium 4.4 mmol/L (3.4-4.6) 10/27/18 22:44 Chloride 100 mmol/L (97-106) 10/27/18 22:44 Carbon Dioxide 30.7 mmol/L (24-32.6) 10/27/18 22:44 Anion Gap 13.7 mmol/L (6.8-13.8) 10/27/18 22:44 BUN 71 mg/dL (3-23) H 10/27/18 22:44 Creatinine 1.81 mg/dL (0.4-1.4) H 10/27/18 22:44 Est GFR (Non-Af Amer) 28 mL/min (60-130) L 10/27/18 22:44 BUN/Creatinine Ratio 39.2 (9.0-21.6) H 10/27/18 22:44 Random Glucose 92 mg/dL (70-110) 10/27/18 22:44 Calcium 8.7 mg/dL (7.9-10.9) 10/27/18 22:44 Calcium Adj for Albumin 9.3 mg/dL (8.4-10.2) 10/27/18 22:44 Total Bilirubin 0.2 mg/dL (0.0-1.1) 10/27/18 22:44 AST 61 U/L (0-48) H 10/27/18 22:44 ALT 17 U/L (19-67) L 10/27/18 22:44 Alkaline Phosphatase 105 U/L (50-170) 10/27/18 22:44 Total Protein 6.1 gm/dL (6.2-8.2) L 10/27/18 22:44 Albumin 2.8 gm/dl (3.4-5.0) L 10/27/18 22:44 Lipase 108 U/L (73-393) 10/27/18 22:44 Urine Color Yellow 10/27/18 22:22 Urine Appearance Slightly cloudy (CLEAR) 10/27/18 22:22 Urine pH 5.5 pH (5.0-7.0) 10/27/18 22:22 Ur Specific [place] 1.025 SP.GR. (1.005-1.010) 10/27/18 22:22 Urine Protein Negative mg/dL (NEGATIVE) 10/27/18 22:22 Urine Glucose (UA) Negative mg/dL (NEGATIVE) 10/27/18 22:22 Urine Ketones 5 mg/dL (NEGATIVE) 10/27/18 22:22 Urine Blood Negative /ul (NEGATIVE) 10/27/18 22:22 Urine Nitrate Negative (NEGATIVE) 10/27/18 22:22 Urine Bilirubin Negative mg/dl (NEGATIVE) 10/27/18 22:22 Urine Urobilinogen Normal EU/dl (NORMAL) 10/27/18 22:22 Ur Leukocyte Esterase Negative /ul (NEGATIVE) 10/27/18 22:22 Urine RBC None seen /hpf (0-5) 10/27/18 22:22 Urine WBC None seen /hpf (0-5) 10/27/18 22:22 Ur Epithelial Cells None seen /hpf (0-5) 10/27/18 22:22 Amorphous Sediment Moderate - 2+ (NONE-FEW) H 10/27/18 22:22 Urine Bacteria Trace (NONE) 10/27/18 22:22 Urine Culture Comments Culture to follow 10/27/18 22:22 Assessment/Plan - Assessment/Plan (1) Acute weakness Assessment: May be secondary to the levaquin. However, she also has a diagnosis of metastatic ovarian adenocarcinoma, and has been losing weight. Her albumin is only 2.8, indicating some malnutrition. Will add ensure to meals, and ask PT to evaluate her tomorrow. She wishes to go home after discharge. Problem: Acute (2) Elevated serum creatinine Assessment: Creatinine 1.81 GFR of 28 on admission. Her creatinine is normally not elevated. With her history of CHF, will encourage po fluids. She reports being too weak lately to ambulate between rooms at her house, so her po intake was decreased. Recheck in am. Problem: Acute (3) Hypoalbuminemia Assessment: Ensure with meals. Problem: Acute (4) Ovarian cancer Assessment: She is unaware of her prognosis. Will need to search through her clinic chart for oncology notes. She has been losing weight, however, indicating her prognosis is likely poor. Problem: Acute (5) Acid reflux Assessment: Will hold her home protonix, and administer via IV. Chart review shows ulcers in the past. Problem: Acute
[2018-10-28] MEDS ORDERED: PANTOPRAZOLE SODIUM 40 MG in NORMAL SALINE 100 ML IV ONE (10:07)
[2018-10-28] MEDS ORDERED: IBUPROFEN 400 MG TABLET PO PRN (19:56)
[2018-10-28] MEDS ORDERED: LIDOCAINE 1 PATCH ADH..PATCH TP ONE (20:46)
[2018-10-28] MEDS: LIDOCAINE 1 PATCH ADH..PATCH TP ONE (21:10)
[2018-10-28] MEDS: ACETAMINOPHEN 325 MG TABLET PO PRN (21:10)
[2018-10-29] MEDS: ACETAMINOPHEN 325 MG TABLET PO PRN (03:07)
[2018-10-29 05:24] LABS: Anion Gap 11.2 mmol/L (6.8-13.8); BUN/Creatinine Ratio 39.5 (9.0-21.6); Calcium * 8.5 mg/dL (7.9-10.9); Carbon Dioxide 32.2 mmol/L (24-32.6); Estimated Creat Clear 24.1; Potassium 4.4 mmol/L (3.4-4.6)
[2018-10-29] MEDS: LEVOTHYROXINE SODIUM 88 MCG TABLET PO SCH (06:38)
[2018-10-29] MEDS: TORSEMIDE 20 MG TABLET PO SCH (08:48)
[2018-10-29] MEDS: SACCHAROMYCES BOULARDII 250 MG CAPSULE PO SCH ×2 (08:48→23:50)
[2018-10-29] MEDS: NIFEdipine 30 MG TAB.SR.24H PO SCH (08:48)
[2018-10-29] MEDS: POLYETHYLENE GLYCOL 3350 119 GM BTL PO SCH ×2 (08:48→23:50)
[2018-10-29] MEDS: Umeclidinium Brm/Vilanterol Tr [Anoro Ellipta 62.5-25 Mcg Inh IH SCH (08:49)
[2018-10-29] MEDS ORDERED: BISACODYL 10 MG SUPP.RECT RC ONE (12:45)
[2018-10-29] MEDS ORDERED: SENNOSIDES/DOCUSATE SODIUM 1 TAB TABLET PO PRN (12:50)
--- NOTE | 2018-10-29 12:58 | PN ---
Subjective - Date and Time Seen Date: 10/29/18 Time: 12:39 Subjective Narrative: Patient reports feeling similar to yesterday, and still feels like she needs to move her bowels. Is only able to have small BMs at a time. No significant change in her weakness. Objective - Review of Systems Generalized/Overall Review: Reports: Weakness. Denies: Fever Respiratory: Denies: Cough, Shortness of Breath Cardiac: Denies: Chest Pain, Edema Abdominal: Reports: Constipation. Denies: Vomiting Genitourinary Symptoms: Denies: Dysuria - Vitals Vitals: Last Vital Signs Temp 36.6 C 10/29/18 10:45 Pulse 82 10/29/18 10:45 Resp 18 10/29/18 10:45 BP 137/69 10/29/18 10:45 Pulse Ox 100 10/29/18 10:45 - Abnormal Lab Findings Abnormal Lab Findings: Abnormal Lab Results 10/29/18 Range/Units 05:05 BUN 62 H (3-23) mg/dL Creatinine 1.57 H (0.4-1.4) mg/dL Est GFR (Non-Af Amer) 33 L (60-130) mL/min BUN/Creatinine Ratio 39.5 H (9.0-21.6) - Exam Constitutional: Present: Alert, Oriented x3, Cooperative, No distress, Thin and frail Respiratory: Present: normal breath sounds, no respiratory distress, no accessor y muscle use Cardiovascular/Chest: Present: regular rate, rhythm Abdomen: Present: Normal bowel sounds, tender, firm Extremity: Absent: lower extremity edema Eye contact: Present: cooperative Assessment/Plan - Problems/Diagnosis (1) Acute weakness Problem: Acute Narrative: Awaiting report from PT. If she can ambulate to the bathroom with a walker, she can DC, potentially later today. She stated she would prefer to go home after discharge. (2) Elevated serum creatinine Problem: Acute Narrative: Improving, but still elevated from baseline. It is felt that her acute renal injury is secondary to decreased po intake, since she was too weak to ambulate in her home. (3) Constipation Problem: Acute Narrative: Her extensive cancer burden in her abdomen and pelvis is likely contributing. She may have cancerous masses that are restricting the diameter of her colon. Will need to keep her bowels soft to facilitate passing of BMs. Continue daily miralax, and dulcolax. Will add senna. If her cancer burden increases to the point where she can not have bowel movements, may need to explore surgical options to prevent obstipation. (4) Hypoalbuminemia Problem: Acute Narrative: Secondary to reduced intake. She stated she can not tolerate ensure because it causes stomach upset and diarrhea. She does not think she could tolerate boost, either. 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 It was felt she would not tolerate chemotherapy due to her comorbidities. She and her daughter were not aware of this diagnosis, which was relayed to them, and a copy of that report from the [facility] was given to her daughter. With her recent weight loss, hospice services are appropriate. Per the report from the [facility], they declined hospice last month. Since they were unaware of the extent of her cancer, and the news was upsetting, will not have the hospice conversation today. (6) Acid reflux Problem: Acute Narrative: continue IV protonix
[2018-10-29] MEDS ORDERED: SUCRALFATE 1 G/10 ML UDC PO ONE (13:56)
--- NOTE | 2018-10-29 15:31 | PN ---
Yamini Note - Interim Date: 10/29/18 Time: 15:28 Narrative: 10/29/18 15:28 Spoke with patient's family, who has significant concerns about her constipation. She is extremely uncomfortable, and abdominal bloating has increased since this morning. No results from dulcolax suppository, so will administer fleets enema. Will not send her home with this level of pain. Continues to have acid reflux without improvement from liquid carafate. Continue daily IV protonix.
[2018-10-29] MEDS: PANTOPRAZOLE SODIUM 40 MG in NORMAL SALINE 100 ML IV SCH (15:48)
[2018-10-29] MEDS ORDERED: HYDROcodone/ACETAMINOPHEN 1 EACH TABLET PO PRN (19:46)
[2018-10-29] MEDS ORDERED: LORazepam 2 MG/ML DISP.SYRIN IV PRN (19:48)
[2018-10-29] MEDS ORDERED: MAG HYDROX/ALUMINUM HYD/SIMETH 30 ML UDC PO PRN (19:49)
[2018-10-29] MEDS ORDERED: LIDOCAINE HCL 20 ML UDC MM ONE (19:49)
[2018-10-29] MEDS: ONDANSETRON HCL/PF 2 MG/ML VIAL IV PRN (19:58)
[2018-10-29] MEDS ORDERED: RANITIDINE HCL 15 MG/ML BTL PO SCH (21:00)
[2018-10-29] MEDS: LIDOCAINE 1 PATCH ADH..PATCH TP ONE (23:51)
[2018-10-29] MEDS ORDERED: LIDOCAINE HCL 20 ML UDC ONE (23:57)
[2018-10-30] MEDS: ONDANSETRON HCL/PF 2 MG/ML VIAL IV PRN (03:10)
[2018-10-30] MEDS ORDERED: NORMAL SALINE 1,000 ML IV PRN (04:56)
[2018-10-30] MEDS: LEVOTHYROXINE SODIUM 88 MCG TABLET PO SCH (06:31)
[2018-10-30] MEDS ORDERED: FAMOTIDINE 20 MG TABLET PO SCH (09:00)
--- NOTE | 2018-10-30 09:12 | PN ---
Subjective - Date and Time Seen Date: 10/30/18 Time: 08:57 Subjective Narrative: Patient had significant abdominal pain yesterday and was given multiple agents for constipation and "throat burning." Ativan was added for anxiety. This morning, she is resting without family present, but feels too weak to move. PT note stated she coughed dark black mucus, so there is now some concern for GI bleed. Objective - Review of Systems Generalized/Overall Review: Reports: Malaise, Fatigue Respiratory: Denies: Cough Cardiac: Denies: Chest Pain Abdominal: Reports: Vomiting, Constipation - Vitals Vitals: Last Vital Signs Temp 36.7 C 10/30/18 06:55 Pulse 89 10/30/18 06:55 Resp 18 10/30/18 06:55 BP 96/45 10/30/18 06:55 Pulse Ox 87 L 10/30/18 06:55 - Exam Constitutional: Present: Somnolent, Thin and frail Respiratory: Present: normal breath sounds, no respiratory distress Cardiovascular/Chest: Present: regular rate, rhythm Abdomen: Present: soft, tender, distended Extremity: Present: lower extremity edema - 1+ to mid lower leg Assessment/Plan - Problems/Diagnosis (1) Acute weakness Problem: Acute Narrative: Not improving. CBC pending, as her Hgb was 10.3 on admission, and worsening anemia would explain her weakness. She also has extensive ovarian metastatic cancer and has been losing weight, which is strong likely source of her weakness. Will need to again discuss hospice with her family. (2) Anemia Problem: Acute Narrative: Normocytic. CBC pending for today. Admission hgb was 10.3. Ddx includes chronic disease, iron deficiency. PT note just mentioned her coughing up black mucus, so GI bleed also added to differential. (3) Hypotension Problem: Acute Narrative: Her latest BP this morning is 96/45. She can not tolerate increased IV fluids due to her CHF. Last received ativan yesterday evening, so her hypotension is likely not related. This may be secondary to her stage IV ovarian cancer. Will need to have hospice discussions with family. (4) Elevated serum creatinine Problem: Acute (5) Constipation Problem: Acute Narrative: Per nursing staff, she had a large BM yesterday afternoon. She has had chronic constipation, and was prescribed miralax bid, but was only taking it once a day because she didn't want to have bowel incontinence. Continue bid miralax, dulcolax suppository, and senna. (6) Hypoalbuminemia Problem: Acute (7) Ovarian cancer Problem: Acute Narrative: Extensive, metastatic. Will approach hospice discussions with family again today. Her BP is decreased today. Fluids given overnight because her po intake was decreased, and stopped this morning to avoid fluid overload. (8) Acid reflux Problem: Acute Narrative: She had significant problems with throat burning yesterday evening. No improvement with one dose of carafate yesterday. Added famotidine to her protonix, maalox, and viscous lidocaine. (9) GI bleed Problem: Suspected (10) COPD (chronic obstructive pulmonary disease) Problem: Chronic Narrative: She uses 2 L at baseline, and 3L with activity. Her oxygenation has decreased overnight, so will increase oxygen as needed to keep her greater than 90%.
[2018-10-30 09:30] LABS: Hematocrit 32.7 % (37.0-47.0); Mean Cell Volume 99.1 fl (78-100); Mean Corpuscular Hemoglobin 30.3 pg (27-31); Mean Corpuscular Hgb Conc 30.6 g/dl (32-36); Neutrophil # 7.9 K/mm3 (1.3-6.0); Neutrophil % 86.9 % (42-75.0); Platelet Count 242 K/mm3 (150-450); Red Cell Distribution Width 13.8 % (11.5-14.0); White Blood Count 9.1 K/mm3 (4.0-10.5)
[2018-10-30] MEDS: NIFEdipine 30 MG TAB.SR.24H PO SCH (10:07)
[2018-10-30] MEDS: SACCHAROMYCES BOULARDII 250 MG CAPSULE PO SCH (10:07)
[2018-10-30] MEDS: POLYETHYLENE GLYCOL 3350 119 GM BTL PO SCH (10:11)
[2018-10-30] MEDS: Umeclidinium Brm/Vilanterol Tr [Anoro Ellipta 62.5-25 Mcg Inh IH SCH (10:11)
[2018-10-30] MEDS: TORSEMIDE 20 MG TABLET PO SCH (10:13)
[2018-10-30] MEDS ORDERED: ONDANSETRON HCL/PF 2 MG/ML VIAL IV PRN (11:21)
--- NOTE | 2018-10-30 11:27 | PN ---
Progess Note - Interim Date: 10/30/18 Time: 11:22 Narrative: 10/30/18 11:22 Patient's BP and oxygenation have decreased. Hgb has not changed. Still has profound weakness, felt to be secondary to her cancer. Family has agreed to pursue hospice benefits at home.
[2018-10-30 14:28] VITALS: BP 83/40
[2018-10-30] MEDS: PANTOPRAZOLE SODIUM 40 MG in NORMAL SALINE 100 ML IV SCH (15:09)
--- NOTE | 2018-10-30 15:51 | DS ---
(1) Ovarian cancer Problem: Acute (2) Acute weakness Problem: Acute (3) Anemia Problem: Acute (4) Hypotension Problem: Acute (5) Elevated serum creatinine Problem: Acute (6) Constipation Problem: Acute (7) Hypoalbuminemia Problem: Acute (8) Acid reflux Problem: Acute (9) GI bleed Problem: Suspected (10) COPD (chronic obstructive pulmonary disease) Problem: Chronic Description of Stay: Patient with PMHx of metastatic ovarian cancer with carcinomatosis was admitted for worsening weakness, acute renal injury, anemia, and constipation. She did not improve after admission. Chart review showed extensive cancer of which she or her family were unaware, and this news was relayed to them. She had significant pain on the evening of 10/29 due to constipation, and also had a sensation of burning in her throat that was difficult to control. She started coughing up dark mucous, and GI bleed was suspected. Hgb stayed stable around 10.3. Her BP decreased on the morning of 10/30, and IV fluids were briefly started, but she almost immediately started developing edema. Her oxygenation requirements increased also. Discussed were had with family, and the decision was made to pursue comfort measures only. She was referred to [facility]. With her BP and decreased oxygenation, it is possible she may pass in the next 24 hours, so she will be admitted for inpatient hospice. Procedures Performed: none Results and Findings: Lab Pending Results 10/27/18 22:22: Urine Color Yellow, Urine Appearance Slightly cloudy, Urine pH 5.5, Ur Specific [place] 1.025, Urine Protein Negative, Urine Glucose (UA) Negative, Urine Ketones 5, Urine Blood Negative, Urine Nitrate Negative, Urine Bilirubin Negative, Urine Urobilinogen Normal, Ur Leukocyte Esterase Negative, Urine RBC None seen, Urine WBC None seen, Ur Epithelial Cells None seen, Amorphous Sediment Moderate - 2+ H, Urine Bacteria Trace, Urine Culture Comments Culture to follow 10/27/18 22:44: WBC 7.0, RBC 3.34 L, Hgb 10.3 L, Hct 32.5 L, MCV 97.3, MCH 30.8, MCHC 31.7 L, RDW 13.5, Plt Count 279, MPV 10.8, Immature Gran % (Auto) 0.60 H, Immature Gran # (Auto) 0.04 H, Neutrophils % 82.3 H, Lymphocytes % 8.3 L, Monocytes % 8.0, Eosinophils % 0.4, Basophils % 0.4, Nucleated RBC % 0.0, Neutrophils # 5.7, Lymphocytes # 0.58 L, Monocytes # 0.6, Eosinophils # 0.0, Absolute Basophils 0.0 10/27/18 22:44: Sodium 140, Plasma Sodium 140, Potassium 4.4, Chloride 100, Carbon Dioxide 30.7, Anion Gap 13.7, BUN 71 H, Creatinine 1.81 H, Est GFR (Non- Af Amer) 28 L, BUN/Creatinine Ratio 39.2 H, Random Glucose 92, Calcium 8.7, Calcium Adj for Albumin 9.3, Total Bilirubin 0.2, AST 61 H, ALT 17 L, Alkaline Phosphatase 105, Total Protein 6.1 L, Albumin 2.8 L, Lipase 108 10/29/18 05:05: Sodium 141, Plasma Sodium 141, Potassium 4.4, Chloride 102, Carbon Dioxide 32.2, Anion Gap 11.2, BUN 62 H, Creatinine 1.57 H, Est GFR (Non- Af Amer) 33 L, BUN/Creatinine Ratio 39.5 H, Random Glucose 79, Calcium 8.5 10/30/18 08:59: WBC 9.1 D, RBC 3.30 L, Hgb 10.0 L, Hct 32.7 L, MCV 99.1, MCH 30.3, MCHC 30.6 L, RDW 13.8, Plt Count 242, MPV 11.0, Immature Gran % (Auto) 0.40, Immature Gran # (Auto) 0.04 H, Neutrophils % 86.9 H, Lymphocytes % 5.5 L, Monocytes % 7.1, Eosinophils % 0.0, Basophils % 0.1, Nucleated RBC % 0.0, Neutrophils # 7.9 H, Lymphocytes # 0.50 L, Monocytes # 0.7, Eosinophils # 0.0, Absolute Basophils 0.0 Discharge Location: [facility] Disposition: Hospice Medical Facility Home Health Agency: [facility] Condition: Critical Discharge Activity: Activity as tolerated Discharge Diet: Other - as tolerated Referrals: Ria Schofield MD [Primary Care Provider] - Complete Home Medications List: Complete Home Medication List: albuterol sulfate HFA 90 mcg/actuation aerosol inhaler 2 puff IH Q4H PRN 05/13/18 sodium chloride 0.65 % nasal spray aerosol 1 spray WILIAN DAILY PRN ml 05/13/18 ipratropium-albuterol 0.5 mg-3 mg(2.5 mg base)/3 mL nebulization soln 3 ml IH QID PRN #3 ml 10/13/18 Acetaminophen [Tylenol] 325 mg PO Q6H PRN tab 10/30/18 Famotidine [Pepcid] 20 mg PO DAILY tab 10/30/18 HYDROcodone/ACETAMINOPHEN [[place] 5-325] 1 ea PO Q4H PRN tab 10/30/18 Ibuprofen [Motrin] 400 mg PO Q6H PRN tab 10/30/18 LORazepam [Ativan] 0.5 mg IV Q6H PRN disp.syrin 10/30/18 Mag Hydrox/Aluminum Hyd/Simeth [Maalox Plus Suspension] 30 ml PO Q6H PRN udc 10/30/18 Ondansetron HCl/Pf [Zofran] 4 mg IV Q4H PRN vial 10/30/18 Pantoprazole Sodium [Protonix] 40 mg IV Q24H vial 10/30/18 Polyethylene Glycol 3350 [Miralax] 17 gm PO BID btl 10/30/18 Sennosides/Docusate Sodium [Senokot-S] 1 tab PO BID PRN tab 10/30/18
== END 2018-10-30 16:00 | disposition hospice, home (50) ==
LOC: MS 21:51 → ER 21:51 → MS 10-28 00:56
PROVIDERS: ADMIT Family Medicine; ATTEND Family Medicine
DX: J44.1 Chronic obstructive pulmonary disease with (acute) exacerbation; C56.9 Malignant neoplasm of unspecified ovary; D64.9 Anemia, unspecified; E88.09 Other disorders of plasma-protein metabolism, not elsewhere classified; I10 Essential (primary) hypertension; K21.9 Gastro-esophageal reflux disease without esophagitis; R53.1 Weakness; K59.00 Constipation, unspecified
CPT/HCPCS: 36415; 71010; 71045; 74019; 74020; 80048; 80053; 81001; 83690; 85025; 87086; 93005; 96365; 96374; 96375; 97110; 97163; 99285; G0378; J2405

== ENCOUNTER 2018-10-30 16:08 | Inpatient (IN) | payer MEDICARE, OTHER ==
[2018-10-30] MEDS ORDERED: POLYVINYL ALCOHOL 150 DROP BTL EACHEYE PRN (16:38)
[2018-10-30] MEDS ORDERED: PROMETHAZINE HCL 12.5 MG SUPP.RECT RC PRN (16:38)
[2018-10-30] MEDS ORDERED: BISACODYL 10 MG SUPP.RECT RC PRN (16:38)
[2018-10-30] MEDS ORDERED: LORazepam 2 MG/ML DISP.SYRIN IV PRN (16:38)
[2018-10-30] MEDS ORDERED: ONDANSETRON HCL/PF 2 MG/ML VIAL IV PRN (16:38)
[2018-10-30] MEDS ORDERED: ALBUTEROL SULFATE 2.5 MG/0.5 ML VIAL.NEB IH PRN (16:38)
[2018-10-30] MEDS ORDERED: ATROPINE SULFATE 50 DROP BTL SL PRN (16:38)
[2018-10-30] MEDS ORDERED: MORPHINE SULFATE 10 MG/0.5 ML SYRINGE PO PRN (16:38)
[2018-10-30] MEDS ORDERED: MAG HYDROX/ALUMINUM HYD/SIMETH 30 ML UDC PO PRN (16:42)
[2018-10-30] MEDS ORDERED: LIDOCAINE HCL 100 APPL BTL MM PRN (16:42)
[2018-10-30] MEDS ORDERED: SCOPOLAMINE HYDROBROMIDE 1.5 MG PATC TD SCH (16:45)
--- NOTE | 2018-10-30 16:45 | HP ---
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 She had been losing weight at home, despite having an appetite. She was anemic, had an KAYLEN on admission. No significant lab abnormalities other than the KAYLEN. She did not regain strength over the next couple of days. She and her family were unaware of the extent of her cancer. She had significant discomfort from constipation, which was treated with miralax, senna, dulcolax, and a fleets enema. She also had throat burning, and was given protonix, carafate, famotidine, maalox, and viscous lidocaine. Her BP decreased on 10/30, and her oxygenation also started to decrease to the upper 80's. Fluids were started, but she almost immediately started having lower extremity swelling. Discussion was had with several of her family members, and treatment focus was shifted to comfort measures only. They initially wanted to take her home with hospice, but her condition deteriorated. Her BP decreased further, and it was felt she may pass within 24 hours, and she was admitted to inpatient hospice. Medical History (Last Reviewed 10/30/18 @ 16:24 by Greta Singh RN) Carcinoma of ovary, stage 4 Arthritis Onset Date: Unknown CHF (congestive heart failure) Onset Date: ~01/15/18 COPD (chronic obstructive pulmonary disease) Onset Date: ~11/19/13 Hypertension Onset Date: Unknown Hypothyroidism Onset Date: ~10/20/15 Peptic ulcer Onset Date: Unknown Peripheral edema Onset Date: ~01/15/18 Surgical History: Surgical History (Last Reviewed 10/30/18 @ 16:24 by Greta Singh RN) History of cholecystectomy Onset Date: Unknown History of gastric surgery Onset Date: Unknown History of total abdominal hysterectomy and bilateral salpingo-oophorectomy Onset Date: Unknown Family History: Family History (Last Reviewed 10/30/18 @ 16:25 by Greta Singh RN) Father CAD (coronary artery disease) Mother CAD (coronary artery disease) Diabetes Social History: Patient Lives/Resources Home Utilized Preferred Language Yakut Smoking Status Former smoker Have you smoked in the past 12 No months Do you dip or chew tobacco No Abuse History No History of abuse Psych History No pertinent hx (Last Updated 10/15/18 @ 11:45 by Ria Schofield MD) No Social History Section defined Review Of Systems (GEN) - Review of Systems Generalized/Overall Review: Present: Fatigue, Weight loss. Absent: Fever EENTM: Present: Throat Pain, Other - recent sinus pressure Respiratory: Absent: Shortness of Breath Cardiac: Absent: Chest Pain, Edema Abdominal: Present: Nausea, Constipation. Absent: Bright blood from rectum Neurological: Absent: Headache Immunizations: IMMUNIZATION HX Immunizations Up to Date Yes History of Influenza Vaccine Yes Hx Pneumococcal Vaccination No Allergies/Adverse Reactions: Allergies Allergy/AdvReac Type Severity Reaction Status Date / Time aspirin Allergy Verified 10/30/18 16:24 ciprofloxacin Allergy Verified 10/30/18 16:24 codeine Allergy Verified 10/30/18 16:24 levofloxacin Allergy Verified 10/30/18 16:24 morphine Allergy Verified 10/30/18 16:24 Sulfa (Sulfonamide Allergy Verified 10/30/18 16:24 Antibiotics) amoxicillin trihydrate AdvReac Verified 10/30/18 16:24 [From Augmentin] cephalexin AdvReac Verified 10/30/18 16:24 potassium clavulanate AdvReac Verified 10/30/18 16:24 [From Augmentin] Home Medications: HOME MEDICATIONS albuterol sulfate HFA 90 mcg/actuation aerosol inhaler 2 puff IH Q4H PRN 05/13/18 [Last Taken Unknown] sodium chloride 0.65 % nasal spray aerosol 1 spray WILIAN DAILY PRN ml 05/13/18 [Last Taken Unknown] ipratropium-albuterol 0.5 mg-3 mg(2.5 mg base)/3 mL nebulization soln 3 ml IH QID PRN #3 ml 10/13/18 [Last Taken Unknown] Acetaminophen [Tylenol] 325 mg PO Q6H PRN tab 10/30/18 [Last Taken Unknown] Famotidine [Pepcid] 20 mg PO DAILY tab 10/30/18 [Last Taken Unknown] HYDROcodone/ACETAMINOPHEN [Harper 5-325] 1 ea PO Q4H PRN tab 10/30/18 [Last Taken Unknown] Ibuprofen [Motrin] 400 mg PO Q6H PRN tab 10/30/18 [Last Taken Unknown] LORazepam [Ativan] 0.5 mg IV Q6H PRN disp.syrin 10/30/18 [Last Taken Unknown] Mag Hydrox/Aluminum Hyd/Simeth [Maalox Plus Suspension] 30 ml PO Q6H PRN udc 10/30/18 [Last Taken Unknown] Ondansetron HCl/Pf [Zofran] 4 mg IV Q4H PRN vial 10/30/18 [Last Taken Unknown] Pantoprazole Sodium [Protonix] 40 mg IV Q24H vial 10/30/18 [Last Taken Unknown] Polyethylene Glycol 3350 [Miralax] 17 gm PO BID btl 10/30/18 [Last Taken Unknown] Sennosides/Docusate Sodium [Senokot-S] 1 tab PO BID PRN tab 10/30/18 [Last Taken Unknown] Exam - Exam Vital Signs: Vital Signs - Last Taken Temp 36.3 C 10/30/18 16:27 Pulse 97 10/30/18 16:27 Resp 20 10/30/18 16:27 BP 83/40 L 10/30/18 16:27 Pulse Ox 86 L 10/30/18 16:27 Constitutional: Present: Alert, No distress, Thin and frail Eye Exam: bilateral eye: EOMI Respiratory: Present: decreased breath sounds, No wheezing. Absent: crackles Cardiovascular/Chest: Present: regular rate, rhythm Abdomen: Present: firm, distended Extremity: Present: lower extremity edema - 1+ bilaterally Assessment/Plan - Assessment/Plan (1) Need for comfort care Assessment: Admit for hospice care. Her BP and oxygenation are decreasing, and she may pass in the next 24 hours. Should the family change their mind and want to take her home with hospice, that will be appropriate. Will order IV morphine for pain, and ativan for anxiety. Will keep IV protonix, maalox, and viscous lidocaine for her throat burning. Will also keep bid miralax, dulcolax to avoid obstipation. RN to pronounce. Problem: Acute (2) Hypotension Problem: Acute (3) Anemia Problem: Acute (4) Constipation Problem: Acute (5) Pulmonary HTN Problem: Chronic (6) CHF (congestive heart failure) Problem: Chronic (7) Acute weakness Problem: Acute (8) Elevated serum creatinine Problem: Acute (9) Hypoalbuminemia Problem: Acute (10) Ovarian cancer Problem: Acute
[2018-10-30] MEDS: MORPHINE SULFATE 2 MG/ML DISP.SYRIN IV PRN ×2 (17:50→19:20)
[2018-10-30] MEDS ORDERED: POLYETHYLENE GLYCOL 3350 119 GM BTL PO SCH (21:00)
[2018-10-30] MEDS ORDERED: SENNOSIDES/DOCUSATE SODIUM 1 TAB TABLET PO SCH (21:00)
[2018-10-31 06:46] VITALS: BP 0/0
--- NOTE | 2018-11-06 09:04 | DS ---
Discharge Summary - Provider Primary Care Provider: Ria Schofield Admitting Clinician: Mariann Perez Attending Physician on Admission: Mariann Perez - Date and Time Date of : 10/31/18 Time of : 02:15 - Diagnosis/Cause of (1) Need for comfort care Problems: Acute (2) Hypotension Problems: Acute (3) Anemia Problems: Chronic (4) Constipation Problems: Chronic (5) Pulmonary HTN Problems: Chronic (6) CHF (congestive heart failure) Problems: Chronic (7) Acute weakness Problems: Acute (8) Elevated serum creatinine Problems: Acute (9) Hypoalbuminemia Problems: Acute (10) Ovarian cancer Problems: Acute - Summary Details (narrative): Patient was admitted from home for worsening weakness and acute kidney injury. She no longer had the strength to ambulate to the bathroom at home. She had a past medical history of metastatic ovarian cancer and had been losing weight. 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 She had significant discomfort from constipation, and aggressive treatment was used, including miralax, dulcolax, and a fleets enema, with relief. Extensive discussions were had with her and her family members, and they opted to pursue hospice benefits. She was admitted for inpatient hospice, and early the next morning. Procedures Performed: none - Additional Data Confirmation of as documented by pronouncing clinician: no pulse, no respirations Family: at bedside Practitioner(Attending/PCP) notified: Yes Was code activated: No Autopsy requested: No Hospice patient: Yes
== END 2018-10-31 02:15 | disposition expired | DRG 951 ==
LOC: MS 16:08
PROVIDERS: ADMIT Family Medicine; ATTEND Family Medicine
CPT/HCPCS: J2405